=== PATIENT | male | born 1950 | race Caucasian/White ===

== ENCOUNTER 2020-04-06 20:37 | Emergency (ER) | payer MEDICARE, SELFPAY ==
[2020-04-06 20:48] VITALS: BP 168/95; PULSE 89; RESP 18; TEMP 36.9; O2SAT 97; BMI 18.1
--- NOTE | 2020-04-06 20:51 | XR_ITS ---
EXAMINATION: XR chest 1V CLINICAL INFORMATION: Reason for Exam fall COMPARISON: Prior chest x-ray 2017 TECHNIQUE: XR chest 1V Tubes and lines: None Lungs and Carolyn: Lungs are clear, evaluation limited oblique positioning. Pleura: Normal. Costophrenic angles are sharp. No pneumothorax. Heart and mediastinum: The mediastinum is within normal limits.. Bones: Skeletal structures included are normal for patient's age. XR/XR chest 1V IMPRESSION: No radiographic evidence of acute cardiopulmonary disease. Evaluation of the ribs is limited on chest x-ray, if rib fracture suspected may consider correlation with rib series and/or CT scan.
--- NOTE | 2020-04-06 20:51 | ED_ITS ---
HPI - Fall General Chief Complaint: Fall Stated Complaint: fall Time Seen by Provider: 04/06/20 21:51 Mode of arrival: EMS Limitations: no limitations History of Present Illness HPI Narrative: 70-year-old male presents with weakness, fall, and right elbow pain. He stated that he was in the bathroom doing personal care, his legs went weak and he fell backward. Did not hit his head and denies loss of consciousness. He uses O2 per baseline, takes multiple medications including psychiatric and cardiac meds, and drinks alcohol on a daily basis. he does have a wet chronic cough, and smokes. He did not report any chest pain or pressure, palpitations, Abdominal pain, abdominal distention, dysuria, hematuria, fevers, chills, and edema. MD complaint: fall Onset (ago): minute(s) ( Prior to arrival) Fall from: standing Fall witnessed: no Place fall occurred: home Loss of consciousness: none Prolonged down time: no Symptoms prior to fall: none Context: tripped/slipped and alcohol use Location of injury - extremities: right: elbow Severity: mild Severity scale (1-10): 6 Associated symptoms (after fall): denies Related Data Home Medications Medication Instructions Recorded Confirmed acetaminophen 650 mg PO DAILY 04/06/20 04/06/20 aspirin 81 mg PO DAILY 04/06/20 04/06/20 atorvastatin 40 mg PO DAILY 04/06/20 04/06/20 bupropion HCl 1 tab PO DAILY 04/06/20 04/06/20 carboxymethylcellulose sodium 0.5 drp OPHTHALMIC (EYE) DAILY PRN 04/06/20 04/06/20 [Refresh Tears] diazepam 1 tab PO DAILY 04/06/20 04/06/20 docusate sodium 1 cap PO BID 04/06/20 04/06/20 docusate sodium [DOK] 1 cap PO BID 04/06/20 finasteride 1 tab PO DAILY 04/06/20 04/06/20 fluticasone propionate [Flovent 2 puff INHALATION BID 04/06/20 04/06/20 HFA] isosorbide mononitrate 1 tab PO DAILY 04/06/20 04/06/20 loratadine 1 tab PO DAILY 04/06/20 04/06/20 meclizine 25 mg PO DAILY 04/06/20 04/06/20 metoprolol succinate 1 tab PO DAILY 04/06/20 04/06/20 nitroglycerin 0.4 mg SUBLINGUAL DAILY PRN 04/06/20 04/06/20 risperidone 3 mg PO Q OTHER DAY PRN 04/06/20 04/06/20 sodium chloride 1 mg PO DAILY 04/06/20 04/06/20 tamsulosin 1 cap PO DAILY 04/06/20 04/06/20 Allergies Allergy/AdvReac Type Severity Reaction Status Date / Time No Known Allergies Allergy Unverified 02/29/20 14:50 [No Known Allergies*] N.K.D.A. Allergy Unknown Uncoded 11/09/17 00:00 Review of Systems Review of Systems: Constitutional: No Fever, No Chills ENT/Mouth: No Hoarseness, No sore throat, No Rhinorrhea Eyes: No Redness, No Discharge, No Vision Changes Cardiovascular: No Chest Pain, positive SOB, positive Dyspnea on Exertion, No Edema Respiratory: positive Cough, positive Sputum, positive Wheezing, Gastrointestinal: No Nausea, No Vomiting, No Diarrhea, No abdominal Pain Genitourinary: No Dysuria, No Hematuria Musculoskeletal: right elbow pain, No other joint pain, No Myalgias Skin: No rash Neuro: No Weakness, No Numbness, No Headache Psych: No anxiety, depression, no SI, HI, auditory visual hallucinations Heme/Lymph: No Bruising, No Bleeding Endocrine: No Polyuria, No Polydipsia Yes all other systems are reviewed and are negative [facility] Past Medical History Attestation statement: The following information was validated with the patient. Medical History COPD (chronic obstructive pulmonary disease) Hypertension Social History Social History Advance Directives: No Advance Directives Information Provided: Yes Physical Exam Vital Signs: Vital Signs: Vital Signs Temp Pulse Resp BP Pulse Ox 04/06/20 22:00 79 18 178/94 H 100 04/06/20 21:06 81 18 150/90 H 97 04/06/20 20:48 98.4 F 89 18 168/95 H 97 Body Mass Index 18.1 Appearance: Alert. Oriented X3. No acute distress. Head: Normal external exam. Normocephalic. Atraumatic. No Weeks signs noted. No raccoon eyes noted Eyes: PERRLA. EOMI. Conjunctiva and sclera normal. Eyelids normal. ENT: TM's Normal. Pharynx normal. Uvula midline. Moist mucous membranes. No trismus noted. No drooling noted. No muffled voice noted. Neck: Normal inspection. Neck supple. No adenopathy. Thyroid Normal. No meningeal signs. No neck mass noted. CVS: Normal heart rate and rhythm. Heart sound normal. No murmurs noted. Pulses equal to all extremities. Respiratory: wet cough, O2 dependent, coarse lung sounds, No respiratory distress. Painless inspiration. Chest nontender. No accessory muscle usage noted or decreased air movement noted. Abdomen: Soft and nontender. Bowel sounds normal in all 4 quadrants. No distention noted. No organomegaly noted. No visible injury noted. Back: No CVA tenderness. Full range of motion noted. Skin: Skin warm and dry. Normal skin color. Normal skin turgor. No rashes/lesions/lacerations noted. Extremities: No lower extremity edema. Extremities exhibit normal range of motion. Extremities nontender. Neuro: cranial nerves 2-12 intact, no focal neural deficits, strength 5/5 to all extremities, No motor deficit. No sensory deficit. Reflexes normal. Course Course Course Narrative: plan of care is to rule out infection, pneumonia, ETOH or drug intoxication, electrolyte balance, infection. Patient does have coarse lung sounds which have been chronic, is O2 dependent. Uses alcohol on a daily basis. Will rule out ACS. EKG shows ST wave changes consistent with LVH, although more prominent today Than prior exams. We will order a 2nd troponin. Second troponin is 13.7, there is no delta wave, plan of care is to discharge home. We did address his alcohol consumption, he is not interested in detox at this time. Patient does understand that he must follow up with primary care provider as the CT scan does show some changes that indicate possibility of lung cancer. Patient verbalizes understanding of and agrees to plan of care to discharge home. MDM - Fall MDM Narrative Medical decision making narrative: Pneumonia, ACS, UTI, alcohol intoxication, substance abuse Differential Diagnosis Differential diagnosis: Likely syncope Medical Records Attestation: I reviewed the patient's medical records. Lab Data Attestation: I reviewed the patient's lab results. Result diagrams: 04/06/20 21:25 04/06/20 21:25 Labs: Lab Results 04/06/20 04/06/20 04/06/20 Range/Units 21:25 21:25 21:25 WBC (4.8-10.8) X10*3/uL RBC (4.60-5.80) X10*6/uL Hgb (14.0-18.0) g/dl Hct (42-52) % MCV (80-98) fL MCH (27.0-33.0) pg MCHC (31.0-36.0) g/dl RDW (11.0-16.0) % Plt Count (160-400) X10*3/uL MPV (9.4-12.4) fL Immature Gran % (Auto) (0.0-0.4) % Neut % (Auto) (45-73) % Lymph % (Auto) (20-40) % [place] % (Auto) (2-11) % Eos % (Auto) (0-4) % Baso % (Auto) (0-2) % Lymph # (Auto) (1.2-4.9) X10*3/uL [place] # (Auto) (0.1-1.2) X10*3/uL Eos # (Auto) (0.0-0.4) X10*3/uL Baso # (Auto) (0.0-0.2) X10*3/uL Abs Immat Gran (auto) (0.00-0.03) X10*3/uL Absolute Neuts (auto) (2.0-8.3) X10*3/uL Absolute Nucleated RBC (0.0-0.012) X10*3/uL Nucleated RBC % (auto) (0.0-0.2) /100WBC Sodium (135-145) mmol/L Potassium (3.3-5.1) mmol/l Chloride (96-108) mmol/L Carbon Dioxide (22-29) mmol/L Anion Gap (12-20) BUN (9-16) mg/dL Creatinine (0.5-1.4) mg/dL Estim Creat Clear Calc Estimated GFR POC Glucose (60-115) mg/dL Random Glucose (60-115) mg/dL Calcium (8.4-10.2) mg/dL Magnesium Cancelled Troponin I High Sens 13.4 (<3.5-35.0) ng/L Urine Color Urine Appearance Urine pH (5.0-8.0) Ur Specific [place] (1.005-1.025) Urine Protein (NEG-TRACE) MG/DL Urine Glucose (UA) (NEG) MG/DL Urine Ketones (NEG) MG/DL Urine Blood (NEG) Urine Nitrite (NEG) Ur Leukocyte Esterase (NEG) Urine RBC (0) /HPF Urine WBC (0-4) /HPF Ur Squamous Epith Cells /LPF Urine Bacteria /LPF Urine Opiates Screen (Not Detect) Ur Barbiturates Screen (Not Detect) Ur Phencyclidine Scrn (Not Detect) Ur Amphetamines Screen (Not Detect) U Benzodiazepines Scrn (Not Detect) Urine Cocaine Screen (Not Detect) U Marijuana (THC) Screen (Not Detect) Ethyl Alcohol 108 mg/dL 04/06/20 04/06/20 04/06/20 Range/Units 21:25 21:25 21:25 WBC 6.2 (4.8-10.8) X10*3/uL RBC 4.30 L (4.60-5.80) X10*6/uL Hgb 14.6 (14.0-18.0) g/dl Hct 40.5 L (42-52) % MCV 94.2 (80-98) fL MCH 34.0 H (27.0-33.0) pg MCHC 36.0 (31.0-36.0) g/dl RDW 12.1 (11.0-16.0) % Plt Count 155 L (160-400) X10*3/uL MPV 9.0 L (9.4-12.4) fL Immature Gran % (Auto) 0.3 (0.0-0.4) % Neut % (Auto) 72.9 (45-73) % Lymph % (Auto) 19.3 L (20-40) % [place] % (Auto) 6.8 (2-11) % Eos % (Auto) 0.5 (0-4) % Baso % (Auto) 0.2 (0-2) % Lymph # (Auto) 1.2 (1.2-4.9) X10*3/uL [place] # (Auto) 0.4 (0.1-1.2) X10*3/uL Eos # (Auto) 0.0 (0.0-0.4) X10*3/uL Baso # (Auto) 0.0 (0.0-0.2) X10*3/uL Abs Immat Gran (auto) 0.02 (0.00-0.03) X10*3/uL Absolute Neuts (auto) 4.5 (2.0-8.3) X10*3/uL Absolute Nucleated RBC 0.000 (0.0-0.012) X10*3/uL Nucleated RBC % (auto) 0.0 (0.0-0.2) /100WBC Sodium 130 L (135-145) mmol/L Potassium 4.2 (3.3-5.1) mmol/l Chloride 92 L (96-108) mmol/L Carbon Dioxide 26 (22-29) mmol/L Anion Gap 16 (12-20) BUN 5 L (9-16) mg/dL Creatinine 0.60 (0.5-1.4) mg/dL Estim Creat Clear Calc 92.6 Estimated GFR > 60 POC Glucose (60-115) mg/dL Random Glucose 84 (60-115) mg/dL Calcium 8.9 (8.4-10.2) mg/dL Magnesium 1.8 Troponin I High Sens (<3.5-35.0) ng/L Urine Color YELLOW Urine Appearance CLEAR Urine pH 6.5 (5.0-8.0) Ur Specific [place] 1.010 (1.005-1.025) Urine Protein NEG (NEG-TRACE) MG/DL Urine Glucose (UA) NEG (NEG) MG/DL Urine Ketones NEG (NEG) MG/DL Urine Blood TRACE (NEG) Urine Nitrite NEG (NEG) Ur Leukocyte Esterase NEG (NEG) Urine RBC 1-4 (0) /HPF Urine WBC 1-4 (0-4) /HPF Ur Squamous Epith Cells TRACE /LPF Urine Bacteria TRACE /LPF Urine Opiates Screen (Not Detect) Ur Barbiturates Screen (Not Detect) Ur Phencyclidine Scrn (Not Detect) Ur Amphetamines Screen (Not Detect) U Benzodiazepines Scrn (Not Detect) Urine Cocaine Screen (Not Detect) U Marijuana (THC) Screen (Not Detect) Ethyl Alcohol mg/dL 04/06/20 04/06/20 04/06/20 Range/Units 21:25 21:37 23:38 WBC (4.8-10.8) X10*3/uL RBC (4.60-5.80) X10*6/uL Hgb (14.0-18.0) g/dl Hct (42-52) % MCV (80-98) fL MCH (27.0-33.0) pg MCHC (31.0-36.0) g/dl RDW (11.0-16.0) % Plt Count (160-400) X10*3/uL MPV (9.4-12.4) fL Immature Gran % (Auto) (0.0-0.4) % Neut % (Auto) (45-73) % Lymph % (Auto) (20-40) % [place] % (Auto) (2-11) % Eos % (Auto) (0-4) % Baso % (Auto) (0-2) % Lymph # (Auto) (1.2-4.9) X10*3/uL [place] # (Auto) (0.1-1.2) X10*3/uL Eos # (Auto) (0.0-0.4) X10*3/uL Baso # (Auto) (0.0-0.2) X10*3/uL Abs Immat Gran (auto) (0.00-0.03) X10*3/uL Absolute Neuts (auto) (2.0-8.3) X10*3/uL Absolute Nucleated RBC (0.0-0.012) X10*3/uL Nucleated RBC % (auto) (0.0-0.2) /100WBC Sodium (135-145) mmol/L Potassium (3.3-5.1) mmol/l Chloride (96-108) mmol/L Carbon Dioxide (22-29) mmol/L Anion Gap (12-20) BUN (9-16) mg/dL Creatinine (0.5-1.4) mg/dL Estim Creat Clear Calc Estimated GFR POC Glucose 84 (60-115) mg/dL Random Glucose (60-115) mg/dL Calcium (8.4-10.2) mg/dL Magnesium Troponin I High Sens 13.7 (<3.5-35.0) ng/L Urine Color Urine Appearance Urine pH (5.0-8.0) Ur Specific [place] (1.005-1.025) Urine Protein (NEG-TRACE) MG/DL Urine Glucose (UA) (NEG) MG/DL Urine Ketones (NEG) MG/DL Urine Blood (NEG) Urine Nitrite (NEG) Ur Leukocyte Esterase (NEG) Urine RBC (0) /HPF Urine WBC (0-4) /HPF Ur Squamous Epith Cells /LPF Urine Bacteria /LPF Urine Opiates Screen Not Detected (Not Detect) Ur Barbiturates Screen Not Detected (Not Detect) Ur Phencyclidine Scrn Not Detected (Not Detect) Ur Amphetamines Screen Not Detected (Not Detect) U Benzodiazepines Scrn POSITIVE H (Not Detect) Urine Cocaine Screen Not Detected (Not Detect) U Marijuana (THC) Screen Not Detected (Not Detect) Ethyl Alcohol mg/dL Imaging Data Chest x-ray: Attestation: I personally reviewed and interpreted this imaging study as follows: Radiologist's impression: TECHNIQUE: XR chest 1V Tubes and lines: None Lungs and Carolyn: Lungs are clear, evaluation limited oblique positioning. Pleura: Normal. Costophrenic angles are sharp. No pneumothorax. Heart and mediastinum: The mediastinum is within normal limits.. Bones: Skeletal structures included are normal for patient's age. XR/XR chest 1V IMPRESSION: No radiographic evidence of acute cardiopulmonary disease. Evaluation of the ribs is limited on chest x-ray, if rib fracture suspected may consider correlation with rib series and/or CT scan. CT scan - chest: Attestation: I personally reviewed and interpreted this imaging study as follows: Radiologist's impression: CT CHEST WITHOUT CONTRAST CLINICAL INFORMATION: Shortness of breath COMPARISON: Plain chest radiographs from 04/06/2020. Chest CT 08/26/2015. TECHNIQUE: Multidetector volumetric CT imaging of the chest was done. Axial MIP volume rendering provided. Sagittal and coronal reformatted images were obtained. This CT examination was performed using dose optimization techniques as appropriate, variously including the following: *Automated exposure control *Adjustment of mA and/or kV according to patient size (this includes techniques or standardized protocols for targeted exams where dose is matched to indication/reason for exam; i.e. extremities or head) *Use of iterative reconstruction technique DLP: 227 mGy-cm FINDINGS: WELFARE SUPERVISOR: Chronic severe hyperinflation. Chronic elevation of left diaphragm possibly related to underlying scoliosis. LUNGS: Severe emphysema. Interval formation of bullous disease in the right lower lobe. This may represent postinflammatory pneumatoceles. Rarely, pulmonary neoplasia can present as a thick-walled cyst. Advise entry of the patient into a program for yearly low-dose lung CT screening. A fissural nodule (series 4 image 38/66) consistent with a lymph node. Bibasilar subpleural reticulation, likely early fibrosis/smoking-related interstitial lung disease. Narrowing of the trachea in the coronal plane consistent with saber-sheath trachea of COPD. Secretions are present in the trachea and main bronchi. No fixed endobronchial lesion seen. MEDIASTINUM: No mediastinal mass. No lymphadenopathy. No thyroid lesion. Moderate atherosclerotic peripheral vascular disease. Normal caliber thoracic aorta. Marked three-vessel coronary disease. Minor pericardial thickening. No hiatal hernia. PLEURA: There may be minor pleural thickening on the left underlying dependent atelectasis. No effusion. AXILLA: No lymphadenopathy. UPPER ABDOMEN: A 2 cm liver cyst near the IVC. Atherosclerotic peripheral vascular disease. Bilateral renal cysts. Left adrenal hypertrophy. OSSEOUS STRUCTURES: Moderate degenerative disease throughout the visualized spine. CT/CT chest wo con IMPRESSION: 1. Severe emphysema. 2. New abnormally thick-walled complex bulla at the right base. This can be an atypical presentation of lung cancer. Recommend repeat low-dose noncontrast CT scan of the chest in 3 months time. Recommend entry of the patient into a yearly program of low-dose lung CT screening. 3. Coronary artery disease and atherosclerotic peripheral vascular disease. ECG Data Attestation: I personally reviewed and interpreted this ECG as follows: ECG interpretation date: 04/06/20 ECG interpretation time: 21:10 Prior ECG tracings: available for review Interpretation: Vent. Rate : 077 BPM Atrial Rate : 077 BPM P-R Int : 262 ms QRS Dur : 104 ms QT Int : 394 ms P-R-T Axes : 085 018 107 degrees QTc Int : 445 ms Sinus rhythm with 1st degree A-V block Left ventricular hypertrophy with repolarization abnormality Inferior infarct (cited on or before 01-MAR-2002) Abnormal ECG When compared with ECG of 08-DEC-2016 18:42, Premature ventricular complexes are no longer Present ST now depressed in Lateral leads Inverted T waves have replaced nonspecific T wave abnormality in Lateral leads Discharge Plan Discharge Clinical Impression: Alcohol abuse Lung cancer Qualifiers: Laterality: right Lung location: lower lobe of lung Qualified Code(s): C34.31 - Malignant neoplasm of lower lobe, right bronchus or lung Patient Disposition: Home, Self-Care Instructions: Lung Cancer (DC), Abuse of Alcohol (ED), Alcohol Use Disorder (ED) Additional Instructions: you were evaluated for weakness and fall. Your blood alcohol was 108. please do not mix alcohol with your psychiatric medications. Alcohol and benzo diazepam can cause significant side effects, is dangerous to use together, and increases risk for falls. Please follow-up with . Please call and request an appointment for an evaluation. We referred you to Dr. Pacheco, she Is an oncologist, a physician that specializes in cancer. Please call and request an appointment. CT scan of the chest shows an abnormality to the right lower lung consistent with lung cancer. You must follow-up with your primary care provider within the next week. Thank you for choosing this emergency department for evaluation. Please follow-up with primary care physician as needed. Return to the emergency depart ment for any new, concerning, or worsening symptoms. Prescriptions: No Action acetaminophen 650 mg tablet extended release 650 mg PO DAILY RF: 0 atorvastatin 40 mg tablet 40 mg PO DAILY RF: 0 bupropion HCl 150 mg tablet sustained-release 12 hr 1 tab PO DAILY RF: 0 metoprolol succinate 50 mg tablet extended release 24 hr 1 tab PO DAILY RF: 0 risperidone 4 mg tablet 3 mg PO Q OTHER DAY PRN (Reason: Chest Pain) RF: 0 isosorbide mononitrate 30 mg tablet extended release 24 hr 1 tab PO DAILY RF: 0 sodium chloride 1 gram tablet 1 mg PO DAILY RF: 0 meclizine 12.5 mg tablet 25 mg PO DAILY RF: 0 aspirin 81 mg tablet,delayed release (DR/EC) 81 mg PO DAILY RF: 0 tamsulosin 0.4 mg capsule 1 cap PO DAILY RF: 0 Refresh Tears 0.5 % drops 0.5 drp ophthalmic (eye) DAILY PRN (Reason: Dry Eyes) RF: 0 nitroglycerin 0.4 mg tablet, sublingual 0.4 mg sublingual DAILY PRN (Reason: Chest Pain) RF: 0 docusate sodium 100 mg capsule 1 cap PO BID RF: 0 docusate sodium [DOK] 100 mg capsule 1 cap PO BID RF: 0 Flovent HFA 220 mcg/actuation HFA aerosol inhaler 2 puff inhalation BID RF: 0 finasteride 5 mg tablet 1 tab PO DAILY RF: 0 loratadine 10 mg tablet 1 tab PO DAILY RF: 0 diazepam 5 mg tablet 1 tab PO DAILY RF: 0 Referrals: Ese Pacheco MD [Physician] - 2 days ( abnormal CT scan indicative of lung cancer) Americo Menjivar MD [Physician] - 2 days ( Weakness)
--- NOTE | 2020-04-06 20:54 | PC.NURSE ---
Pt to room #14 after falling after legs got weak and fell to the floor. PT denies any LOC, head/neck pain. Pt lives at home with his dog. Pt arrives A&Ox3, skin w/d, respirations easy, n/l. Awaiting for MD's eval.
[2020-04-06 21:06] VITALS: BP 150/90; PULSE 81; RESP 18; O2SAT 97
--- NOTE | 2020-04-06 21:09 | PC.NURSE ---
EKG obtained to
[2020-04-06 21:39] LABS: Basophils Percent Auto 0.2 % (0-2); Eosinophils Percent Auto 0.5 % (0-4); Glucose Urine UA NEG (NEG); Hematocrit 40.5 % (42-52); Hemoglobin 14.6 g/dl (14.0-18.0); Imm Gran Abs Auto 0.02 X10*3/uL (0.00-0.03); Imm Gran Pct Auto 0.3 % (0.0-0.4); Leukocyte Esterase Urine NEG (NEG); Lymphocytes Absolute Auto 1.2 X10*3/uL (1.2-4.9); Lymphocytes Percent Auto 19.3 % (20-40); MANUAL DIFF FLAG NO; Mean Corpuscular Volume 94.2 fL (80-98); Monocytes Absolute Auto 0.4 X10*3/uL (0.1-1.2); Monocytes Percent Auto 6.8 % (2-11); Neutrophils Absolute Auto 4.5 X10*3/uL (2.0-8.3); Neutrophils Percent Auto 72.9 % (45-73); Nitrite Urine NEG (NEG); PH 6.5 (5.0-8.0); Platelet Count 155 X10*3/uL (160-400); Red Cell Distribution Width 12.1 % (11.0-16.0); Urine Blood TRACE (NEG); Urine Ketones NEG (NEG); Urine Protein NEG (NEG-TRACE); White Blood Count 6.2 X10*3/uL (4.8-10.8)
[2020-04-06 21:40] LABS: Appearance Urine CLEAR; Color Urine YELLOW
[2020-04-06 21:40] LABS: Glucose, Whole Blood 84 mg/dL (60-115)
[2020-04-06 21:50] LABS: Bacteria Urine TRACE /LPF; Squamous Epithelial Cell Urine TRACE /LPF
--- NOTE | 2020-04-06 21:51 | CT_ITS ---
EXAMINATION: CT CHEST WITHOUT CONTRAST CLINICAL INFORMATION: Shortness of breath COMPARISON: Plain chest radiographs from 04/06/2020. Chest CT 08/26/2015. TECHNIQUE: Multidetector volumetric CT imaging of the chest was done. Axial MIP volume rendering provided. Sagittal and coronal reformatted images were obtained. This CT examination was performed using dose optimization techniques as appropriate, variously including the following: *Automated exposure control *Adjustment of mA and/or kV according to patient size (this includes techniques or standardized protocols for targeted exams where dose is matched to indication/reason for exam; i.e. extremities or head) *Use of iterative reconstruction technique DLP: 227 mGy-cm FINDINGS: SIGNAL OPERATOR: Chronic severe hyperinflation. Chronic elevation of left diaphragm possibly related to underlying scoliosis. LUNGS: Severe emphysema. Interval formation of bullous disease in the right lower lobe. This may represent postinflammatory pneumatoceles. Rarely, pulmonary neoplasia can present as a thick-walled cyst. Advise entry of the patient into a program for yearly low-dose lung CT screening. A fissural nodule (series 4 image 38/66) consistent with a lymph node. Bibasilar subpleural reticulation, likely early fibrosis/smoking-related interstitial lung disease. Narrowing of the trachea in the coronal plane consistent with saber-sheath trachea of COPD. Secretions are present in the trachea and main bronchi. No fixed endobronchial lesion seen. MEDIASTINUM: No mediastinal mass. No lymphadenopathy. No thyroid lesion. Moderate atherosclerotic peripheral vascular disease. Normal caliber thoracic aorta. Marked three-vessel coronary disease. Minor pericardial thickening. No hiatal hernia. PLEURA: There may be minor pleural thickening on the left underlying dependent atelectasis. No effusion. AXILLA: No lymphadenopathy. UPPER ABDOMEN: A 2 cm liver cyst near the IVC. Atherosclerotic peripheral vascular disease. Bilateral renal cysts. Left adrenal hypertrophy. OSSEOUS STRUCTURES: Moderate degenerative disease throughout the visualized spine. CT/CT chest wo con IMPRESSION: 1. Severe emphysema. 2. New abnormally thick-walled complex bulla at the right base. This can be an atypical presentation of lung cancer. Recommend repeat low-dose noncontrast CT scan of the chest in 3 months time. Recommend entry of the patient into a yearly program of low-dose lung CT screening. 3. Coronary artery disease and atherosclerotic peripheral vascular disease.
[2020-04-06 22:00] VITALS: BP 178/94; PULSE 79; RESP 18; O2SAT 100
[2020-04-06 22:20] LABS: Ethanol 108 mg/dL
[2020-04-06 22:23] LABS: Amphetamine Screen Urine Not Detected (Not Detect); Anion Gap 16 (12-20); Barbiturates, Urine Not Detected (Not Detect); Benzodiazepines Screen Urine POSITIVE (Not Detect); Blood Urea Nitrogen 5 mg/dL (9-16); Calcium 8.9 mg/dL (8.4-10.2); Cannabinoid Screen Urine Not Detected (Not Detect); Carbon Dioxide 26 mmol/L (22-29); Chloride 92 mmol/L (96-108); Cocaine Screen Urine Not Detected (Not Detect); Creatinine Clr Calc Pharmacy 92.6; Estimated Glomerular Filt Rate > 60; Glucose Random 84 mg/dL (60-115); Opiate Screen Urine Not Detected (Not Detect); Phencyclidine Screen Urine Not Detected (Not Detect); Potassium 4.2 mmol/l (3.3-5.1); Sodium 130 mmol/L (135-145)
[2020-04-06 22:30] LABS: Troponin-I High Sensitivity 13.4 ng/L (<3.5-35.0)
[2020-04-06] MEDS: 0.9 % Sodium Chloride 1,000 ML 999 ML IVCONT (22:45)
[2020-04-06 22:48] LABS: Magnesium 1.8 mg/dL (1.6-2.6)
--- NOTE | 2020-04-06 23:45 | PC.NURSE ---
Repeat Troponin drawn to lab. PA in room for re-eval of pt. pt remains A&Ox3, skin w/d. respirations easy, n/l. Pt awaiting for possible d/c to home,
[2020-04-07] VITALS: BP 187/96; PULSE 89; RESP 18; O2SAT 96
[2020-04-07 00:41] LABS: Troponin-I High Sensitivity 13.7 ng/L (<3.5-35.0)
[2020-04-07 01:14] VITALS: BP 158/90; PULSE 88; RESP 18; O2SAT 96
--- NOTE | 2020-04-07 01:24 | PC.NURSE ---
EMS here for transport to home. Pt left ED in NAD. Pt denies any complaints upon discharge.
== END 2020-04-07 01:28 | disposition home or self-care (01) ==
PROVIDERS: Nurse Practitioner Family; Emergency Provider Emergency Medicine
DX: S59.901A Unspecified injury of right elbow, initial encounter (principal); M25.521 Pain in right elbow; F10.129 Alcohol abuse with intoxication, unspecified; C34.31 Malignant neoplasm of lower lobe, right bronchus or lung; R06.02 Shortness of breath; I10 Essential (primary) hypertension; Y90.5 Blood alcohol level of 100-119 mg/100 ml; W01.0XXA Fall on same level from slipping, tripping and stumbling without subsequent striking against object, initial encounter; Y93.9 Activity, unspecified; Y92.002 Bathroom of unspecified non-institutional (private) residence as the place of occurrence of the external cause; Z79.899 Other long term (current) drug therapy; F17.200 Nicotine dependence, unspecified, uncomplicated; Z71.6 Tobacco abuse counseling
CPT/HCPCS: 36415; 71045; 71250; 80048; 80307; 80320; 81001; 82947; 83735; 84484; 85025; 93005; 96360; 99284

== ENCOUNTER 2020-08-25 09:44 | Inpatient (IN) | payer OTHER, SELFPAY ==
[2020-08-25] VITALS (10 sets, daily range): BP systolic 110–186; BP diastolic 64–109; PULSE 86–109; RESP 18–20; TEMP 36.7–36.8; O2SAT 95; BMI 21.7
--- NOTE | 2020-08-25 10:06 | ECG_ITS ---
Test Reason : SOB Blood Pressure : / mmHG Vent. Rate : 088 BPM Atrial Rate : 088 BPM P-R Int : 236 ms QRS Dur : 102 ms QT Int : 360 ms P-R-T Axes : 020 021 102 degrees QTc Int : 435 ms Sinus rhythm with 1st degree A-V block with occasional Premature ventricular complexes and Premature atrial complexes Inferior infarct (cited on or before 01-MAR-2002) T wave abnormality, consider lateral ischemia Abnormal ECG When compared with ECG of 06-APR-2020 21:10, Premature ventricular complexes are now Present Premature atrial complexes are now Present Referred By: Mckenna Cole Electronically Signed By:Eldon Wright
--- NOTE | 2020-08-25 10:07 | ED.GIBLEED ---
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 He reports he was up all night having black bowel movements. It is associated with dull central abdominal pain. He has a history of GI bleed last year; reports an EGD was performed but no cause was identified. He denies any history of liver disease. He is on baby aspirin, no anticoagulation, no iron. He reports chills yesterday but no fevers. He has a chronic smoker's cough which is unchanged. He denies SOB or chest pain. He reports dizziness since the vomiting and black stools started. MD complaint: coffee ground emesis and melena Onset (ago): day(s) (1) Pain Consistency: constant Severity: mild Relieving factors: none Exacerbating factors: none Context: history of GI bleed Associated symptoms: abdominal pain, nausea, vomiting, loss of appetite, malaise and weakness Treatments Prior to Arrival: none Related Data Home Medications Medication Instructions Recorded Confirmed acetaminophen 650 mg PO DAILY 04/06/20 04/06/20 aspirin 81 mg PO DAILY 04/06/20 04/06/20 atorvastatin 40 mg PO DAILY 04/06/20 04/06/20 bupropion HCl 1 tab PO DAILY 04/06/20 04/06/20 carboxymethylcellulose sodium 0.5 drp OPHTHALMIC (EYE) DAILY PRN 04/06/20 04/06/20 [Refresh Tears] diazepam 1 tab PO DAILY 04/06/20 04/06/20 docusate sodium 1 cap PO BID 04/06/20 04/06/20 docusate sodium [DOK] 1 cap PO BID 04/06/20 finasteride 1 tab PO DAILY 04/06/20 04/06/20 fluticasone propionate [Flovent 2 puff INHALATION BID 04/06/20 04/06/20 HFA] isosorbide mononitrate 1 tab PO DAILY 04/06/20 04/06/20 loratadine 1 tab PO DAILY 04/06/20 04/06/20 meclizine 25 mg PO DAILY 04/06/20 04/06/20 metoprolol succinate 1 tab PO DAILY 04/06/20 04/06/20 nitroglycerin 0.4 mg SUBLINGUAL DAILY PRN 04/06/20 04/06/20 risperidone 3 mg PO Q OTHER DAY PRN 04/06/20 04/06/20 sodium chloride 1 mg PO DAILY 04/06/20 04/06/20 tamsulosin 1 cap PO DAILY 04/06/20 04/06/20 Allergies Allergy/AdvReac Type Severity Reaction Status Date / Time No Known Allergies Allergy Unverified 02/29/20 14:50 [No Known Allergies*] N.K.D.A. Allergy Unknown Uncoded 11/09/17 00:00 Review of Systems Review of Systems: Constitutional: No Fever, + Chills ENT/Mouth: No sore throat, No Rhinorrhea, No Swallowing Difficulty Eyes: No Eye Pain, No Swelling, No Redness Cardiovascular: No Chest Pain, No SOB, No Orthopnea, No Edema Respiratory: + Cough, No Sputum, No Wheezing, No dyspnea Gastrointestinal: + Nausea, + Vomiting, + Diarrhea (loose), + abdominal Pain, No Hematochezia, + Melena Genitourinary: No Dysuria, No Urinary Frequency, No Hematuria Musculoskeletal: No joint pain, No Myalgias Skin: No Skin Lesions, No rash Neuro: No Weakness, No Numbness, + Dizziness, No Headache Psych: No Anxiety/Panic, No Depression Heme/Lymph: No Bruising, No Lymphadenopathy Endocrine: No Polyuria, No Polydipsia PMFSH Past Medical History Attestation statement: The following information was validated with the patient. Medical History COPD (chronic obstructive pulmonary disease) Depression High cholesterol Hypertension Surgical History (Updated 08/25/20 @ 09:58 by Edita Maddox) History of nasal surgery Social History Social History (Updated 08/25/20 @ 10:16 by WILLI Cardona) Alcohol intake: current Alcohol intake frequency: 0-2 drinks per day Alcohol type: beer Smoking Status: Current every day smoker Tobacco Type: Cigarette Cigarettes Per Day: 8 Smoked in Last 30 Days: Yes Patient Interested in Nicotine Replacement: No Use of substances other than those prescribed or required for medical reasons: No Advance Directives: No Advance Directives Information Provided: No Physical Exam Vital Signs: Vital Signs: Last Vital Signs Temp 98.0 F 08/25/20 10:13 Pulse 99 08/25/20 12:34 Resp 18 08/25/20 10:13 BP 173/91 H 08/25/20 12:34 Pulse Ox 95 08/25/20 10:13 Body Mass Index 21.7 Appearance: Alert. Oriented X3. No acute distress. Eyes: Pupils equal, round and reactive to light. ENT: Pharynx normal. Neck: Normal inspection. Neck supple. CVS: Normal heart rate and rhythm. Pulses normal. Respiratory: No respiratory distress. Breath sounds normal. Abdomen: Soft with mild epigastric tenderness, no rebound or guarding. +BS x4. ADAN: dark brown stool noted around anus, normal shincter tone, mild tenderness, dark brown stool on rectal. Skin: Skin warm and dry. Normal skin color. Normal skin turgor. No rashes. Extremities: No lower extremity edema. Neuro: Oriented X 3. No motor deficit. No sensory deficit. Affect is flat. Course Course Course Narrative: 70 y/o male presenting with coffee ground emesis and melena x1 day, associated with dull abdominal pain and dizziness. Appears slightly pale on exam. No tachycardic. Low suspicion for variceal bleed given lack of liver disease and vomitus was dark in color. Concern for upper GI bleed, possible gastritis vs PUD. Will get CBC, INR, type and screen, CMP, EKG and orthostatic VS. Will gently hydrate now. Reevaluation(s) Reevaluation #1: Labs showing mild normocytic anemia with H/H 13.2/35.6 from a baseline of 14.6/40.5 back in March 2020. Stool is heme negative. Orthostatic VS and other labs still pending. Reevaluation #2: Sodium critically low at 118. He is on 1 g salt tab once per day with known hx SIADH. He reports he his not supposed to be on a fluid restriction. He has been drinking 4-5 water bottles per day. He is AAO x3 but has symptoms of mild-moderate hyponatremia with fatgiue, weakness, nausea, vomiting & dizziness. He has been given 1L IVF. Will repeat sodium now as well as urine lytes. Nephrology has been consulted for recs. Reevaluation #3: Urine sodium <20 with low urine osm consistent with hypovolemia, mixed picture with hx SIADH and not adhering to a fluid restriction. Repeat sodium 121 which corresponds to hypovolemia. [facility] who is recommending NPO, Q4 sodium checks. If next sodium is 121 or less to give additional saline bolus. He also recommends starting salt tabs 1 g TID. Ordered placed. Spoke with Elvira Goldsmith who accepts patient for admission. MDM - GI Bleed Medical Records Attestation: I reviewed the patient's medical records. Lab Data Attestation: I reviewed the patient's lab results. Result diagrams: 08/25/20 10:23 08/25/20 12:43 Labs: Lab Results 08/25/20 08/25/20 08/25/20 Range/Units 10:23 10:23 10:23 WBC 11.0 H (4.8-10.8) X10*3/uL RBC 3.86 L (4.60-5.80) X10*6/uL Hgb 13.2 L (14.0-18.0) g/dl Hct 35.6 L (42-52) % MCV 92.2 (80-98) fL MCH 34.2 H (27.0-33.0) pg MCHC 37.1 H (31.0-36.0) g/dl RDW 11.8 (11.0-16.0) % Plt Count 162 (160-400) X10*3/uL MPV 9.0 L (9.4-12.4) fL Immature Gran % (Auto) 0.6 H (0.0-0.4) % Neut % (Auto) 83.3 H (45-73) % Lymph % (Auto) 9.0 L (20-40) % [place] % (Auto) 6.9 (2-11) % Eos % (Auto) 0.1 (0-4) % Baso % (Auto) 0.1 (0-2) % Lymph # (Auto) 1.0 L (1.2-4.9) X10*3/uL [place] # (Auto) 0.8 (0.1-1.2) X10*3/uL Eos # (Auto) 0.0 (0.0-0.4) X10*3/uL Baso # (Auto) 0.0 (0.0-0.2) X10*3/uL Abs Immat Gran (auto) 0.07 H (0.00-0.03) X10*3/uL Absolute Neuts (auto) 9.1 H (2.0-8.3) X10*3/uL Absolute Nucleated RBC 0.000 (0.0-0.012) X10*3/uL Nucleated RBC % (auto) 0.0 (0.0-0.2) /100WBC PT 13.5 H (10.8-13.0) SEC INR 1.1 (0.9-1.1) APTT 35.5 (24.1-38.0) SEC Sodium 118 L* (135-145) mmol/L Potassium 3.8 (3.3-5.1) mmol/L Chloride 83 L (96-108) mmol/L Carbon Dioxide 28 (22-29) mmol/L Anion Gap 11 L (12-20) BUN 6 L (9-16) mg/dL Creatinine 0.62 (0.5-1.4) mg/dL Estim Creat Clear Calc 98.7 Estimated GFR > 60 Random Glucose 102 (60-115) mg/dL Calcium 8.2 L D (8.4-10.2) mg/dL Magnesium 1.6 (1.6-2.6) mg/dL Total Bilirubin 0.8 (0.0-1.0) mg/dL Direct Bilirubin 0.5 (0.0-0.5) mg/dL AST 22 (5-37) U/L ALT 12 (0-40) U/L Alkaline Phosphatase 67 (39-117) U/L Troponin I High Sens (<3.5-35.0) ng/L Total Protein 6.0 L (6.5-8.0) g/dL Albumin 3.5 (3.5-5.0) g/dL Urine Color Urine Appearance Urine pH (5.0-8.0) Ur Specific [place] (1.005-1.025) Urine Protein (NEG-TRACE) MG/DL Urine Glucose (UA) (NEG) MG/DL Urine Ketones (NEG) MG/DL Urine Blood (NEG) Urine Nitrite (NEG) Ur Leukocyte Esterase (NEG) Urine Osmolality (373-1093) mosm/kg Ur Random Sodium mmol/L Stool Occult Blood (NEG) Ethyl Alcohol mg/dL COVID-19 (GARRETT) (Negative) COVID-19 Clin Com Blood Type Antibody Screen 08/25/20 08/25/20 08/25/20 Range/Units 10:23 10:23 10:23 WBC (4.8-10.8) X10*3/uL RBC (4.60-5.80) X10*6/uL Hgb (14.0-18.0) g/dl Hct (42-52) % MCV (80-98) fL MCH (27.0-33.0) pg MCHC (31.0-36.0) g/dl RDW (11.0-16.0) % Plt Count (160-400) X10*3/uL MPV (9.4-12.4) fL Immature Gran % (Auto) (0.0-0.4) % Neut % (Auto) (45-73) % Lymph % (Auto) (20-40) % [place] % (Auto) (2-11) % Eos % (Auto) (0-4) % Baso % (Auto) (0-2) % Lymph # (Auto) (1.2-4.9) X10*3/uL [place] # (Auto) (0.1-1.2) X10*3/uL Eos # (Auto) (0.0-0.4) X10*3/uL Baso # (Auto) (0.0-0.2) X10*3/uL Abs Immat Gran (auto) (0.00-0.03) X10*3/uL Absolute Neuts (auto) (2.0-8.3) X10*3/uL Absolute Nucleated RBC (0.0-0.012) X10*3/uL Nucleated RBC % (auto) (0.0-0.2) /100WBC PT (10.8-13.0) SEC INR (0.9-1.1) APTT (24.1-38.0) SEC Sodium (135-145) mmol/L Potassium (3.3-5.1) mmol/L Chloride (96-108) mmol/L Carbon Dioxide (22-29) mmol/L Anion Gap (12-20) BUN (9-16) mg/dL Creatinine (0.5-1.4) mg/dL Estim Creat Clear Calc Estimated GFR Random Glucose (60-115) mg/dL Calcium (8.4-10.2) mg/dL Magnesium (1.6-2.6) mg/dL Total Bilirubin (0.0-1.0) mg/dL Direct Bilirubin (0.0-0.5) mg/dL AST (5-37) U/L ALT (0-40) U/L Alkaline Phosphatase (39-117) U/L Troponin I High Sens 9.8 (<3.5-35.0) ng/L Total Protein (6.5-8.0) g/dL Albumin (3.5-5.0) g/dL Urine Color Urine Appearance Urine pH (5.0-8.0) Ur Specific [place] (1.005-1.025) Urine Protein (NEG-TRACE) MG/DL Urine Glucose (UA) (NEG) MG/DL Urine Ketones (NEG) MG/DL Urine Blood (NEG) Urine Nitrite (NEG) Ur Leukocyte Esterase (NEG) Urine Osmolality (373-1093) mosm/kg Ur Random Sodium mmol/L Stool Occult Blood (NEG) Ethyl Alcohol < 10 mg/dL COVID-19 (GARRETT) Negative (Negative) COVID-19 Clin Com See Note Blood Type Antibody Screen 08/25/20 08/25/20 08/25/20 Range/Units 10:23 11:30 11:30 WBC (4.8-10.8) X10*3/uL RBC (4.60-5.80) X10*6/uL Hgb (14.0-18.0) g/dl Hct (42-52) % MCV (80-98) fL MCH (27.0-33.0) pg MCHC (31.0-36.0) g/dl RDW (11.0-16.0) % Plt Count (160-400) X10*3/uL MPV (9.4-12.4) fL Immature Gran % (Auto) (0.0-0.4) % Neut % (Auto) (45-73) % Lymph % (Auto) (20-40) % [place] % (Auto) (2-11) % Eos % (Auto) (0-4) % Baso % (Auto) (0-2) % Lymph # (Auto) (1.2-4.9) X10*3/uL [place] # (Auto) (0.1-1.2) X10*3/uL Eos # (Auto) (0.0-0.4) X10*3/uL Baso # (Auto) (0.0-0.2) X10*3/uL Abs Immat Gran (auto) (0.00-0.03) X10*3/uL Absolute Neuts (auto) (2.0-8.3) X10*3/uL Absolute Nucleated RBC (0.0-0.012) X10*3/uL Nucleated RBC % (auto) (0.0-0.2) /100WBC PT (10.8-13.0) SEC INR (0.9-1.1) APTT (24.1-38.0) SEC Sodium (135-145) mmol/L Potassium (3.3-5.1) mmol/L Chloride (96-108) mmol/L Carbon Dioxide (22-29) mmol/L Anion Gap (12-20) BUN (9-16) mg/dL Creatinine (0.5-1.4) mg/dL Estim Creat Clear Calc Estimated GFR Random Glucose (60-115) mg/dL Calcium (8.4-10.2) mg/dL Magnesium (1.6-2.6) mg/dL Total Bilirubin (0.0-1.0) mg/dL Direct Bilirubin (0.0-0.5) mg/dL AST (5-37) U/L ALT (0-40) U/L Alkaline Phosphatase (39-117) U/L Troponin I High Sens (<3.5-35.0) ng/L Total Protein (6.5-8.0) g/dL Albumin (3.5-5.0) g/dL Urine Color YELLOW Urine Appearance CLEAR Urine pH 7.0 (5.0-8.0) Ur Specific [place] <= 1.005 (1.005-1.025) Urine Protein NEG (NEG-TRACE) MG/DL Urine Glucose (UA) NEG (NEG) MG/DL Urine Ketones NEG (NEG) MG/DL Urine Blood NEG (NEG) Urine Nitrite NEG (NEG) Ur Leukocyte Esterase NEG (NEG) Urine Osmolality (373-1093) mosm/kg Ur Random Sodium mmol/L Stool Occult Blood NEG (NEG) Ethyl Alcohol mg/dL COVID-19 ([facility]ARRETT) (Negative) COVID-19 Clin Com Blood Type O Positive Antibody Screen NEGATIVE 08/25/20 08/25/20 08/25/20 Range/Units 11:30 11:30 12:43 WBC (4.8-10.8) X10*3/uL RBC (4.60-5.80) X10*6/uL Hgb (14.0-18.0) g/dl Hct (42-52) % MCV (80-98) fL MCH (27.0-33.0) pg MCHC (31.0-36.0) g/dl RDW (11.0-16.0) % Plt Count (160-400) X10*3/uL MPV (9.4-12.4) fL Immature Gran % (Auto) (0.0-0.4) % Neut % (Auto) (45-73) % Lymph % (Auto) (20-40) % [place] % (Auto) (2-11) % Eos % (Auto) (0-4) % Baso % (Auto) (0-2) % Lymph # (Auto) (1.2-4.9) X10*3/uL [place] # (Auto) (0.1-1.2) X10*3/uL Eos # (Auto) (0.0-0.4) X10*3/uL Baso # (Auto) (0.0-0.2) X10*3/uL Abs Immat Gran (auto) (0.00-0.03) X10*3/uL Absolute Neuts (auto) (2.0-8.3) X10*3/uL Absolute Nucleated RBC (0.0-0.012) X10*3/uL Nucleated RBC % (auto) (0.0-0.2) /100WBC PT (10.8-13.0) SEC INR (0.9-1.1) APTT (24.1-38.0) SEC Sodium 121 L (135-145) mmol/L Potassium (3.3-5.1) mmol/L Chloride (96-108) mmol/L Carbon Dioxide (22-29) mmol/L Anion Gap (12-20) BUN (9-16) mg/dL Creatinine (0.5-1.4) mg/dL Estim Creat Clear Calc Estimated GFR Random Glucose (60-115) mg/dL Calcium (8.4-10.2) mg/dL Magnesium (1.6-2.6) mg/dL Total Bilirubin (0.0-1.0) mg/dL Direct Bilirubin (0.0-0.5) mg/dL AST (5-37) U/L ALT (0-40) U/L Alkaline Phosphatase (39-117) U/L Troponin I High Sens (<3.5-35.0) ng/L Total Protein (6.5-8.0) g/dL Albumin (3.5-5.0) g/dL Urine Color Urine Appearance Urine pH (5.0-8.0) Ur Specific [place] (1.005-1.025) Urine Protein (NEG-TRACE) MG/DL Urine Glucose (UA) (NEG) MG/DL Urine Ketones (NEG) MG/DL Urine Blood (NEG) Urine Nitrite (NEG) Ur Leukocyte Esterase (NEG) Urine Osmolality 128 L (373-1093) mosm/kg Ur Random Sodium < 20.0 mmol/L Stool Occult Blood (NEG) Ethyl Alcohol mg/dL COVID-19 ([facility]RETT) (Negative) COVID-19 Clin Com Blood Type Antibody Screen ECG Data Attestation: I personally reviewed and interpreted this ECG as follows: ECG interpretation date: 08/25/20 ECG interpretation time: 09:35 Interpretation: normal sinus rhythm with 1st degree AV block, MI interval 236 ms, occasional PVC's noted, t-wave inversions in V5-V6 consistent with early repolarization. Normal QTc. No ST segment elevations. Critical Care Time Critical Care Time Critical Care Time: Yes Total Critical Care Time: 45 Attestation: I attest to critical care time spent caring for this patient with symptomatic hyponatremia, requiring frequent monitoring, review of old records and coordinating care with specialist. Discharge Plan Discharge Clinical Impression: Hyponatremia Anemia Qualifiers: Anemia type: unspecified type Qualified Code(s): D64.9 - Anemia, unspecified Patient Disposition: Admitted As Inpatient
[2020-08-25 10:31] LABS: MANUAL DIFF FLAG NO
[2020-08-25 10:32] LABS: Basophils Percent Auto 0.1 % (0-2); Eosinophils Percent Auto 0.1 % (0-4); Hematocrit 35.6 % (42-52); Hemoglobin 13.2 g/dl (14.0-18.0); Imm Gran Abs Auto 0.07 X10*3/uL (0.00-0.03); Imm Gran Pct Auto 0.6 % (0.0-0.4); Mean Corpuscular HGB Conc 37.1 g/dl (31.0-36.0); Mean Corpuscular Hemoglobin 34.2 pg (27.0-33.0); Mean Corpuscular Volume 92.2 fL (80-98); Monocytes Absolute Auto 0.8 X10*3/uL (0.1-1.2); Monocytes Percent Auto 6.9 % (2-11); Neutrophils Absolute Auto 9.1 X10*3/uL (2.0-8.3); Neutrophils Percent Auto 83.3 % (45-73); Platelet Count 162 X10*3/uL (160-400); Red Blood Count 3.86 X10*6/uL (4.60-5.80); Red Cell Distribution Width 11.8 % (11.0-16.0)
[2020-08-25 10:33] LABS: OBS Int Ctl Valid YES; OBS1 NEG (NEG)
[2020-08-25 10:39] LABS: INTERNATIONAL NORM RATIO 1.1 (0.9-1.1); Prothrombin Time 13.5 SEC (10.8-13.0)
[2020-08-25 10:42] LABS: Partial Thromboplastin Time 35.5 SEC (24.1-38.0)
[2020-08-25] MEDS: 0.9 % Sodium Chloride 1,000 ML 999 ML IVCONT (10:48)
[2020-08-25] MEDS: Pantoprazole Sodium 40 MG/10 ML VIAL IVPUSH ×2 (10:48→21:20)
[2020-08-25 10:53] LABS: COVID-19 Test Negative (Negative); IDNOW Serial# 9DD0AD1C
[2020-08-25 11:01] LABS: Troponin-I High Sensitivity 9.8 ng/L (<3.5-35.0)
[2020-08-25 11:21] LABS: Ethanol < 10 mg/dL
[2020-08-25 11:40] LABS: Glucose Urine UA NEG (NEG); Leukocyte Esterase Urine NEG (NEG); Nitrite Urine NEG (NEG); Specific Gravity - Urine <= 1.005 (1.005-1.025); Urine Blood NEG (NEG); Urine Ketones NEG (NEG); Urine Protein NEG (NEG-TRACE)
[2020-08-25 11:44] LABS: Appearance Urine CLEAR; Color Urine YELLOW
[2020-08-25 11:59] LABS: Alanine Aminotransferase 12 U/L (0-40); Albumin Level 3.5 g/dL (3.5-5.0); Alkaline Phosphatase 67 U/L (39-117); Anion Gap 11 (12-20); Aspartate Amino Transferase 22 U/L (5-37); Bilirubin Direct 0.5 mg/dL (0.0-0.5); Bilirubin Total 0.8 mg/dL (0.0-1.0); Blood Urea Nitrogen 6 mg/dL (9-16); Calcium 8.2 mg/dL (8.4-10.2); Carbon Dioxide 28 mmol/L (22-29); Chloride 83 mmol/L (96-108); Creatinine Clr Calc Pharmacy 98.7; Estimated Glomerular Filt Rate > 60; Glucose Random 102 mg/dL (60-115); Magnesium 1.6 mg/dL (1.6-2.6); Potassium 3.8 mmol/L (3.3-5.1); Sodium 118 mmol/L (135-145)
[2020-08-25 12:21] LABS: Osmolality Urine 128 mosm/kg (373-1093)
[2020-08-25 12:26] LABS: Sodium Urine Random < 20.0 mmol/L
[2020-08-25 13:07] LABS: Sodium 121 mmol/L (135-145)
[2020-08-25] MEDS: Sodium Chloride Tab 1 GM TABLET PO ×2 (14:59→21:19)
--- NOTE | 2020-08-25 15:02 | PC.NURSE ---
pt found by the side of the stretcher, attempting to urinate, the bed sheets covered with smears of brown stool. pt noticeably shaky and unsteady on his feet, bp elevated and hr ranges from 105-95. this rn asked the pt multiple times if he is being honest about his drinking habit, continuos on saying only two beers a da, denies ever going into alcohol withdraws.
--- NOTE | 2020-08-25 15:42 | PC.NURSE ---
BLADDER SCAN PERFORMED BECAUSE PT ATTEMPTING TO VOIDED MULTIPLE TIMES AND URINATING VERY SMALL AMOUNT, BLADDER SCAN PERFORMED AND 999 ON THE SCAN, VERBAL ORDER FROM AARON MÁRQUEZ TO INSERT A HAYNES CATH
--- NOTE | 2020-08-25 17:00 | PM.IMHP ---
History of Present Illness Date of Service: 08/25/20 Chief Complaint: Multiple complaint (black stool, low sodium, and urinary retention History obtained from patient and ED physician. 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 He reports multiple diarrheal of black stool last night. It is associated with dull central abdominal pain. He has a history of GI bleed last year; reports an EGD was performed but no cause was identified. He denies any history of liver disease. He is on baby aspirin, no anticoagulation, no iron. He reports chills yesterday but no fevers. He has a chronic smoker's cough which is unchanged. He denies SOB or chest pain. He reports dizziness since the vomiting and black stools started. Work up in ED is noted for sodium of 118 tht has increased to 121 with IVF, INR is normal, Hgb is 13 and Hct 34. He also reports dificulty voiding for 24 hours and has a mccormack inserted and states he gets something like that once a year. Review of Systems Review of Systems: Constitutional: No Fever, + Chills ENT/Mouth: No sore throat, No Rhinorrhea, No Swallowing Difficulty Eyes: No Eye Pain, No Swelling, No Redness Cardiovascular: No Chest Pain, No SOB, No Orthopnea, No Edema Respiratory: + Cough, No Sputum, No Wheezing, No dyspnea Gastrointestinal: + Nausea, + Vomiting, + Diarrhea (loose), + abdominal Pain, No Hematochezia, + Melena Genitourinary: No Dysuria, No Urinary Frequency, No Hematuria Musculoskeletal: No joint pain, No Myalgias Skin: No Skin Lesions, No rash Neuro: No Weakness, No Numbness, + Dizziness, No Headache Psych: No Anxiety/Panic, No Depression Heme/Lymph: No Bruising, No Lymphadenopathy Endocrine: No Polyuria, No Polydipsia [facility] Medical History (Updated 08/25/20 @ 17:05 by Quinton Rush MD) Bipolar 1 disorder BPH (benign prostatic hyperplasia) COPD (chronic obstructive pulmonary disease) Degenerative joint disease of left hip Depression High cholesterol History of Guillain-[place] syndrome Hypertension Urinary retention Surgical History (Updated 08/25/20 @ 09:58 by Edita Maddox) History of nasal surgery Social History (Updated 08/25/20 @ 10:16 by WILLI Cardona) Alcohol intake: current Alcohol intake frequency: 0-2 drinks per day Alcohol type: beer Smoking Status: Current every day smoker Tobacco Type: Cigarette Cigarettes Per Day: 8 Smoked in Last 30 Days: Yes Patient Interested in Nicotine Replacement: No Use of substances other than those prescribed or required for medical reasons: No Advance Directives: No Advance Directives Information Provided: No Meds Allergies Allergy/AdvReac Type Severity Reaction Status Date / Time No Known Allergies Allergy Unverified 02/29/20 14:50 [No Known Allergies*] N.K.D.A. Allergy Unknown Uncoded 11/09/17 00:00 Active Medications: Current Medications Generic Name Dose Route Start Last Admin Trade Name Freq PRN Reason Stop Dose Admin Pharmacy Consult 1 each 08/25/20 12:03 Consult Rx Perform Med Rec MISCELLANE ONCE PRN Consult order Sodium Chloride 1 gm 08/25/20 15:00 08/25/20 14:59 Sodium Chloride Tab 1 Gm Tablet PO 1 gm TID LIDIA Administration Home Medications Medication Instructions Recorded Confirmed Last Taken Type acetaminophen 650 mg PO DAILY 04/06/20 08/25/20 Unknown History aspirin 81 mg PO DAILY 04/06/20 08/25/20 Unknown History atorvastatin 40 mg PO BEDTIME 04/06/20 08/25/20 Unknown History bupropion HCl 1 tab PO DAILY 04/06/20 08/25/20 Unknown History carboxymethylcellulose sodium 0.5 drp OPHTHALMIC (EYE) DAILY PRN 04/06/20 08/25/20 Unknown History [Refresh Tears] diazepam 1 tab PO BEDTIME PRN 04/06/20 08/25/20 Unknown History docusate sodium 1 cap PO BID 04/06/20 08/25/20 Unknown History fluticasone propionate [Flovent 2 puff INHALATION BID 04/06/20 08/25/20 Unknown History HFA] isosorbide mononitrate 60 mg PO DAILY 04/06/20 08/25/20 Unknown History loratadine 1 tab PO DAILY 04/06/20 08/25/20 Unknown History meclizine 12.5 mg PO TID 04/06/20 08/25/20 Unknown History metoprolol succinate 1 tab PO DAILY 04/06/20 08/25/20 Unknown History nitroglycerin 0.4 mg SUBLINGUAL DAILY PRN 04/06/20 08/25/20 Unknown History risperidone 6 mg PO BEDTIME 04/06/20 08/25/20 Unknown History sodium chloride 1 mg PO DAILY 04/06/20 08/25/20 Unknown History tamsulosin 1 cap PO DAILY 04/06/20 08/25/20 Unknown History albuterol sulfate 90 inh INHALATION Q4-6H PRN 08/25/20 08/25/20 Unknown History loperamide 4 mg PO DAILY PRN 08/25/20 08/25/20 Unknown History tiotropium bromide [Spiriva with 1 cap INHALATION DAILY 08/25/20 08/25/20 Unknown History HandiHaler] Physical Exam Vital Signs and Narrative: Vital Signs: Last Vital Signs Temp 98.0 F 08/25/20 10:13 Pulse 98 08/25/20 15:00 Resp 20 08/25/20 15:00 BP 181/101 H 08/25/20 15:00 Pulse Ox 95 08/25/20 15:00 Body Mass Index 21.7 Constitutional Awake and Alert, No apparent distress Neck Supple, No lymphadenopathy Cardiovascular RRR, No M/R/G, S1 S2, No S3 S4, No pedal edema Respiratory Lungs clear, No respiratory distress Gastrointestinal Non tender, Non-distended, rectal exam deffered Skin No rash Neurological Alert & oriented x3 Psychological Appropriate affect Results Labs CBC and Chem 7: 08/25/20 10:23 08/25/20 12:43 Labs: Laboratory Results - last 24 hr 08/25/20 08/25/20 08/25/20 10:23 10:23 10:23 MCV 92.2 MCH 34.2 H MCHC 37.1 H RDW 11.8 Plt Count 162 MPV 9.0 L Immature Gran % (Auto) 0.6 H Neut % (Auto) 83.3 H Lymph % (Auto) 9.0 L [place] % (Auto) 6.9 Eos % (Auto) 0.1 Baso % (Auto) 0.1 Lymph # (Auto) 1.0 L [place] # (Auto) 0.8 Eos # (Auto) 0.0 Baso # (Auto) 0.0 Abs Immat Gran (auto) 0.07 H Absolute Neuts (auto) 9.1 H Absolute Nucleated RBC 0.000 Nucleated RBC % (auto) 0.0 PT 13.5 H INR 1.1 APTT 35.5 Anion Gap 11 L Estim Creat Clear Calc 98.7 Estimated GFR > 60 Random Glucose 102 Calcium 8.2 L D Magnesium 1.6 Total Bilirubin 0.8 Direct Bilirubin 0.5 AST 22 ALT 12 Alkaline Phosphatase 67 Troponin I High Sens Total Protein 6.0 L Albumin 3.5 Urine Color Urine Appearance Urine pH Ur Specific [place] Urine Protein Urine Glucose (UA) Urine Ketones Urine Blood Urine Nitrite Ur Leukocyte Esterase Urine Osmolality Ur Random Sodium Stool Occult Blood Ethyl Alcohol COVID-19 (GARRETT) COVID-19 bContext Com Blood Type Antibody Screen 08/25/20 08/25/20 08/25/20 10:23 10:23 10:23 MCV MCH MCHC RDW Plt Count MPV Immature Gran % (Auto) Neut % (Auto) Lymph % (Auto) [place] % (Auto) Eos % (Auto) Baso % (Auto) Lymph # (Auto) [place] # (Auto) Eos # (Auto) Baso # (Auto) Abs Immat Gran (auto) Absolute Neuts (auto) Absolute Nucleated RBC Nucleated RBC % (auto) PT INR APTT Anion Gap Estim Creat Clear Calc Estimated GFR Random Glucose Calcium Magnesium Total Bilirubin Direct Bilirubin AST ALT Alkaline Phosphatase Troponin I High Sens 9.8 Total Protein Albumin Urine Color Urine Appearance Urine pH Ur Specific [place] Urine Protein Urine Glucose (UA) Urine Ketones Urine Blood Urine Nitrite Ur Leukocyte Esterase Urine Osmolality Ur Random Sodium Stool Occult Blood Ethyl Alcohol < 10 COVID-19 (GARRETT) Negative COVID-19 bContext Com See Note Blood Type Antibody Screen 08/25/20 08/25/20 08/25/20 10:23 11:30 11:30 MCV MCH MCHC RDW Plt Count MPV Immature Gran % (Auto) Neut % (Auto) Lymph % (Auto) [place] % (Auto) Eos % (Auto) Baso % (Auto) Lymph # (Auto) [place] # (Auto) Eos # (Auto) Baso # (Auto) Abs Immat Gran (auto) Absolute Neuts (auto) Absolute Nucleated RBC Nucleated RBC % (auto) PT INR APTT Anion Gap Estim Creat Clear Calc Estimated GFR Random Glucose Calcium Magnesium Total Bilirubin Direct Bilirubin AST ALT Alkaline Phosphatase Troponin I High Sens Total Protein Albumin Urine Color YELLOW Urine Appearance CLEAR Urine pH 7.0 Ur Specific [place] <= 1.005 Urine Protein NEG Urine Glucose (UA) NEG Urine Ketones NEG Urine Blood NEG Urine Nitrite NEG Ur Leukocyte Esterase NEG Urine Osmolality Ur Random Sodium Stool Occult Blood NEG Ethyl Alcohol COVID-19 (GARRETT) COVID-19 bContext Com Blood Type O Positive Antibody Screen NEGATIVE 08/25/20 08/25/20 11:30 11:30 MCV MCH MCHC RDW Plt Count MPV Immature Gran % (Auto) Neut % (Auto) Lymph % (Auto) [place] % (Auto) Eos % (Auto) Baso % (Auto) Lymph # (Auto) [place] # (Auto) Eos # (Auto) Baso # (Auto) Abs Immat Gran (auto) Absolute Neuts (auto) Absolute Nucleated RBC Nucleated RBC % (auto) PT INR APTT Anion Gap Estim Creat Clear Calc Estimated GFR Random Glucose Calcium Magnesium Total Bilirubin Direct Bilirubin AST ALT Alkaline Phosphatase Troponin I High Sens Total Protein Albumin Urine Color Urine Appearance Urine pH Ur Specific [place] Urine Protein Urine Glucose (UA) Urine Ketones Urine Blood Urine Nitrite Ur Leukocyte Esterase Urine Osmolality 128 L Ur Random Sodium < 20.0 Stool Occult Blood Ethyl Alcohol COVID-19 (GARRETT) COVID-19 bContext Com Blood Type Antibody Screen Assessment and Plan (1) Chronic hyponatremia: Status: Acute (2) Hyponatremia: Status: Acute (3) Anemia: Qualifiers: Anemia type: unspecified type Qualified Code(s): D64.9 - Anemia, unspecified Status: Acute (4) SIADH (syndrome of inappropriate ADH production): Status: Acute 70 year old male with history of COPD on PRN O2, daily etoh use, HTN, HLD, bipolar disorder, hx hyponatremia 2/2 SIADH on salt tabs, hx CAP, 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 Hyponatremia--acute on chronic due to SIADH and possible agravated by beer -Fluid restriction -Continue salt tablet (he takes at home) -Frequent sodium levels 2. Black stool, coffee ground emesis--no signficant shift in Hgb/Hct -Occult blood is negative -Monitor H/H -IV PPI -GI consult in the morning 3. Urinary retention--likely from his BPH, has mccormack -Flomax 4. Biplary--Bupropion 5. Tobacco use disorder--Nicotine patch, cessation discussed 6. Chornic alcohol use--moderate risk for withdrawal--CIWA, thiamine, folate 7. COPD--no exacerbation, continue inhalers 8. DVT prophy compresssion device, no heparin/lovenox d/t potential gib
--- NOTE | 2020-08-25 18:25 | PC.NURSE ---
HAYNES CATH DRAINING WELL, YELLOW URINE ABOUT 2500 AT THIS TIME
--- NOTE | 2020-08-25 19:55 | PC.NURSE ---
attempted to give report rn unavailable.
--- NOTE | 2020-08-25 19:56 | PC.NURSE ---
call made to hospitalist regarding bp. no answer.
--- NOTE | 2020-08-25 20:25 | PC.NURSE ---
report given to aisha barry. no questions.
[2020-08-25] MEDS: PHENobarbitaL sodium 130 MG/ML VIAL 195 MG IM (20:37)
--- NOTE | 2020-08-25 21:08 | PC.NURSE ---
hospitalist contacted for bp. plan to medicate with hydralizine.
[2020-08-25] MEDS: Docusate Sodium 100 MG CAPSULE PO (21:19)
[2020-08-25] MEDS: Atorvastatin Calcium 40 MG TABLET PO (21:19)
[2020-08-25] MEDS: hydrALAZINE HCl 20 MG/ML VIAL 5 MG IVPUSH (21:20)
[2020-08-25] MEDS: risperiDONE 3 MG TABLET 6 MG PO (21:28)
[2020-08-25 21:30] LABS: Sodium 127 mmol/L (135-145)
[2020-08-25] MEDS: ondansetron HCL 4 MG/2 ML VIAL IVPUSH (21:37)
[2020-08-25] MEDS: 0.9 % Sodium Chloride Flush 3 ML SYRINGE IVFLUSH (22:48)
[2020-08-26] VITALS (7 sets, daily range): BP systolic 140–167; BP diastolic 76–89; PULSE 71–102; RESP 18–20; TEMP 36.4–36.8; O2SAT 94–98
[2020-08-26] MEDS: PHENobarbitaL sodium 130 MG/ML VIAL 147 MG IM ×2 (01:08→03:59)
[2020-08-26 06:21] LABS: Anion Gap 13 (12-20); Blood Urea Nitrogen 6 mg/dL (9-16); Calcium 8.4 mg/dL (8.4-10.2); Carbon Dioxide 28 mmol/L (22-29); Chloride 91 mmol/L (96-108); Creatinine Clr Calc Pharmacy 92.7; Estimated Glomerular Filt Rate > 60; Glucose Random 109 mg/dL (60-115); Magnesium 1.9 mg/dL (1.6-2.6); Potassium 3.6 mmol/L (3.3-5.1); Sodium 128 mmol/L (135-145)
[2020-08-26 08:56] LABS: MANUAL DIFF FLAG NO
[2020-08-26 09:06] LABS: Basophils Percent Auto 0.1 % (0-2); Hematocrit 39.9 % (42-52); Hemoglobin 14.1 g/dl (14.0-18.0); Imm Gran Abs Auto 0.04 X10*3/uL (0.00-0.03); Imm Gran Pct Auto 0.4 % (0.0-0.4); Lymphocytes Absolute Auto 1.5 X10*3/uL (1.2-4.9); Mean Corpuscular HGB Conc 35.3 g/dl (31.0-36.0); Mean Corpuscular Hemoglobin 33.4 pg (27.0-33.0); Mean Corpuscular Volume 94.5 fL (80-98); Mean Platelet Volume 9.2 fL (9.4-12.4); Monocytes Absolute Auto 0.8 X10*3/uL (0.1-1.2); Monocytes Percent Auto 8.1 % (2-11); Neutrophils Absolute Auto 7.1 X10*3/uL (2.0-8.3); Neutrophils Percent Auto 75.4 % (45-73); Platelet Count 197 X10*3/uL (160-400); Red Blood Count 4.22 X10*6/uL (4.60-5.80); Red Cell Distribution Width 12.2 % (11.0-16.0); White Blood Count 9.4 X10*3/uL (4.8-10.8)
--- NOTE | 2020-08-26 09:16 | P.CNGI_ITS ---
History of Present Illness Data of Consult Service Date: 08/27/20 Requesting physician: [facility] Primary Care Provider: Unknown Physician HPI Reason for consult: anemia 70 year old male with history of COPD on PRN O2, daily etoh use, HTN, HLD, bipolar disorder, hx hyponatremia 2/2 SIADH on salt tabs, hx CAP, history of Guillain-[place] in 2011 & active smoker who I am seeing for assessment of anemia, He presented with recurrent epsiodes of melenic stools as well as coffee ground emesis and dull upper abdominal pain. He is on aspirin and also said he was taking ibuprofen daily for few months but couldnlt tell me why. He felt better in hospital and said pain and nausea had resolved. He says his weight and appetite have been stable. Denies rectal bleeding, dysphagia or refl ux sx. On admission he was hyponatremic which improved with fluids and HGB has been stable around 13-14 g/dl. No EGD on file. colonoscopy 2014 with diverticulosis and int hemorrhoids by Bennie. Review of Systems Review of Systems: Constitutional: No Fever, + Chills ENT/Mouth: No sore throat, No Rhinorrhea, No Swallowing Difficulty Eyes: No Eye Pain, No Swelling, No Redness Cardiovascular: No Chest Pain, No SOB, No Orthopnea, No Edema Respiratory: + Cough, No Sputum, No Wheezing, No dyspnea Gastrointestinal: + Nausea, + Vomiting, + Diarrhea (loose), + abdominal Pain, No Hematochezia, + Melena Genitourinary: No Dysuria, No Urinary Frequency, No Hematuria Musculoskeletal: No joint pain, No Myalgias Skin: No Skin Lesions, No rash Neuro: No Weakness, No Numbness, + Dizziness, No Headache Psych: No Anxiety/Panic, No Depression Heme/Lymph: No Bruising, No Lymphadenopathy Endocrine: No Polyuria, No Polydipsia PMFSH Past Medical History Medical History (Updated 08/27/20 @ 09:42 by Pavel Valiente MD) Bipolar 1 disorder BPH (benign prostatic hyperplasia) COPD (chronic obstructive pulmonary disease) Degenerative joint disease of left hip Depression High cholesterol History of Guillain-[place] syndrome Hypertension Urinary retention Surgical History Surgical History (Updated 08/25/20 @ 09:58 by Edita Maddox) History of nasal surgery Social History Social History (Updated 08/25/20 @ 10:16 by WILLI Cardona) Household Members: None Housing: Apartment Do you presently have visiting nurse or other home services: Yes Alcohol intake: current Alcohol intake frequency: 0-2 drinks per day Alcohol type: beer Smoking Status: Current every day smoker Tobacco Type: Cigarette Cigarettes Per Day: 1 Smoked in Last 30 Days: Yes Patient Interested in Nicotine Replacement: No Patient Given Instructions on How to Stop Smoking: No (refused) Use of substances other than those prescribed or required for medical reasons: No Currently Displaying Signs/Symptoms of Drug Intoxication Withdrawal: No Have you been hit, kicked, punched, or otherwise hurt by someone within the past year? If so, by whom?: No Do you feel safe in your current relationship?: No Current Relationship Is there a partner from a previous relationship who is making you feel unsafe now?: No Are you made to feel afraid or neglected: No Advance Directives: No Advance Directives Information Provided: No Do you have thoughts of harming others: None Do you have a plan to hurt others: No Plan Recently lost weight without trying: Yes service: No Current occupational status: retired [employer] Allergies Allergy/AdvReac Type Severity Reaction Status Date / Time No Known Allergies Allergy Unverified 02/29/20 14:50 [No Known Allergies*] N.K.D.A. Allergy Unknown Uncoded 11/09/17 00:00 Active Medications: Current Medications Generic Name Dose Route Start Last Admin Trade Name Freq PRN Reason Stop Dose Admin Acetaminophen 650 mg 08/26/20 09:00 Acetaminophen 325 Mg Tablet PO DAILY LIDIA Albuterol Sulfate 2 puff 08/25/20 20:22 Albuterol Sulfate 90 Mcg 8 Gm Inhaler INHALE Q4H PRN Wheezing Artificial Tears 1 drop 08/25/20 20:27 Artificial Tears 15 Ml Drops EYE-BOTH DAILY PRN Dry Eyes Aspirin 81 mg 08/26/20 09:00 Aspirin Enteric Coated 81 Mg Tablet.Dr PO DAILY LIDIA Atorvastatin Calcium 40 mg 08/25/20 21:00 08/25/20 21:19 Atorvastatin Calcium 40 Mg Tablet PO 40 mg BEDTIME LIDIA Administration Bupropion HCl 150 mg 08/26/20 09:00 Bupropion Hcl Xl 150 Mg Tab.Er.24h PO DAILY LIDIA Diazepam 5 mg 08/25/20 20:22 Diazepam 5 Mg Tablet PO BEDTIME PRN Anxiety Docusate Sodium 100 mg 08/25/20 21:00 08/25/20 21:19 Docusate Sodium 100 Mg Capsule PO 100 mg BID [facility] Administration Fluticasone Propionate 2 puff 08/26/20 08:00 08/26/20 07:31 Fluticasone Propionate 250 Mcg Blst.W.Dev INHALE Not Given RBID [facility] Folic Acid 1 mg 08/26/20 09:00 Folic Acid 1 Mg Tablet PO 08/28/20 09:01 DAILY [facility] Isosorbide Mononitrate 60 mg 08/26/20 09:00 Isosorbide Mononitrate 60 Mg Tab.Er.24h PO DAILY [facility] Protocol Loperamide HCl 4 mg 08/25/20 20:22 Loperamide Hcl 2 Mg Capsule PO DAILY PRN Diarrhea Meclizine HCl 12.5 mg 08/25/20 21:00 08/25/20 22:47 Meclizine Hcl 12.5 Mg Tablet PO Not Given TID [facility] Medication 1 each 08/26/20 09:00 No Benzodiazepines MISCELLANE DAILY [facility] Metoprolol Succinate 50 mg 08/26/20 09:00 Metoprolol Succinate Er 50 Mg Tab.Er.24h PO DAILY [facility] Protocol Nitroglycerin 0.4 mg 08/25/20 20:22 Nitroglycerin 0.4 Mg Tab.Subl SUBLINGUAL DAILY PRN Chest Pain Ondansetron HCl 4 mg 08/25/20 17:38 08/25/20 21:37 Ondansetron Hcl 4 Mg/2 Ml Vial IVPUSH 4 mg Q8H PRN Administration Nausea and Vomiting Pantoprazole Sodium 40 mg 08/25/20 21:00 08/25/20 21:20 Pantoprazole Sodium 40 Mg/10 Ml Vial IVPUSH 40 mg BID [facility] Administration Pharmacy Consult 1 each 08/25/20 12:03 Consult Rx Perform Med Rec MISCELLANE ONCE PRN Consult order Phenobarbital 45 mg 08/26/20 09:00 Phenobarbital 15 Mg Tablet PO 08/27/20 21:01 BID [facility] Phenobarbital 30 mg 08/28/20 09:00 Phenobarbital 30 Mg Tablet PO 08/29/20 21:01 BID [facility] Phenobarbital 15 mg 08/30/20 09:00 Phenobarbital 15 Mg Tablet PO 08/31/20 09:01 DAILY [facility] Risperidone 6 mg 08/25/20 21:00 08/25/20 21:28 Risperidone 3 Mg Tablet PO 6 mg BEDTIME [facility] Administration Sodium Chloride 1 gm 08/25/20 15:00 08/25/20 21:19 Sodium Chloride Tab 1 Gm Tablet PO 1 gm TID [facility] Administration Sodium Chloride 3 ml 08/26/20 00:00 08/25/20 22:48 0.9 % Sodium Chloride Flush 3 Ml Syringe IVFLUSH 3 ml QSHIFT [facility] Administration Sodium Chloride 1 gm 08/26/20 09:00 Sodium Chloride Tab 1 Gm Tablet PO DAILY [facility] Tamsulosin HCl 0.4 mg 08/26/20 09:00 Tamsulosin Hcl 0.4 Mg Capsule PO DAILY [facility] Thiamine HCl 100 mg 08/26/20 09:00 Thiamine Hcl 100 Mg Tablet PO 08/28/20 09:01 DAILY [facility] Tiotropium [place] 1 puff 08/26/20 08:00 08/26/20 07:32 Tiotropium [place] 18 Mcg Cap.W.Dev INHALE Not Given RDAILY [facility] Home Medications Medication Instructions Recorded Confirmed Last Taken Type acetaminophen 650 mg PO DAILY 04/06/20 08/25/20 Unknown History aspirin 81 mg PO DAILY 04/06/20 08/25/20 Unknown History atorvastatin 40 mg PO BEDTIME 04/06/20 08/25/20 Unknown History bupropion HCl 1 tab PO DAILY 04/06/20 08/25/20 Unknown History carboxymethylcellulose sodium 0.5 drp OPHTHALMIC (EYE) DAILY PRN 04/06/20 08/25/20 Unknown History [Refresh Tears] diazepam 1 tab PO BEDTIME PRN 04/06/20 08/25/20 Unknown History docusate sodium 1 cap PO BID 04/06/20 08/25/20 Unknown History fluticasone propionate [Flovent 2 puff INHALATION BID 04/06/20 08/25/20 Unknown History HFA] isosorbide mononitrate 60 mg PO DAILY 04/06/20 08/25/20 Unknown History loratadine 1 tab PO DAILY 04/06/20 08/25/20 Unknown History meclizine 12.5 mg PO TID 04/06/20 08/25/20 Unknown History metoprolol succinate 1 tab PO DAILY 04/06/20 08/25/20 Unknown History nitroglycerin 0.4 mg SUBLINGUAL DAILY PRN 04/06/20 08/25/20 Unknown History risperidone 6 mg PO BEDTIME 04/06/20 08/25/20 Unknown History sodium chloride 1 mg PO DAILY 04/06/20 08/25/20 Unknown History tamsulosin 1 cap PO DAILY 04/06/20 08/25/20 Unknown History albuterol sulfate 90 inh INHALATION Q4-6H PRN 08/25/20 08/25/20 Unknown History loperamide 4 mg PO DAILY PRN 08/25/20 08/25/20 Unknown History tiotropium bromide [Spiriva with 1 cap INHALATION DAILY 08/25/20 08/25/20 Unknown History HandiHaler] Physical Exam Vital Signs: Vital Signs: Last Vital Signs Temp 98.3 F 08/26/20 08:00 Pulse 88 08/26/20 08:00 Resp 20 08/26/20 08:00 BP 155/89 H 08/26/20 08:00 Pulse Ox 98 08/26/20 08:00 Body Mass Index 21.7 Const: General: comfortable Eyes: General: appearance normal, both eyes and all related structures Resp: Effort & Inspection: normal respiratory effort and able to speak in complete sentences Auscultation: clear to auscultation bilaterally and no wheezes Cardio: Jugular venous distension: no JVD Rate: regular rate Rhythm: regular rhythm GI: Inspection: Yes normal to inspection Palpation (GI): Soft to palpation, nontender and no guarding Percussion: Yes normal to percussion Auscultation: normal bowel sounds Skin: General skin exam: no rashes or lesions noted Neuro: General: moves all extremities Extrem: General: Yes normal to inspection Psych: Appearance: grossly normal Results Labs CBC & Chem 7: 08/26/20 08:37 08/27/20 05:17 Labs: Short CBC 08/25/20 08/26/20 Range/Units 10:23 05:10 WBC 11.0 H Cancelled (4.8-10.8) X10*3/uL Hgb 13.2 L Cancelled (14.0-18.0) g/dl Hct 35.6 L Cancelled (42-52) % Plt Count 162 Cancelled (160-400) X10*3/uL BMP 08/25/20 08/25/20 08/25/20 10:23 12:43 20:58 Sodium 118 L* 121 L 127 L Potassium 3.8 Chloride 83 L Carbon Dioxide 28 BUN 6 L Creatinine 0.62 Calcium 8.2 L D 08/26/20 05:10 Sodium 128 L Potassium 3.6 Chloride 91 L Carbon Dioxide 28 BUN 6 L Creatinine 0.66 Calcium 8.4 Liver Function 08/25/20 Range/Units 10:23 Total Bilirubin 0.8 (0.0-1.0) mg/dL Direct Bilirubin 0.5 (0.0-0.5) mg/dL AST 22 (5-37) U/L ALT 12 (0-40) U/L Alkaline Phosphatase 67 (39-117) U/L Albumin 3.5 (3.5-5.0) g/dL Urine 08/25/20 Range/Units 11:30 Urine Color YELLOW Urine Appearance CLEAR Urine pH 7.0 (5.0-8.0) Ur Specific [place] <= 1.005 (1.005-1.025) Urine Protein NEG (NEG-TRACE) MG/DL Urine Glucose (UA) NEG (NEG) MG/DL Assessment and Plan (1) Coffee ground emesis: Status: Acute 1/ Coffee ground emesis and possible melena with stable HGB, may have esophagitis or gastritis from NSAID use 2/ hyponatremia possibly from meds and GI fluid losses PLAN: 1/ EGD for further assessment 2/ can use PPI e.g pantoprazole 40 mg OD for the meantime
[2020-08-26] MEDS: 0.9 % Sodium Chloride Flush 3 ML SYRINGE IVFLUSH ×2 (09:28→16:32)
[2020-08-26] MEDS: PHENobarbitaL 15 MG TABLET 45 MG PO ×2 (09:28→21:47)
[2020-08-26] MEDS: buPROPion HCl XL 150 MG TAB.ER.24H PO (09:29)
[2020-08-26] MEDS: Acetaminophen 325 MG TABLET 650 MG PO (09:30)
[2020-08-26] MEDS: Isosorbide Mononitrate 60 MG TAB.ER.24H PO (09:30)
[2020-08-26] MEDS: Meclizine HCl 12.5 MG TABLET PO ×3 (09:30→21:47)
[2020-08-26] MEDS: Docusate Sodium 100 MG CAPSULE PO ×2 (09:31→21:47)
[2020-08-26] MEDS: Metoprolol Succinate ER 50 MG TAB.ER.24H PO (09:31)
[2020-08-26] MEDS: Tamsulosin HCL 0.4 MG CAPSULE PO (09:31)
[2020-08-26] MEDS: Folic Acid 1 MG TABLET PO (09:32)
[2020-08-26] MEDS: Aspirin Enteric Coated 81 MG TABLET.DR PO (09:32)
[2020-08-26] MEDS: Thiamine HCL 100 MG TABLET PO (09:32)
[2020-08-26] MEDS: Sodium Chloride Tab 1 GM TABLET PO ×3 (09:33→21:47)
--- NOTE | 2020-08-26 10:09 | MHC.CM.PN ---
pt lives alone in [facility] [place]. 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 he also says he has a visiting nurse for which he cannot remember the name of the agency. pt also has a son that live in the area that visits and helps him out. he uses a cane c ambulation and is requesting to have help c transportation home at dc. pt stated he does not want to to to a snf. dc plan is home c all his prior svcs. cm to cont. to follow.
[2020-08-26] MEDS: Pantoprazole Sodium 40 MG/10 ML VIAL IVPUSH ×2 (11:45→21:47)
--- NOTE | 2020-08-26 11:49 | PC.NURSE ---
Dr. Perez and Dr. North up to see patient. Dr. Perez verbalized concern about Na level rising to rapidly. Dr. North aware and will dc sodium tabs PO. Stat lytes ordered (phlebotomy called). Initially thought we should hand D5W 200cc/hr for 2 hours but given that he has only had 400cc output in mccormack since 7am, he is ok holding off on IVF until lytes results come back to reassess. Both doctors in agreement. Patient aware. Mds also aware that urine was red tinged this morning, but starting to clear. Draining without obstruction.
--- NOTE | 2020-08-26 12:04 | P.CONNP_ITS ---
History of Present Illness Reason for Consult Consult date: 08/26/20 Reason for consult: hypoNa Chief Complaint Chief complaint: Hyponatremia History of Present Illness Narrative: Ask to see PT re Marci ( 118 on adm at 10 am yest) on backdrop of multiple med probs including a dx of SIADH and maintained on Salt tabs. C/O diarrhea and abd pain and urinary retention on adm and mccormack placed.. Overnight his SNa incr to 127 at 11 pm and this am at 5 am was 128. Presnetly adam 350 ml of urine in mccormack sincr 7 am. No documentation of marked UOP from ER or overnite records. 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 & active smoker Review of Systems Review of Systems Constitutional: No Fever, + Chills ENT/Mouth: No sore throat, No Rhinorrhea, No Swallowing Difficulty Eyes: No Eye Pain, No Swelling, No Redness Cardiovascular: No Chest Pain, No SOB, No Orthopnea, No Edema Respiratory: + Cough, No Sputum, No Wheezing, No dyspnea Gastrointestinal: + Nausea, + Vomiting, + Diarrhea (loose), + abdominal Pain, No Hematochezia, + Melena Genitourinary: No Dysuria, No Urinary Frequency, No Hematuria Musculoskeletal: No joint pain, No Myalgias Skin: No Skin Lesions, No rash Neuro: No Weakness, No Numbness, + Dizziness, No Headache Psych: No Anxiety/Panic, No Depression Heme/Lymph: No Bruising, No Lymphadenopathy Endocrine: No Polyuria, No Polydipsia [facility] Past Medical History Medical History (Updated 08/25/20 @ 17:05 by Quinton Rush MD) Bipolar 1 disorder BPH (benign prostatic hyperplasia) COPD (chronic obstructive pulmonary disease) Degenerative joint disease of left hip Depression High cholesterol History of Guillain-[place] syndrome Hypertension Urinary retention Surgical History Surgical History (Updated 08/25/20 @ 09:58 by Edita Maddox) History of nasal surgery Social History Social History (Updated 08/25/20 @ 10:16 by WILLI Cardona) Household Members: None Housing: Apartment Do you presently have visiting nurse or other home services: Yes Alcohol intake: current Alcohol intake frequency: 0-2 drinks per day Alcohol type: beer Smoking Status: Current every day smoker Tobacco Type: Cigarette Cigarettes Per Day: 1 Smoked in Last 30 Days: Yes Patient Interested in Nicotine Replacement: No Patient Given Instructions on How to Stop Smoking: No (refused) Use of substances other than those prescribed or required for medical reasons: No Currently Displaying Signs/Symptoms of Drug Intoxication Withdrawal: No Have you been hit, kicked, punched, or otherwise hurt by someone within the past year? If so, by whom?: No Do you feel safe in your current relationship?: No Current Relationship Is there a partner from a previous relationship who is making you feel unsafe now?: No Are you made to feel afraid or neglected: No Advance Directives: No Advance Directives Information Provided: No Do you have thoughts of harming others: None Do you have a plan to hurt others: No Plan Recently lost weight without trying: Yes service: No Current occupational status: retired [employer] Allergies Allergy/AdvReac Type Severity Reaction Status Date / Time No Known Allergies Allergy Unverified 02/29/20 14:50 [No Known Allergies*] N.K.D.A. Allergy Unknown Uncoded 11/09/17 00:00 Active Medications: Current Medications Generic Name Dose Route Start Last Admin Trade Name Freq PRN Reason Stop Dose Admin Acetaminophen 650 mg 08/26/20 09:00 08/26/20 09:30 Acetaminophen 325 Mg Tablet PO 650 mg DAILY [facility] Administration Albuterol Sulfate 2 puff 08/25/20 20:22 Albuterol Sulfate 90 Mcg 8 Gm Inhaler INHALE Q4H PRN Wheezing Artificial Tears 1 drop 08/25/20 20:27 Artificial Tears 15 Ml Drops EYE-BOTH DAILY PRN Dry Eyes Aspirin 81 mg 08/26/20 09:00 08/26/20 09:32 Aspirin Enteric Coated 81 Mg Tablet. PO 81 mg DAILY [facility] Administration Atorvastatin Calcium 40 mg 08/25/20 21:00 08/25/20 21:19 Atorvastatin Calcium 40 Mg Tablet PO 40 mg BEDTIME [facility] Administration Bupropion HCl 150 mg 08/26/20 09:00 08/26/20 09:29 Bupropion Hcl Xl 150 Mg Tab.Er.24h PO 150 mg DAILY [facility] Administration Diazepam 5 mg 08/25/20 20:22 Diazepam 5 Mg Tablet PO BEDTIME PRN Anxiety Docusate Sodium 100 mg 08/25/20 21:00 08/26/20 09:31 Docusate Sodium 100 Mg Capsule PO 100 mg BID [facility] Administration Fluticasone Propionate 2 puff 08/26/20 08:00 08/26/20 07:31 Fluticasone Propionate 250 Mcg Blst.W.Dev INHALE Not Given RBID [facility] Folic Acid 1 mg 08/26/20 09:00 08/26/20 09:32 Folic Acid 1 Mg Tablet PO 08/28/20 09:01 1 mg DAILY [facility] Administration Dextrose 1,000 mls @ 200 mls/hr 08/26/20 11:15 D5w IVCONT 08/26/20 13:14 .Q5H [facility] Isosorbide Mononitrate 60 mg 08/26/20 09:00 08/26/20 09:30 Isosorbide Mononitrate 60 Mg Tab.Er.24h PO 60 mg DAILY [facility] Administration Protocol Loperamide HCl 4 mg 08/25/20 20:22 Loperamide Hcl 2 Mg Capsule PO DAILY PRN Diarrhea Meclizine HCl 12.5 mg 08/25/20 21:00 08/26/20 09:30 Meclizine Hcl 12.5 Mg Tablet PO 12.5 mg TID [facility] Administration Medication 1 each 08/26/20 09:00 No Benzodiazepines MISCELLANE DAILY [facility] Metoprolol Succinate 50 mg 08/26/20 09:00 08/26/20 09:31 Metoprolol Succinate Er 50 Mg Tab.Er.24h PO 50 mg DAILY [facility] Administration Protocol Nitroglycerin 0.4 mg 08/25/20 20:22 Nitroglycerin 0.4 Mg Tab.Subl SUBLINGUAL DAILY PRN Chest Pain Ondansetron HCl 4 mg 08/25/20 17:38 08/25/20 21:37 Ondansetron Hcl 4 Mg/2 Ml Vial IVPUSH 4 mg Q8H PRN Administration Nausea and Vomiting Pantoprazole Sodium 40 mg 08/25/20 21:00 08/26/20 11:45 Pantoprazole Sodium 40 Mg/10 Ml Vial IVPUSH 40 mg BID [facility] Administration Pharmacy Consult 1 each 08/25/20 12:03 Consult Rx Perform Med Rec MISCELLANE ONCE PRN Consult order Phenobarbital 45 mg 08/26/20 09:00 08/26/20 09:28 Phenobarbital 15 Mg Tablet PO 08/27/20 21:01 45 mg BID [facility] Administration Phenobarbital 30 mg 08/28/20 09:00 Phenobarbital 30 Mg Tablet PO 08/29/20 21:01 BID [facility] Phenobarbital 15 mg 08/30/20 09:00 Phenobarbital 15 Mg Tablet PO 08/31/20 09:01 DAILY [facility] Risperidone 6 mg 08/25/20 21:00 08/25/20 21:28 Risperidone 3 Mg Tablet PO 6 mg BEDTIME [facility] Administration Sodium Chloride 3 ml 08/26/20 00:00 08/26/20 09:28 0.9 % Sodium Chloride Flush 3 Ml Syringe IVFLUSH 3 ml QSHIFT [facility] Administration Tamsulosin HCl 0.4 mg 08/26/20 09:00 08/26/20 09:31 Tamsulosin Hcl 0.4 Mg Capsule PO 0.4 mg DAILY [facility] Administration Thiamine HCl 100 mg 08/26/20 09:00 08/26/20 09:32 Thiamine Hcl 100 Mg Tablet PO 08/28/20 09:01 100 mg DAILY [facility] Administration Tiotropium [place] 1 puff 08/26/20 08:00 08/26/20 07:32 Tiotropium [place] 18 Mcg Cap.W.Dev INHALE Not Given RDAILY [facility] Home Medications Medication Instructions Recorded Confirmed Last Taken Type acetaminophen 650 mg PO DAILY 04/06/20 08/25/20 Unknown History aspirin 81 mg PO DAILY 04/06/20 08/25/20 Unknown History atorvastatin 40 mg PO BEDTIME 04/06/20 08/25/20 Unknown History bupropion HCl 1 tab PO DAILY 04/06/20 08/25/20 Unknown History carboxymethylcellulose sodium 0.5 drp OPHTHALMIC (EYE) DAILY PRN 04/06/20 08/25/20 Unknown History [Refresh Tears] diazepam 1 tab PO BEDTIME PRN 04/06/20 08/25/20 Unknown History docusate sodium 1 cap PO BID 04/06/20 08/25/20 Unknown History fluticasone propionate [Flovent 2 puff INHALATION BID 04/06/20 08/25/20 Unknown History HFA] isosorbide mononitrate 60 mg PO DAILY 04/06/20 08/25/20 Unknown History loratadine 1 tab PO DAILY 04/06/20 08/25/20 Unknown History meclizine 12.5 mg PO TID 04/06/20 08/25/20 Unknown History metoprolol succinate 1 tab PO DAILY 04/06/20 08/25/20 Unknown History nitroglycerin 0.4 mg SUBLINGUAL DAILY PRN 04/06/20 08/25/20 Unknown History risperidone 6 mg PO BEDTIME 04/06/20 08/25/20 Unknown History sodium chloride 1 mg PO DAILY 04/06/20 08/25/20 Unknown History tamsulosin 1 cap PO DAILY 04/06/20 08/25/20 Unknown History albuterol sulfate 90 inh INHALATION Q4-6H PRN 08/25/20 08/25/20 Unknown History loperamide 4 mg PO DAILY PRN 08/25/20 08/25/20 Unknown History tiotropium bromide [Spiriva with 1 cap INHALATION DAILY 08/25/20 08/25/20 Unknown History HandiHaler] Physical Exam Vital Signs: Last Vital Signs Temp 98.3 F 08/26/20 08:00 Pulse 88 08/26/20 09:31 Resp 20 08/26/20 08:00 BP 155/89 H 08/26/20 09:31 Pulse Ox 98 08/26/20 08:00 Body Mass Index 21.7 Results Lab Results Result Diagrams: 08/26/20 08:37 08/26/20 05:10 Lab results: Chemistry 08/25/20 08/25/20 08/25/20 10:23 12:43 20:58 Sodium 118 L* 121 L 127 L Potassium 3.8 Carbon Dioxide 28 BUN 6 L Creatinine 0.62 Calcium 8.2 L D 08/26/20 05:10 Sodium 128 L Potassium 3.6 Carbon Dioxide 28 BUN 6 L Creatinine 0.66 Calcium 8.4 Hematology 08/25/20 08/26/20 08/26/20 10:23 05:10 08:37 WBC 11.0 H Cancelled 9.4 Hgb 13.2 L Cancelled 14.1 Plt Count 162 Cancelled 197 Urinalysis 08/25/20 11:30 Urine Color YELLOW Urine Appearance CLEAR Urine pH 7.0 Ur Specific [place] <= 1.005 Urine Protein NEG Urine Glucose (UA) NEG Urine Ketones NEG Urine Blood NEG Urine Nitrite NEG Ur Leukocyte Esterase NEG Urine Studies 08/25/20 11:30 Urine Osmolality 128 L Assessment and Plan (1) Chronic hyponatremia: Status: Acute (2) Hyponatremia: Status: Acute (3) Anemia: Qualifiers: Anemia type: unspecified type Qualified Code(s): D64.9 - Anemia, unspecified Status: Acute (4) SIADH (syndrome of inappropriate ADH production): Status: Acute 70 year old male with history of COPD on PRN O2, daily etoh use, HTN, HLD, bipolar disorder, hx hyponatremia 2/2 SIADH on salt tabs, hx CAP, history of Guillain-[place] in 2012 & active smoker who presents to the ED with 1 day history of multiple black loose stools and 4 episodes of dark brown emesis and found to have severe hypOnatremia and urinary retention Sna has increased 118 crispin 128 as of 5 am but interestingly from 10 am SNa 127 it only incr to 128 at 5 am so the rate of SNa incr has markedly decreased btn 10 pm and 5 am 1. Euvolemic HypoNa: suspect he has SIADH witrh a reset osmostat physiology as that would explan the the low Urine osm and relative rapid correction up to 127 and tehn the lack of furhter correction of the ensuing 7 hours ( ie ADH turned off when the serum osm reaches a certain threshold..hence the name reset osmostat) REC: stat lytes now as may need to goive D5W to avoid too rapid a correction as the goal is 8 meq/24 hrs toa avoif the rsik of CPM; recheck Urien studies and UAL; hold ssalt tabs ( I stopped them) Will check TSSH and am cortisol level; will follow nadine team closely with serial SNa levels
[2020-08-26 12:36] LABS: Anion Gap 10 (12-20); Carbon Dioxide 29 mmol/L (22-29); Chloride 89 mmol/L (96-108); Potassium 3.6 mmol/L (3.3-5.1); Sodium 124 mmol/L (135-145)
[2020-08-26 12:46] LABS: Uric Acid 3.2 mg/dL (3.4-7.0)
--- NOTE | 2020-08-26 13:05 | HO.PM.IMPN ---
Subjective Subjective Date of Service: 08/26/20 Interval History: no abd pain Keyes draining blood tinged urine no reported blood in stool Physical Exam Vital Signs: Vital Signs: Last Vital Signs Temp 98.3 F 08/26/20 12:00 Pulse 71 08/26/20 12:00 Resp 18 08/26/20 12:00 BP 151/86 H 08/26/20 12:00 Pulse Ox 95 08/26/20 12:00 Body Mass Index 21.7 Gen: in no acute distress HEENT: sclera anicteric, moist mucus membranes Neck: supple Lungs: clear to auscultation bilaterally Heart: regular rate and rhythm, no murmurs Abd: soft, non-tender, non-distended : Keyes with blood tinged urine Ext: no edema Skin: warm/well-perfused Neuro: alert and oriented x3, no focal findings Psych: appropriate affect Objective Data Current Medications Generic Name Dose Route Start Last Admin Trade Name Freq PRN Reason Stop Dose Admin Acetaminophen 650 mg 08/26/20 09:00 08/26/20 09:30 Acetaminophen 325 Mg Tablet PO 650 mg DAILY [facility] Administration Albuterol Sulfate 2 puff 08/25/20 20:22 Albuterol Sulfate 90 Mcg 8 Gm Inhaler INHALE Q4H PRN Wheezing Artificial Tears 1 drop 08/25/20 20:27 Artificial Tears 15 Ml Drops EYE-BOTH DAILY PRN Dry Eyes Aspirin 81 mg 08/26/20 09:00 08/26/20 09:32 Aspirin Enteric Coated 81 Mg Tablet.Dr PO 81 mg DAILY [facility] Administration Atorvastatin Calcium 40 mg 08/25/20 21:00 08/25/20 21:19 Atorvastatin Calcium 40 Mg Tablet PO 40 mg BEDTIME [facility] Administration Bupropion HCl 150 mg 08/26/20 09:00 08/26/20 09:29 Bupropion Hcl Xl 150 Mg Tab.Er.24h PO 150 mg DAILY [facility] Administration Diazepam 5 mg 08/25/20 20:22 Diazepam 5 Mg Tablet PO BEDTIME PRN Anxiety Docusate Sodium 100 mg 08/25/20 21:00 08/26/20 09:31 Docusate Sodium 100 Mg Capsule PO 100 mg BID [facility] Administration Fluticasone Propionate 2 puff 08/26/20 08:00 08/26/20 07:31 Fluticasone Propionate 250 Mcg Blst.W.Dev INHALE Not Given RBID [facility] Folic Acid 1 mg 08/26/20 09:00 08/26/20 09:32 Folic Acid 1 Mg Tablet PO 08/28/20 09:01 1 mg DAILY [facility] Administration Isosorbide Mononitrate 60 mg 08/26/20 09:00 08/26/20 09:30 Isosorbide Mononitrate 60 Mg Tab.Er.24h PO 60 mg DAILY [facility] Administration Protocol Loperamide HCl 4 mg 08/25/20 20:22 Loperamide Hcl 2 Mg Capsule PO DAILY PRN Diarrhea Meclizine HCl 12.5 mg 08/25/20 21:00 08/26/20 09:30 Meclizine Hcl 12.5 Mg Tablet PO 12.5 mg TID [facility] Administration Medication 1 each 08/26/20 09:00 No Benzodiazepines MISCELLANE DAILY [facility] Metoprolol Succinate 50 mg 08/26/20 09:00 08/26/20 09:31 Metoprolol Succinate Er 50 Mg Tab.Er.24h PO 50 mg DAILY [facility] Administration Protocol Nitroglycerin 0.4 mg 08/25/20 20:22 Nitroglycerin 0.4 Mg Tab.Subl SUBLINGUAL DAILY PRN Chest Pain Ondansetron HCl 4 mg 08/25/20 17:38 08/25/20 21:37 Ondansetron Hcl 4 Mg/2 Ml Vial IVPUSH 4 mg Q8H PRN Administration Nausea and Vomiting Pantoprazole Sodium 40 mg 08/25/20 21:00 08/26/20 11:45 Pantoprazole Sodium 40 Mg/10 Ml Vial IVPUSH 40 mg BID [facility] Administration Pharmacy Consult 1 each 08/25/20 12:03 Consult Rx Perform Med Rec MISCELLANE ONCE PRN Consult order Phenobarbital 45 mg 08/26/20 09:00 08/26/20 09:28 Phenobarbital 15 Mg Tablet PO 08/27/20 21:01 45 mg BID [facility] Administration Phenobarbital 30 mg 08/28/20 09:00 Phenobarbital 30 Mg Tablet PO 08/29/20 21:01 BID [facility] Phenobarbital 15 mg 08/30/20 09:00 Phenobarbital 15 Mg Tablet PO 08/31/20 09:01 DAILY [facility] Risperidone 6 mg 08/25/20 21:00 08/25/20 21:28 Risperidone 3 Mg Tablet PO 6 mg BEDTIME [facility] Administration Sodium Chloride 3 ml 08/26/20 00:00 08/26/20 09:28 0.9 % Sodium Chloride Flush 3 Ml Syringe IVFLUSH 3 ml QSHIFT [facility] Administration Sodium Chloride 1 gm 08/26/20 15:00 Sodium Chloride Tab 1 Gm Tablet PO TID [facility] Sodium Chloride 1 gm 08/26/20 15:00 Sodium Chloride Tab 1 Gm Tablet PO TID [facility] Tamsulosin HCl 0.4 mg 08/26/20 09:00 08/26/20 09:31 Tamsulosin Hcl 0.4 Mg Capsule PO 0.4 mg DAILY [facility] Administration Thiamine HCl 100 mg 08/26/20 09:00 08/26/20 09:32 Thiamine Hcl 100 Mg Tablet PO 08/28/20 09:01 100 mg DAILY [facility] Administration Tiotropium [place] 1 puff 08/26/20 08:00 08/26/20 07:32 Tiotropium [place] 18 Mcg Cap.W.Dev INHALE Not Given RDAILY [facility] Labs CBC & Chem 7: 08/26/20 08:37 08/26/20 11:24 Labs: Laboratory Results - last 24 hr 08/25/20 08/25/20 08/26/20 12:43 20:58 05:10 WBC RBC Hgb Hct MCV MCH MCHC RDW Plt Count MPV Immature Gran % (Auto) Neut % (Auto) Lymph % (Auto) Mower % (Auto) Eos % (Auto) Baso % (Auto) Lymph # (Auto) Mower # (Auto) Eos # (Auto) Baso # (Auto) Abs Immat Gran (auto) Absolute Neuts (auto) Absolute Nucleated RBC Nucleated RBC % (auto) Sodium 121 L 127 L Potassium Chloride Carbon Dioxide Anion Gap BUN Creatinine Estim Creat Clear Calc Estimated GFR Random Glucose Uric Acid Calcium Magnesium 1.9 08/26/20 08/26/20 08/26/20 05:10 05:10 08:37 WBC Cancelled 9.4 RBC Cancelled 4.22 L Hgb Cancelled 14.1 Hct Cancelled 39.9 L MCV Cancelled 94.5 MCH Cancelled 33.4 H MCHC Cancelled 35.3 RDW Cancelled 12.2 Plt Count Cancelled 197 MPV Cancelled 9.2 L Immature Gran % (Auto) Cancelled 0.4 Neut % (Auto) Cancelled 75.4 H Lymph % (Auto) Cancelled 16.0 L Mower % (Auto) Cancelled 8.1 Eos % (Auto) Cancelled 0.0 Baso % (Auto) Cancelled 0.1 Lymph # (Auto) Cancelled 1.5 Mower # (Auto) Cancelled 0.8 Eos # (Auto) Cancelled 0.0 Baso # (Auto) Cancelled 0.0 Abs Immat Gran (auto) Cancelled 0.04 H Absolute Neuts (auto) Cancelled 7.1 Absolute Nucleated RBC Cancelled 0.000 Nucleated RBC % (auto) Cancelled 0.0 Sodium 128 L Potassium 3.6 Chloride 91 L Carbon Dioxide 28 Anion Gap 13 BUN 6 L Creatinine 0.66 Estim Creat Clear Calc 92.7 Estimated GFR > 60 Random Glucose 109 Uric Acid Calcium 8.4 Magnesium 08/26/20 08/26/20 11:24 11:24 WBC RBC Hgb Hct MCV MCH MCHC RDW Plt Count MPV Immature Gran % (Auto) Neut % (Auto) Lymph % (Auto) Mower % (Auto) Eos % (Auto) Baso % (Auto) Lymph # (Auto) Mower # (Auto) Eos # (Auto) Baso # (Auto) Abs Immat Gran (auto) Absolute Neuts (auto) Absolute Nucleated RBC Nucleated RBC % (auto) Sodium 124 L Potassium 3.6 Chloride 89 L Carbon Dioxide 29 Anion Gap 10 L BUN Creatinine Estim Creat Clear Calc Estimated GFR Random Glucose Uric Acid 3.2 L Calcium Magnesium Assessment and Plan (1) Hyponatremia: Status: Acute (2) Anemia: Status: Acute Assessment and Plan: hospital d#2 70yo M with COPD on prn O2, daily EtOH use, HTN, HLD, bipolar disease, tobacco abuse, remote GBS, and chronic hyponatremia/SIADH on salt tables presented with urinary retention + report of melanotic stools + dark emesis admitted for severe hypoNa, urinary retention # acute/chronic hypoNa - Na corrected 118->128 in <24hr but now 124. Nephrology following; likely SIADH with reset osmostat. cortisol pending. resume NaCl tabs, fluid restriction. check Na q4h today # question of GI bleed - on PPI, GI consulted + plans EGD tomorrow, NPO p midnight # urinary retention - hx BPH. Keyse in place. Urology consult pending. continue tamsulosin # chronic EtOH use with moderate withdrawal risk - phenobarbital taper, thiamine, folate # CAD - continue statin, nitrate, ASA, B-robert # COPD - not in acute exacerbation; continue LAMA, ICS, prn RAFFI # bipolar disorder - continue bupropion, risperidone # tobacco abuse - nicotine patch # VTE ppx - SCDs, holding heparin due to possible GIB
--- NOTE | 2020-08-26 14:08 | MHC.CLN ---
RE: CONSULT PT'S WT WITHIN IBW RANGE 95% IBW INDICATES ADEQUATE WT FOR HT PREVIOUS WT HX REVEALS 135# 08/17/2018 NO SIGNIFICANT WT LOSS CONTINUE CURRENT PLAN OF CARE
--- NOTE | 2020-08-26 14:10 | MHC.CARE ---
Recieved consult for pt via fax at 1317hrs regarding ETOH. Forwarded consult to recovery nurse RN Cher Oconnell who advised CARE team she would meet with pt.
--- NOTE | 2020-08-26 14:15 | MHC.RECOVRN ---
70 year old male presented to [facility] ED on 08/25/20 due to PT REPORTS BLACK STOOLS THAT STARTED YESTERDAY, 10 DIRRHEA EPISODES ON THE OVERNIGHT/MID ABD PAIN/VOMITING COFFEE GROUNDS/FEELING WEAK per vacuum system tester. Pt subsequently admitted for hyponatremia, anemia, SIADH. Pt also reported alcohol use and was ordered phenobarbital taper.? T/w received?request for consult from CARE team and met with pt in 487. Pt reports 2 12 oz beers daily, Adriel, x 20 years. Pt reports within 20 years has had occasional?time in recovery, longest period lasting one year. Pt states I just did it. Pt does not believe alcohol use is disruptive to his life, states it's how I wind down at night before bed. Pt denies alcohol use interfering with any aspects in life. Pt denies?ever experiencing withdrawal symptoms.? Pt is not interested in recovery services or support. Pt states If I need it my tenriism has it. [facility] and is aware of AA meetings there, although pt has never attended.Pt was provided with resources as well as t/w card. Pt encouraged to reach out if needed.??
[2020-08-26 14:20] LABS: Sodium 124 mmol/L (135-145)
--- NOTE | 2020-08-26 15:18 | MHC.CM.PN ---
pt is a [facility] pace program patient. pls call dianne at dc c the dc plan at [phone]. he is one of the pace program coordinators. cm to cont. to follow.
[2020-08-26 19:53] LABS: Sodium 124 mmol/L (135-145)
[2020-08-26] MEDS: risperiDONE 3 MG TABLET 6 MG PO (21:47)
[2020-08-26] MEDS: Atorvastatin Calcium 40 MG TABLET PO (21:47)
[2020-08-26 22:36] LABS: Sodium 123 mmol/L (135-145)
[2020-08-27] VITALS (11 sets, daily range): BP systolic 98–178; BP diastolic 55–93; PULSE 72–82; RESP 16–20; TEMP 36.5–37.5; O2SAT 94–98
[2020-08-27] MEDS: 0.9 % Sodium Chloride Flush 3 ML SYRINGE IVFLUSH ×4 (01:46→22:32)
[2020-08-27 03:45] LABS: Osmolality Urine 274 mosm/kg (373-1093)
[2020-08-27 04:03] LABS: Uric Acid Urine Random 23.5 mg/dL
[2020-08-27 06:52] LABS: Anion Gap 10 (12-20); Blood Urea Nitrogen 5 mg/dL (9-16); Carbon Dioxide 29 mmol/L (22-29); Chloride 91 mmol/L (96-108); Creatinine Clr Calc Pharmacy 105.5; Estimated Glomerular Filt Rate > 60; Glucose Random 79 mg/dL (60-115); Potassium 3.4 mmol/L (3.3-5.1); Sodium 127 mmol/L (135-145)
[2020-08-27] MEDS: PHENobarbitaL 15 MG TABLET 45 MG PO ×2 (08:01→22:31)
[2020-08-27] MEDS: Tamsulosin HCL 0.4 MG CAPSULE PO (08:01)
[2020-08-27] MEDS: Isosorbide Mononitrate 60 MG TAB.ER.24H PO (08:01)
[2020-08-27] MEDS: Acetaminophen 325 MG TABLET 650 MG PO (08:01)
[2020-08-27] MEDS: buPROPion HCl XL 150 MG TAB.ER.24H PO (08:01)
[2020-08-27] MEDS: Metoprolol Succinate ER 50 MG TAB.ER.24H PO (08:01)
[2020-08-27] MEDS: Pantoprazole Sodium 40 MG/10 ML VIAL IVPUSH ×2 (08:02→22:31)
[2020-08-27] MEDS: Thiamine HCL 100 MG TABLET PO (08:02)
[2020-08-27] MEDS: Meclizine HCl 12.5 MG TABLET PO ×3 (08:02→22:32)
[2020-08-27] MEDS: Folic Acid 1 MG TABLET PO (08:02)
[2020-08-27] MEDS: Fluticasone Propionate 250 MCG BLST.W.DEV 2 PUFF INHALE (08:42)
[2020-08-27] MEDS: Sodium Chloride Tab 1 GM TABLET PO (09:26)
--- NOTE | 2020-08-27 12:20 | P.PNNP_ITS ---
Subjective Subjective Date of Service: 08/27/20 Interval history: Seen and examined. events noted Physical Exam Vital Signs: Vital Signs: Last Vital Signs Temp 97.7 F 08/27/20 08:00 Pulse 82 08/27/20 08:01 Resp 20 08/27/20 08:00 BP 178/92 H 08/27/20 08:01 Pulse Ox 98 08/27/20 08:00 Body Mass Index 21.7 Const: General: comfortable Eyes: General: appearance normal, both eyes and all related structures Resp: Effort & Inspection: normal respiratory effort and able to speak in complete sentences Auscultation: clear to auscultation bilaterally and no wheezes Cardio: Jugular venous distension: no JVD Rate: regular rate Rhythm: reg ular rhythm GI: Inspection: Yes normal to inspection Palpation (GI): Soft to palpation, nontender and no guarding Percussion: Yes normal to percussion Auscultation: normal bowel sounds Skin: General skin exam: no rashes or lesions noted Neuro: General: moves all extremities Extrem: General: Yes normal to inspection Psych: Appearance: grossly normal Objective Data Labs CBC & Chem 7: 08/26/20 08:37 08/27/20 05:17 Labs: Laboratory Results - last 24 hr 08/26/20 08/26/20 08/26/20 11:24 11:24 13:48 Sodium 124 L 124 L Potassium 3.6 Chloride 89 L Carbon Dioxide 29 Anion Gap 10 L BUN Creatinine Estim Creat Clear Calc Estimated GFR Random Glucose Uric Acid 3.2 L Calcium Urine Osmolality Ur Random Sodium Ur Random Uric Acid 08/26/20 08/26/20 08/27/20 19:08 22:09 02:40 Sodium 124 L 123 L Potassium Chloride Carbon Dioxide Anion Gap BUN Creatinine Estim Creat Clear Calc Estimated GFR Random Glucose Uric Acid Calcium Urine Osmolality 274 L Ur Random Sodium Ur Random Uric Acid 08/27/20 08/27/20 08/27/20 02:40 02:40 05:17 Sodium 127 L Potassium 3.4 Chloride 91 L Carbon Dioxide 29 Anion Gap 10 L BUN 5 L Creatinine 0.58 Estim Creat Clear Calc 105.5 Estimated GFR > 60 Random Glucose 79 Uric Acid Calcium 8.0 L Urine Osmolality Ur Random Sodium 50.0 Ur Random Uric Acid 23.5 Assessment & Plan Assessment and plan (1) Chronic hyponatremia: Status: Acute (2) Hyponatremia: Status: Acute (3) Anemia: Status: Acute (4) SIADH (syndrome of inappropriate ADH production): Status: Acute Assessment and Plan: 70 year old male with history of COPD on PRN O2, daily etoh use, HTN, HLD, bipolar disorder, hx hyponatremia 2/2 SIADH on salt tabs, hx CAP, 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 Euvolemic HypoNa: w/u is c/w SIADH which appears to be intermititent pattern of ADH release given low Uosm on adm REC: cont NaCl tabs and can incr to 2 gm tid; unfortunately can not use UREA gievn ETOH/liver Dz concerns will folow with team and need to cont with PO fluid restricition Time Spent With Patient Time: Total time spent is greater than 50% in coordination of care (as documented) at patient's floor/unit and/or counseling patient:
--- NOTE | 2020-08-27 13:12 | P.CNUR_ITS ---
History of Present Illness Consult details Consult date: 08/26/20 Narrative: 70-year-old male with admission for COPD exacerbation Found to be in urinary retention Keyes catheter placed On conversation states had weakness of stream for extended period of time prior to admission Start on alpha-robert and finasteride Voiding trial in 48 hours [facility] Past Medical History Medical History (Updated 08/27/20 @ 13:14 by Ceasar Randolph MD) Bipolar 1 disorder BPH (benign prostatic hyperplasia) COPD (chronic obstructive pulmonary disease) Degenerative joint disease of left hip Depression High cholesterol History of Guillain-Stowell syndrome Hypertension Urinary retention Surgical History Surgical History (Updated 08/25/20 @ 09:58 by Edita Maddox) History of nasal surgery Social History Social History (Updated 08/25/20 @ 10:16 by WILLI Cardona) Household Members: None Housing: Apartment Do you presently have visiting nurse or other home services: Yes Alcohol intake: current Alcohol intake frequency: 0-2 drinks per day Alcohol type: beer Smoking Status: Current every day smoker Tobacco Type: Cigarette Cigarettes Per Day: 1 Smoked in Last 30 Days: Yes Patient Interested in Nicotine Replacement: No Patient Given Instructions on How to Stop Smoking: No (refused) Use of substances other than those prescribed or required for medical reasons: No Currently Displaying Signs/Symptoms of Drug Intoxication Withdrawal: No Have you been hit, kicked, punched, or otherwise hurt by someone within the past year? If so, by whom?: No Do you feel safe in your current relationship?: No Current Relationship Is there a partner from a previous relationship who is making you feel unsafe now?: No Are you made to feel afraid or neglected: No Advance Directives: No Advance Directives Information Provided: No Do you have thoughts of harming others: None Do you have a plan to hurt others: No Plan Recently lost weight without trying: Yes service: No Current occupational status: retired Meds Allergies Allergy/AdvReac Type Severity Reaction Status Date / Time No Known Allergies Allergy Unverified 02/29/20 14:50 [No Known Allergies*] N.K.D.A. Allergy Unknown Uncoded 11/09/17 00:00 Active Medications: Current Medications Generic Name Dose Route Start Last Admin Trade Name Freq PRN Reason Stop Dose Admin Acetaminophen 650 mg 08/26/20 09:00 08/27/20 08:01 Acetaminophen 325 Mg Tablet PO 650 mg DAILY [facility] Administration Albuterol Sulfate 2 puff 08/25/20 20:22 Albuterol Sulfate 90 Mcg 8 Gm Inhaler INHALE Q4H PRN Wheezing Artificial Tears 1 drop 08/25/20 20:27 Artificial Tears 15 Ml Drops EYE-BOTH DAILY PRN Dry Eyes Aspirin 81 mg 08/26/20 09:00 08/27/20 08:04 Aspirin Enteric Coated 81 Mg Tablet.Dr PO Not Given DAILY [facility] Atorvastatin Calcium 40 mg 08/25/20 21:00 08/26/20 21:47 Atorvastatin Calcium 40 Mg Tablet PO 40 mg BEDTIME [facility] Administration Bupropion HCl 150 mg 08/26/20 09:00 08/27/20 08:01 Bupropion Hcl Xl 150 Mg Tab.Er.24h PO 150 mg DAILY [facility] Administration Diazepam 5 mg 08/25/20 20:22 Diazepam 5 Mg Tablet PO BEDTIME PRN Anxiety Docusate Sodium 100 mg 08/25/20 21:00 08/27/20 08:04 Docusate Sodium 100 Mg Capsule PO Not Given BID [facility] Fluticasone Propionate 2 puff 08/26/20 08:00 08/27/20 08:42 Fluticasone Propionate 250 Mcg Blst.W.Dev INHALE 2 puff RBID [facility] Administration Folic Acid 1 mg 08/26/20 09:00 08/27/20 08:02 Folic Acid 1 Mg Tablet PO 08/28/20 09:01 1 mg DAILY [facility] Administration Isosorbide Mononitrate 60 mg 08/26/20 09:00 08/27/20 08:01 Isosorbide Mononitrate 60 Mg Tab.Er.24h PO 60 mg DAILY [facility] Administration Protocol Loperamide HCl 4 mg 08/25/20 20:22 Loperamide Hcl 2 Mg Capsule PO DAILY PRN Diarrhea Meclizine HCl 12.5 mg 08/25/20 21:00 08/27/20 08:02 Meclizine Hcl 12.5 Mg Tablet PO 12.5 mg TID [facility] Administration Medication 1 each 08/26/20 09:00 No Benzodiazepines MISCELLANE DAILY [facility] Metoprolol Succinate 50 mg 08/26/20 09:00 08/27/20 08:01 Metoprolol Succinate Er 50 Mg Tab.Er.24h PO 50 mg DAILY [facility] Administration Protocol Nitroglycerin 0.4 mg 08/25/20 20:22 Nitroglycerin 0.4 Mg Tab.Subl SUBLINGUAL DAILY PRN Chest Pain Ondansetron HCl 4 mg 08/25/20 17:38 08/25/20 21:37 Ondansetron Hcl 4 Mg/2 Ml Vial IVPUSH 4 mg Q8H PRN Administration Nausea and Vomiting Pantoprazole Sodium 40 mg 08/25/20 21:00 08/27/20 08:02 Pantoprazole Sodium 40 Mg/10 Ml Vial IVPUSH 40 mg BID [facility] Administration Pharmacy Consult 1 each 08/25/20 12:03 Consult Rx Perform Med Rec MISCELLANE ONCE PRN Consult order Phenobarbital 45 mg 08/26/20 09:00 08/27/20 08:01 Phenobarbital 15 Mg Tablet PO 08/27/20 21:01 45 mg BID [facility] Administration Phenobarbital 30 mg 08/28/20 09:00 Phenobarbital 30 Mg Tablet PO 08/29/20 21:01 BID [facility] Phenobarbital 15 mg 08/30/20 09:00 Phenobarbital 15 Mg Tablet PO 08/31/20 09:01 DAILY [facility] Risperidone 6 mg 08/25/20 21:00 08/26/20 21:47 Risperidone 3 Mg Tablet PO 6 mg BEDTIME [facility] Administration Sodium Chloride 3 ml 08/26/20 00:00 08/27/20 08:03 0.9 % Sodium Chloride Flush 3 Ml Syringe IVFLUSH 3 ml QSHIFT [facility] Administration Sodium Chloride 1 gm 08/26/20 15:00 08/27/20 09:26 Sodium Chloride Tab 1 Gm Tablet PO 1 gm TID [facility] Administration Tamsulosin HCl 0.4 mg 08/26/20 09:00 08/27/20 08:01 Tamsulosin Hcl 0.4 Mg Capsule PO 0.4 mg DAILY [facility] Administration Thiamine HCl 100 mg 08/26/20 09:00 08/27/20 08:02 Thiamine Hcl 100 Mg Tablet PO 08/28/20 09:01 100 mg DAILY [facility] Administration Tiotropium [place] 1 puff 08/28/20 08:00 Tiotropium [place] 18 Mcg Cap.W.Dev INHALE RDAILY [facility] Home Medications Medication Instructions Recorded Confirmed Last Taken Type acetaminophen 650 mg PO DAILY 04/06/20 08/25/20 Unknown History aspirin 81 mg PO DAILY 04/06/20 08/25/20 Unknown History atorvastatin 40 mg PO BEDTIME 04/06/20 08/25/20 Unknown History bupropion HCl 1 tab PO DAILY 04/06/20 08/25/20 Unknown History carboxymethylcellulose sodium 0.5 drp OPHTHALMIC (EYE) DAILY PRN 04/06/20 08/25/20 Unknown History [Refresh Tears] diazepam 1 tab PO BEDTIME PRN 04/06/20 08/25/20 Unknown History docusate sodium 1 cap PO BID 04/06/20 08/25/20 Unknown History fluticasone propionate [Flovent 2 puff INHALATION BID 04/06/20 08/25/20 Unknown History HFA] isosorbide mononitrate 60 mg PO DAILY 04/06/20 08/25/20 Unknown History loratadine 1 tab PO DAILY 04/06/20 08/25/20 Unknown History meclizine 12.5 mg PO TID 04/06/20 08/25/20 Unknown History metoprolol succinate 1 tab PO DAILY 04/06/20 08/25/20 Unknown History nitroglycerin 0.4 mg SUBLINGUAL DAILY PRN 04/06/20 08/25/20 Unknown History risperidone 6 mg PO BEDTIME 04/06/20 08/25/20 Unknown History sodium chloride 1 mg PO DAILY 04/06/20 08/25/20 Unknown History tamsulosin 1 cap PO DAILY 04/06/20 08/25/20 Unknown History albuterol sulfate 90 inh INHALATION Q4-6H PRN 08/25/20 08/25/20 Unknown History loperamide 4 mg PO DAILY PRN 08/25/20 08/25/20 Unknown History tiotropium bromide [Spiriva with 1 cap INHALATION DAILY 08/25/20 08/25/20 Unknown History HandiHaler] Physical Exam Vital Signs: Vital Signs: Last Vital Signs Temp 97.7 F 08/27/20 08:00 Pulse 82 08/27/20 08:01 Resp 20 08/27/20 08:00 BP 178/92 H 08/27/20 08:01 Pulse Ox 98 08/27/20 08:00 Body Mass Index 21.7 Const: General: cooperative, healthy appearing, comfortable and no acute distress Nutritional Appearance: average body habitus Orientation/con sciousness: oriented to person, oriented to place and oriented to time Eyes: General: appearance normal, both eyes and all related structures Chest: Chest palpation & inspection: normal inspection of the chest Resp: Effort & Inspection: normal respiratory effort Cardio: Rate: regular rate GI: Inspection: Yes normal to inspection Skin: Hair: normal Neuro: General: oriented to person, oriented to place and oriented to time Extrem: General: Yes normal to inspection Results Labs Result diagrams: 08/26/20 08:37 08/27/20 05:17 Labs: Abnormal lab results 08/26/20 08/26/20 08/26/20 Range/Units 13:48 19:08 22:09 Sodium 124 L 124 L 123 L (135-145) mmol/L Chloride (96-108) mmol/L Anion Gap (12-20) BUN (9-16) mg/dL Calcium (8.4-10.2) mg/dL Urine Osmolality (373-1093) mosm/kg 08/27/20 08/27/20 Range/Units 02:40 05:17 Sodium 127 L (135-145) mmol/L Chloride 91 L (96-108) mmol/L Anion Gap 10 L (12-20) BUN 5 L (9-16) mg/dL Calcium 8.0 L (8.4-10.2) mg/dL Urine Osmolality 274 L (373-1093) mosm/kg BMP 08/26/20 08/26/20 08/26/20 13:48 19:08 22:09 Sodium 124 L 124 L 123 L Potassium Chloride Carbon Dioxide BUN Creatinine Calcium 08/27/20 05:17 Sodium 127 L Potassium 3.4 Chloride 91 L Carbon Dioxide 29 BUN 5 L Creatinine 0.58 Calcium 8.0 L Urine 08/25/20 Range/Units 11:30 Urine Color YELLOW Urine Appearance CLEAR Urine pH 7.0 (5.0-8.0) Ur Specific [place] <= 1.005 (1.005-1.025) Urine Protein NEG (NEG-TRACE) MG/DL Urine Glucose (UA) NEG (NEG) MG/DL All other labs normal. Assessment and Plan (1) BPH (benign prostatic hyperplasia): Status: Inactive (2) Urinary retention: Status: Inactive Alpha-robert and finasteride Voiding trial 48 hours
--- NOTE | 2020-08-27 13:54 | HO.PM.IMPN ---
Subjective Subjective Date of Service: 08/27/20 Interval History: Na slightly improved no N/V/abd pain urine cleared up in [place] Physical Exam Vital Signs: Vital Signs: Last Vital Signs Temp 97.7 F 08/27/20 08:00 Pulse 82 08/27/20 08:01 Resp 20 08/27/20 08:00 BP 178/92 H 08/27/20 08:01 Pulse Ox 98 08/27/20 08:00 Body Mass Index 21.7 Gen: in no acute distress HEENT: sclera anicteric, moist mucus membranes Neck: supple Lungs: clear to auscultation bilaterally Heart: regular rate and rhythm, no murmurs Abd: soft, non-tender, non-distended : Keyes with clear urine Ext: no edema Skin: warm/well-perfused Neuro: alert and oriented x3, no focal findings Psych: appropriate affect Objective Data Current Medications Generic Name Dose Route Start Last Admin Trade Name Freq PRN Reason Stop Dose Admin Acetaminophen 650 mg 08/26/20 09:00 08/27/20 08:01 Acetaminophen 325 Mg Tablet PO 650 mg DAILY [facility] Administration Albuterol Sulfate 2 puff 08/25/20 20:22 Albuterol Sulfate 90 Mcg 8 Gm Inhaler INHALE Q4H PRN Wheezing Artificial Tears 1 drop 08/25/20 20:27 Artificial Tears 15 Ml Drops EYE-BOTH DAILY PRN Dry Eyes Aspirin 81 mg 08/26/20 09:00 08/27/20 08:04 Aspirin Enteric Coated 81 Mg Tablet.Dr PO Not Given DAILY [facility] Atorvastatin Calcium 40 mg 08/25/20 21:00 08/26/20 21:47 Atorvastatin Calcium 40 Mg Tablet PO 40 mg BEDTIME [facility] Administration Bupropion HCl 150 mg 08/26/20 09:00 08/27/20 08:01 Bupropion Hcl Xl 150 Mg Tab.Er.24h PO 150 mg DAILY [facility] Administration Diazepam 5 mg 08/25/20 20:22 Diazepam 5 Mg Tablet PO BEDTIME PRN Anxiety Docusate Sodium 100 mg 08/25/20 21:00 08/27/20 08:04 Docusate Sodium 100 Mg Capsule PO Not Given BID [facility] Finasteride 5 mg 08/27/20 13:15 Finasteride 5 Mg Tablet PO DAILY [facility] Fluticasone Propionate 2 puff 08/26/20 08:00 08/27/20 08:42 Fluticasone Propionate 250 Mcg Blst.W.Dev INHALE 2 puff RBID [facility] Administration Folic Acid 1 mg 08/26/20 09:00 08/27/20 08:02 Folic Acid 1 Mg Tablet PO 08/28/20 09:01 1 mg DAILY [facility] Administration Isosorbide Mononitrate 60 mg 08/26/20 09:00 08/27/20 08:01 Isosorbide Mononitrate 60 Mg Tab.Er.24h PO 60 mg DAILY [facility] Administration Protocol Loperamide HCl 4 mg 08/25/20 20:22 Loperamide Hcl 2 Mg Capsule PO DAILY PRN Diarrhea Meclizine HCl 12.5 mg 08/25/20 21:00 08/27/20 08:02 Meclizine Hcl 12.5 Mg Tablet PO 12.5 mg TID [facility] Administration Medication 1 each 08/26/20 09:00 No Benzodiazepines MISCELLANE DAILY [facility] Metoprolol Succinate 50 mg 08/26/20 09:00 08/27/20 08:01 Metoprolol Succinate Er 50 Mg Tab.Er.24h PO 50 mg DAILY [facility] Administration Protocol Nitroglycerin 0.4 mg 08/25/20 20:22 Nitroglycerin 0.4 Mg Tab.Subl SUBLINGUAL DAILY PRN Chest Pain Ondansetron HCl 4 mg 08/25/20 17:38 08/25/20 21:37 Ondansetron Hcl 4 Mg/2 Ml Vial IVPUSH 4 mg Q8H PRN Administration Nausea and Vomiting Pantoprazole Sodium 40 mg 08/25/20 21:00 08/27/20 08:02 Pantoprazole Sodium 40 Mg/10 Ml Vial IVPUSH 40 mg BID [facility] Administration Pharmacy Consult 1 each 08/25/20 12:03 Consult Rx Perform Med Rec MISCELLANE ONCE PRN Consult order Phenobarbital 45 mg 08/26/20 09:00 08/27/20 08:01 Phenobarbital 15 Mg Tablet PO 08/27/20 21:01 45 mg BID [facility] Administration Phenobarbital 30 mg 08/28/20 09:00 Phenobarbital 30 Mg Tablet PO 08/29/20 21:01 BID [facility] Phenobarbital 15 mg 08/30/20 09:00 Phenobarbital 15 Mg Tablet PO 08/31/20 09:01 DAILY [facility] Risperidone 6 mg 08/25/20 21:00 08/26/20 21:47 Risperidone 3 Mg Tablet PO 6 mg BEDTIME [facility] Administration Sodium Chloride 3 ml 08/26/20 00:00 08/27/20 08:03 0.9 % Sodium Chloride Flush 3 Ml Syringe IVFLUSH 3 ml QSHIFT [facility] Administration Sodium Chloride 1 gm 08/26/20 15:00 08/27/20 09:26 Sodium Chloride Tab 1 Gm Tablet PO 1 gm TID [facility] Administration Tamsulosin HCl 0.4 mg 08/26/20 09:00 08/27/20 08:01 Tamsulosin Hcl 0.4 Mg Capsule PO 0.4 mg DAILY [facility] Administration Thiamine HCl 100 mg 08/26/20 09:00 08/27/20 08:02 Thiamine Hcl 100 Mg Tablet PO 08/28/20 09:01 100 mg DAILY [facility] Administration Tiotropium [place] 1 puff 08/28/20 08:00 Tiotropium [place] 18 Mcg Cap.W.Dev INHALE RDAILY [facility] Labs CBC & Chem 7: 08/26/20 08:37 08/27/20 05:17 Labs: Laboratory Results - last 24 hr 08/26/20 08/26/20 08/26/20 13:48 19:08 22:09 Sodium 124 L 124 L 123 L Potassium Chloride Carbon Dioxide Anion Gap BUN Creatinine Estim Creat Clear Calc Estimated GFR Random Glucose Calcium Urine Osmolality Ur Random Sodium Ur Random Uric Acid 08/27/20 08/27/20 08/27/20 02:40 02:40 02:40 Sodium Potassium Chloride Carbon Dioxide Anion Gap BUN Creatinine Estim Creat Clear Calc Estimated GFR Random Glucose Calcium Urine Osmolality 274 L Ur Random Sodium 50.0 Ur Random Uric Acid 23.5 08/27/20 05:17 Sodium 127 L Potassium 3.4 Chloride 91 L Carbon Dioxide 29 Anion Gap 10 L BUN 5 L Creatinine 0.58 Estim Creat Clear Calc 105.5 Estimated GFR > 60 Random Glucose 79 Calcium 8.0 L Urine Osmolality Ur Random Sodium Ur Random Uric Acid Assessment and Plan (1) Hyponatremia: Status: Acute (2) Anemia: Status: Acute Assessment and Plan: hospital d#3 70yo M with COPD on prn O2, daily EtOH use, HTN, HLD, bipolar disease, tobacco abuse, remote GBS, and 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 cortisol pending. increase NaCl to 2g tid, continue fluid restriction. # question of GI bleed - on PPI, GI consulted + plans EGD today # urinary retention - hx BPH. Keyes in place. Urology consult done- continue tamsulosin, finasteride added; voiding trial in 48h # chronic EtOH use with moderate withdrawal risk - phenobarbital taper, thiamine, folate, counseling # CAD - continue statin, nitrate, ASA, B-robert # COPD - not in acute exacerbation; continue LAMA, ICS, prn RAFFI # bipolar disorder - continue bupropion, risperidone # tobacco abuse - nicotine patch # VTE ppx - SCDs, holding heparin due to possible GIB
--- NOTE | 2020-08-27 14:24 | HO.ANESPROP2 ---
[facility] Active Problems Active Problems: All Active Problems (Updated 08/27/20 @ 13:14 by Ceasar Randolph MD) Coffee ground emesis (Acute) SIADH (syndrome of inappropriate ADH production) (Acute) Chronic hyponatremia (Acute) Hyponatremia (Acute) Anemia (Acute) Past Medical History Medical History Bipolar 1 disorder BPH (benign prostatic hyperplasia) COPD (chronic obstructive pulmonary disease) Degenerative joint disease of left hip Depression High cholesterol History of Guillain-[place] syndrome Hypertension Urinary retention Surgical History Surgical History History of nasal surgery Social History Social History (Updated 08/25/20 @ 10:16 by WILLI Cardona) Household Members: None Housing: Apartment Do you presently have visiting nurse or other home services: Yes Alcohol intake: current Alcohol intake frequency: 0-2 drinks per day Alcohol type: beer Smoking Status: Current every day smoker Tobacco Type: Cigarette Cigarettes Per Day: 1 Smoked in Last 30 Days: Yes Patient Interested in Nicotine Replacement: No Patient Given Instructions on How to Stop Smoking: No (refused) Use of substances other than those prescribed or required for medical reasons: No Currently Displaying Signs/Symptoms of Drug Intoxication Withdrawal: No Have you been hit, kicked, punched, or otherwise hurt by someone within the past year? If so, by whom?: No Do you feel safe in your current relationship?: No Current Relationship Is there a partner from a previous relationship who is making you feel unsafe now?: No Are you made to feel afraid or neglected: No Advance Directives: No Advance Directives Information Provided: No Do you have thoughts of harming others: None Do you have a plan to hurt others: No Plan Recently lost weight without trying: Yes service: No Current occupational status: retired Meds Allergies Allergy/AdvReac Type Severity Reaction Status Date / Time No Known Allergies Allergy Verified 08/27/20 13:56 [No Known Allergies*] N.K.D.A. Allergy Unknown Unknown Uncoded 08/27/20 13:56 Active Medications: Current Medications Generic Name Dose Route Start Last Admin Trade Name Freq PRN Reason Stop Dose Admin Acetaminophen 650 mg 08/26/20 09:00 08/27/20 08:01 Acetaminophen 325 Mg Tablet PO 650 mg DAILY [facility] Administration Albuterol Sulfate 2 puff 08/25/20 20:22 Albuterol Sulfate 90 Mcg 8 Gm Inhaler INHALE Q4H PRN Wheezing Artificial Tears 1 drop 08/25/20 20:27 Artificial Tears 15 Ml Drops EYE-BOTH DAILY PRN Dry Eyes Aspirin 81 mg 08/26/20 09:00 08/27/20 08:04 Aspirin Enteric Coated 81 Mg Tablet.Dr PO Not Given DAILY [facility] Atorvastatin Calcium 40 mg 08/25/20 21:00 08/26/20 21:47 Atorvastatin Calcium 40 Mg Tablet PO 40 mg BEDTIME [facility] Administration Bupropion HCl 150 mg 08/26/20 09:00 08/27/20 08:01 Bupropion Hcl Xl 150 Mg Tab.Er.24h PO 150 mg DAILY [facility] Administration Diazepam 5 mg 08/25/20 20:22 Diazepam 5 Mg Tablet PO BEDTIME PRN Anxiety Docusate Sodium 100 mg 08/25/20 21:00 08/27/20 08:04 Docusate Sodium 100 Mg Capsule PO Not Given BID [facility] Finasteride 5 mg 08/27/20 13:15 Finasteride 5 Mg Tablet PO DAILY [facility] Fluticasone Propionate 2 puff 08/26/20 08:00 08/27/20 08:42 Fluticasone Propionate 250 Mcg Blst.W.Dev INHALE 2 puff RBID [facility] Administration Folic Acid 1 mg 08/26/20 09:00 08/27/20 08:02 Folic Acid 1 Mg Tablet PO 08/28/20 09:01 1 mg DAILY [facility] Administration Isosorbide Mononitrate 60 mg 08/26/20 09:00 08/27/20 08:01 Isosorbide Mononitrate 60 Mg Tab.Er.24h PO 60 mg DAILY [facility] Administration Protocol Loperamide HCl 4 mg 08/25/20 20:22 Loperamide Hcl 2 Mg Capsule PO DAILY PRN Diarrhea Meclizine HCl 12.5 mg 08/25/20 21:00 08/27/20 08:02 Meclizine Hcl 12.5 Mg Tablet PO 12.5 mg TID [facility] Administration Medication 1 each 08/26/20 09:00 No Benzodiazepines MISCELLANE DAILY [facility] Metoprolol Succinate 50 mg 08/26/20 09:00 08/27/20 08:01 Metoprolol Succinate Er 50 Mg Tab.Er.24h PO 50 mg DAILY [facility] Administration Protocol Nitroglycerin 0.4 mg 08/25/20 20:22 Nitroglycerin 0.4 Mg Tab.Subl SUBLINGUAL DAILY PRN Chest Pain Ondansetron HCl 4 mg 08/25/20 17:38 08/25/20 21:37 Ondansetron Hcl 4 Mg/2 Ml Vial IVPUSH 4 mg Q8H PRN Administration Nausea and Vomiting Pantoprazole Sodium 40 mg 08/25/20 21:00 08/27/20 08:02 Pantoprazole Sodium 40 Mg/10 Ml Vial IVPUSH 40 mg BID [facility] Administration Pharmacy Consult 1 each 08/25/20 12:03 Consult Rx Perform Med Rec MISCELLANE ONCE PRN Consult order Phenobarbital 45 mg 08/26/20 09:00 08/27/20 08:01 Phenobarbital 15 Mg Tablet PO 08/27/20 21:01 45 mg BID [facility] Administration Phenobarbital 30 mg 08/28/20 09:00 Phenobarbital 30 Mg Tablet PO 08/29/20 21:01 BID [facility] Phenobarbital 15 mg 08/30/20 09:00 Phenobarbital 15 Mg Tablet PO 08/31/20 09:01 DAILY [facility] Risperidone 6 mg 08/25/20 21:00 08/26/20 21:47 Risperidone 3 Mg Tablet PO 6 mg BEDTIME [facility] Administration Sodium Chloride 3 ml 08/26/20 00:00 08/27/20 08:03 0.9 % Sodium Chloride Flush 3 Ml Syringe IVFLUSH 3 ml QSHIFT [facility] Administration Sodium Chloride 2 gm 08/27/20 15:00 Sodium Chloride Tab 1 Gm Tablet PO TID [facility] Tamsulosin HCl 0.4 mg 08/26/20 09:00 08/27/20 08:01 Tamsulosin Hcl 0.4 Mg Capsule PO 0.4 mg DAILY [facility] Administration Thiamine HCl 100 mg 08/26/20 09:00 08/27/20 08:02 Thiamine Hcl 100 Mg Tablet PO 08/28/20 09:01 100 mg DAILY [facility] Administration Tiotropium Jewett 1 puff 08/28/20 08:00 Tiotropium Jewett 18 Mcg Cap.W.Dev INHALE RDAILY [facility] Home Medications Medication Instructions Recorded Confirmed Last Taken Type acetaminophen 650 mg PO DAILY 04/06/20 08/25/20 Unknown History aspirin 81 mg PO DAILY 04/06/20 08/25/20 Unknown History atorvastatin 40 mg PO BEDTIME 04/06/20 08/25/20 Unknown History bupropion HCl 1 tab PO DAILY 04/06/20 08/25/20 Unknown History carboxymethylcellulose sodium 0.5 drp OPHTHALMIC (EYE) DAILY PRN 04/06/20 08/25/20 Unknown History [Refresh Tears] diazepam 1 tab PO BEDTIME PRN 04/06/20 08/25/20 Unknown History docusate sodium 1 cap PO BID 04/06/20 08/25/20 Unknown History fluticasone propionate [Flovent 2 puff INHALATION BID 04/06/20 08/25/20 Unknown History HFA] isosorbide mononitrate 60 mg PO DAILY 04/06/20 08/25/20 Unknown History loratadine 1 tab PO DAILY 04/06/20 08/25/20 Unknown History meclizine 12.5 mg PO TID 04/06/20 08/25/20 Unknown History metoprolol succinate 1 tab PO DAILY 04/06/20 08/25/20 Unknown History nitroglycerin 0.4 mg SUBLINGUAL DAILY PRN 04/06/20 08/25/20 Unknown History risperidone 6 mg PO BEDTIME 04/06/20 08/25/20 Unknown History sodium chloride 1 mg PO DAILY 04/06/20 08/25/20 Unknown History tamsulosin 1 cap PO DAILY 04/06/20 08/25/20 Unknown History albuterol sulfate 90 inh INHALATION Q4-6H PRN 08/25/20 08/25/20 Unknown History loperamide 4 mg PO DAILY PRN 08/25/20 08/25/20 Unknown History tiotropium bromide [Spiriva with 1 cap INHALATION DAILY 08/25/20 08/25/20 Unknown History HandiHaler] Exam Exam Date and Time: August 27, 2020 1424 Height,Weight and Vital Signs: Height 5 ft 6 in Weight 61.235 kg Last Vital Signs Temp 99.5 F 08/27/20 13:57 Pulse 74 08/27/20 13:57 Resp 18 08/27/20 13:57 BP 171/85 H 08/27/20 13:57 Pulse Ox 94 08/27/20 13:57 Pertinent Lab Results Pertinent Lab Results: Laboratory Tests 08/25/20 08/25/20 08/25/20 10:23 10:23 10:23 WBC 11.0 H RBC 3.86 L Hgb 13.2 L Hct 35.6 L MCV 92.2 MCH 34.2 H MCHC 37.1 H RDW 11.8 Plt Count 162 MPV 9.0 L Immature Gran % (Auto) 0.6 H Neut % (Auto) 83.3 H Lymph % (Auto) 9.0 L Desha % (Auto) 6.9 Eos % (Auto) 0.1 Baso % (Auto) 0.1 Lymph # (Auto) 1.0 L Desha # (Auto) 0.8 Eos # (Auto) 0.0 Baso # (Auto) 0.0 Abs Immat Gran (auto) 0.07 H Absolute Neuts (auto) 9.1 H Absolute Nucleated RBC 0.000 Nucleated RBC % (auto) 0.0 PT 13.5 H INR 1.1 APTT 35.5 Sodium 118 L* Potassium 3.8 Chloride 83 L Carbon Dioxide 28 Anion Gap 11 L BUN 6 L Creatinine 0.62 Estim Creat Clear Calc 98.7 Estimated GFR > 60 Random Glucose 102 Uric Acid Calcium 8.2 L D Magnesium 1.6 Total Bilirubin 0.8 Direct Bilirubin 0.5 AST 22 ALT 12 Alkaline Phosphatase 67 Troponin I High Sens Total Protein 6.0 L Albumin 3.5 Urine Color Urine Appearance Urine pH Ur Specific [place] Urine Protein Urine Glucose (UA) Urine Ketones Urine Blood Urine Nitrite Ur Leukocyte Esterase Urine Osmolality Ur Random Sodium Ur Random Uric Acid Stool Occult Blood Ethyl Alcohol COVID-19 ([facility]) COVID-19 Clin Com Blood Type Antibody Screen 08/25/20 08/25/20 08/25/20 10:23 10:23 10:23 WBC RBC Hgb Hct MCV MCH MCHC RDW Plt Count MPV Immature Gran % (Auto) Neut % (Auto) Lymph % (Auto) Desha % (Auto) Eos % (Auto) Baso % (Auto) Lymph # (Auto) Desha # (Auto) Eos # (Auto) Baso # (Auto) Abs Immat Gran (auto) Absolute Neuts (auto) Absolute Nucleated RBC Nucleated RBC % (auto) PT INR APTT Sodium Potassium Chloride Carbon Dioxide Anion Gap BUN Creatinine Estim Creat Clear Calc Estimated GFR Random Glucose Uric Acid Calcium Magnesium Total Bilirubin Direct Bilirubin AST ALT Alkaline Phosphatase Troponin I High Sens 9.8 Total Protein Albumin Urine Color Urine Appearance Urine pH Ur Specific [place] Urine Protein Urine Glucose (UA) Urine Ketones Urine Blood Urine Nitrite Ur Leukocyte Esterase Urine Osmolality Ur Random Sodium Ur Random Uric Acid Stool Occult Blood Ethyl Alcohol < 10 COVID-19 ([facility]) Negative COVID-19 [facility] Com See Note Blood Type Antibody Screen 08/25/20 08/25/20 08/25/20 10:23 11:30 11:30 WBC RBC Hgb Hct MCV MCH MCHC RDW Plt Count MPV Immature Gran % (Auto) Neut % (Auto) Lymph % (Auto) Desha % (Auto) Eos % (Auto) Baso % (Auto) Lymph # (Auto) Desha # (Auto) Eos # (Auto) Baso # (Auto) Abs Immat Gran (auto) Absolute Neuts (auto) Absolute Nucleated RBC Nucleated RBC % (auto) PT INR APTT Sodium Potassium Chloride Carbon Dioxide Anion Gap BUN Creatinine Estim Creat Clear Calc Estimated GFR Random Glucose Uric Acid Calcium Magnesium Total Bilirubin Direct Bilirubin AST ALT Alkaline Phosphatase Troponin I High Sens Total Protein Albumin Urine Color YELLOW Urine Appearance CLEAR Urine pH 7.0 Ur Specific [place] <= 1.005 Urine Protein NEG Urine Glucose (UA) NEG Urine Ketones NEG Urine Blood NEG Urine Nitrite NEG Ur Leukocyte Esterase NEG Urine Osmolality Ur Random Sodium Ur Random Uric Acid Stool Occult Blood NEG Ethyl Alcohol COVID-19 ([facility]) COVID-[facility] Com Blood Type O Positive Antibody Screen NEGATIVE 08/25/20 08/25/20 08/25/20 11:30 11:30 12:43 WBC RBC Hgb Hct MCV MCH MCHC RDW Plt Count MPV Immature Gran % (Auto) Neut % (Auto) Lymph % (Auto) Desha % (Auto) Eos % (Auto) Baso % (Auto) Lymph # (Auto) Desha # (Auto) Eos # (Auto) Baso # (Auto) Abs Immat Gran (auto) Absolute Neuts (auto) Absolute Nucleated RBC Nucleated RBC % (auto) PT INR APTT Sodium 121 L Potassium Chloride Carbon Dioxide Anion Gap BUN Creatinine Estim Creat Clear Calc Estimated GFR Random Glucose Uric Acid Calcium Magnesium Total Bilirubin Direct Bilirubin AST ALT Alkaline Phosphatase Troponin I High Sens Total Protein Albumin Urine Color Urine Appearance Urine pH Ur Specific [place] Urine Protein Urine Glucose (UA) Urine Ketones Urine Blood Urine Nitrite Ur Leukocyte Esterase Urine Osmolality 128 L Ur Random Sodium < 20.0 Ur Random Uric Acid Stool Occult Blood Ethyl Alcohol COVID-19 ([facility]) COVID-[facility] Com Blood Type Antibody Screen 08/25/20 08/26/20 08/26/20 20:58 05:10 05:10 WBC Cancelled RBC Cancelled Hgb Cancelled Hct Cancelled MCV Cancelled MCH Cancelled MCHC Cancelled RDW Cancelled Plt Count Cancelled MPV Cancelled Immature Gran % (Auto) Cancelled Neut % (Auto) Cancelled Lymph % (Auto) Cancelled Desha % (Auto) Cancelled Eos % (Auto) Cancelled Baso % (Auto) Cancelled Lymph # (Auto) Cancelled Desha # (Auto) Cancelled Eos # (Auto) Cancelled Baso # (Auto) Cancelled Abs Immat Gran (auto) Cancelled Absolute Neuts (auto) Cancelled Absolute Nucleated RBC Cancelled Nucleated RBC % (auto) Cancelled PT INR APTT Sodium 127 L Potassium Chloride Carbon Dioxide Anion Gap BUN Creatinine Estim Creat Clear Calc Estimated GFR Random Glucose Uric Acid Calcium Magnesium 1.9 Total Bilirubin Direct Bilirubin AST ALT Alkaline Phosphatase Troponin I High Sens Total Protein Albumin Urine Color Urine Appearance Urine pH Ur Specific [place] Urine Protein Urine Glucose (UA) Urine Ketones Urine Blood Urine Nitrite Ur Leukocyte Esterase Urine Osmolality Ur Random Sodium Ur Random Uric Acid Stool Occult Blood Ethyl Alcohol COVID-19 ([facility]) COVID-19 Clin Com Blood Type Antibody Screen 08/26/20 08/26/20 08/26/20 05:10 08:37 11:24 WBC 9.4 RBC 4.22 L Hgb 14.1 Hct 39.9 L MCV 94.5 MCH 33.4 H MCHC 35.3 RDW 12.2 Plt Count 197 MPV 9.2 L Immature Gran % (Auto) 0.4 Neut % (Auto) 75.4 H Lymph % (Auto) 16.0 L Desha % (Auto) 8.1 Eos % (Auto) 0.0 Baso % (Auto) 0.1 Lymph # (Auto) 1.5 Desha # (Auto) 0.8 Eos # (Auto) 0.0 Baso # (Auto) 0.0 Abs Immat Gran (auto) 0.04 H Absolute Neuts (auto) 7.1 Absolute Nucleated RBC 0.000 Nucleated RBC % (auto) 0.0 PT INR APTT Sodium 128 L 124 L Potassium 3.6 3.6 Chloride 91 L 89 L Carbon Dioxide 28 29 Anion Gap 13 10 L BUN 6 L Creatinine 0.66 Estim Creat Clear Calc 92.7 Estimated GFR > 60 Random Glucose 109 Uric Acid Calcium 8.4 Magnesium Total Bilirubin Direct Bilirubin AST ALT Alkaline Phosphatase Troponin I High Sens Total Protein Albumin Urine Color Urine Appearance Urine pH Ur Specific [place] Urine Protein Urine Glucose (UA) Urine Ketones Urine Blood Urine Nitrite Ur Leukocyte Esterase Urine Osmolality Ur Random Sodium Ur Random Uric Acid Stool Occult Blood Ethyl Alcohol COVID-19 ([facility]) COVID-19 [facility] Blood Type Antibody Screen 08/26/20 08/26/20 08/26/20 11:24 13:48 19:08 WBC RBC Hgb Hct MCV MCH MCHC RDW Plt Count MPV Immature Gran % (Auto) Neut % (Auto) Lymph % (Auto) Desha % (Auto) Eos % (Auto) Baso % (Auto) Lymph # (Auto) Desha # (Auto) Eos # (Auto) Baso # (Auto) Abs Immat Gran (auto) Absolute Neuts (auto) Absolute Nucleated RBC Nucleated RBC % (auto) PT INR APTT Sodium 124 L 124 L Potassium Chloride Carbon Dioxide Anion Gap BUN Creatinine Estim Creat Clear Calc Estimated GFR Random Glucose Uric Acid 3.2 L Calcium Magnesium Total Bilirubin Direct Bilirubin AST ALT Alkaline Phosphatase Troponin I High Sens Total Protein Albumin Urine Color Urine Appearance Urine pH Ur Specific [place] Urine Protein Urine Glucose (UA) Urine Ketones Urine Blood Urine Nitrite Ur Leukocyte Esterase Urine Osmolality Ur Random Sodium Ur Random Uric Acid Stool Occult Blood Ethyl Alcohol COVID-19 ([facility]) COVID-19 [facility] Blood Type Antibody Screen 08/26/20 08/27/20 08/27/20 22:09 02:40 02:40 WBC RBC Hgb Hct MCV MCH MCHC RDW Plt Count MPV Immature Gran % (Auto) Neut % (Auto) Lymph % (Auto) Desha % (Auto) Eos % (Auto) Baso % (Auto) Lymph # (Auto) Desha # (Auto) Eos # (Auto) Baso # (Auto) Abs Immat Gran (auto) Absolute Neuts (auto) Absolute Nucleated RBC Nucleated RBC % (auto) PT INR APTT Sodium 123 L Potassium Chloride Carbon Dioxide Anion Gap BUN Creatinine Estim Creat Clear Calc Estimated GFR Random Glucose Uric Acid Calcium Magnesium Total Bilirubin Direct Bilirubin AST ALT Alkaline Phosphatase Troponin I High Sens Total Protein Albumin Urine Color Urine Appearance Urine pH Ur Specific [place] Urine Protein Urine Glucose (UA) Urine Ketones Urine Blood Urine Nitrite Ur Leukocyte Esterase Urine Osmolality 274 L Ur Random Sodium 50.0 Ur Random Uric Acid Stool Occult Blood Ethyl Alcohol COVID-19 ([facility]) COVID-19 [facility] Com Blood Type Antibody Screen 08/27/20 08/27/20 02:40 05:17 WBC RBC Hgb Hct MCV MCH MCHC RDW Plt Count MPV Immature Gran % (Auto) Neut % (Auto) Lymph % (Auto) Desha % (Auto) Eos % (Auto) Baso % (Auto) Lymph # (Auto) Desha # (Auto) Eos # (Auto) Baso # (Auto) Abs Immat Gran (auto) Absolute Neuts (auto) Absolute Nucleated RBC Nucleated RBC % (auto) PT INR APTT Sodium 127 L Potassium 3.4 Chloride 91 L Carbon Dioxide 29 Anion Gap 10 L BUN 5 L Creatinine 0.58 Estim Creat Clear Calc 105.5 Estimated GFR > 60 Random Glucose 79 Uric Acid Calcium 8.0 L Magnesium Total Bilirubin Direct Bilirubin AST ALT Alkaline Phosphatase Troponin I High Sens Total Protein Albumin Urine Color Urine Appearance Urine pH Ur Specific [place] Urine Protein Urine Glucose (UA) Urine Ketones Urine Blood Urine Nitrite Ur Leukocyte Esterase Urine Osmolality Ur Random Sodium Ur Random Uric Acid 23.5 Stool Occult Blood Ethyl Alcohol COVID-19 ([facility]) COVID-19 [facility] Com Blood Type Antibody Screen Airway Mallampati Class: II TM Dist: >3cm Neck ROM: Full Heart: RRR Lungs: CTA
[2020-08-27] MEDS: Lactated Ringers 1,000 ML 50 ML IV (14:30)
--- NOTE | 2020-08-27 15:22 | MHC.SHP ---
Pre-Procedural Eval Section A The patient is an INPATIENT: Yes The History & Physical has been completed within 30 days and I have reviewed it.: Yes Section B Chief Complaint: Hyponatremia Details of Present Illness: melena Allergies: Allergies Allergy/AdvReac Type Severity Reaction Status Date / Time No Known Allergies Allergy Verified 08/27/20 13:56 [No Known Allergies*] N.K.D.A. Allergy Unknown Unknown Uncoded 08/27/20 13:56 Plan Diagnosis/Plan: Unchanged I have reviewed the history and physical and performed a pertinent physical examination on my patient. No changes have occurred unless specified. EGD for assessment
--- NOTE | 2020-08-27 15:22 | PM.OP ---
Brief Operative Note Date of Service: 08/27/20 Pre-op diagnosis: melena Post-op diagnosis: same Procedure: see op note Surgeon: Pavel Valiente MD Anesthesia: MAC Estimated blood loss (mL): 0 Condition: stable Disposition: PACU
--- NOTE | 2020-08-27 15:23 | W.PM.OPN ---
Operative Note Operative Note Date of Service: 08/27/20 Narrative: Procedure Description: EGD FLEXIBLE TRANSORAL UPPER GASTROINTESTINAL ENDOSCOPY UPPER ENDOSCOPY Consent: Indications for the procedure and potential complications of bleeding, perforation, reaction to medications and missed diagnosis were discussed with the patient and informed consent was obtained. Instrument: Olympus GIF H 190 J mid size upper endoscope Monitoring: Vital signs and clinical assessment, continuous EKG monitoring, Pulse oximetry, Carbon Dioxide monitoring and blood pressure monitoring were done throughout the procedure. Procedure: The patient was placed in the left lateral decubitis position and pre-procedure medications were administered and a bite block was placed. The endoscope was inserted into the mouth and advanced under direct vision to the third part of duodenum. A careful inspection was made as the upper endoscope was withdrawn including a retroflexed examination of the proximal stomach; Findings and interventions are described below. Findings: Larynx:normal Esophagus: GE junction at 40 cm, diaphragm hiatus at 40 cm, esophagitis noted at GEJ, LA grade A. Stomach: Patchy gastric erythema cathy in fundus and antrum. Biopsies were obtained. Grade 2 flap valve on retroflexed examination of the cardia. Duodenum: Normal bulb and descending duodenum, no active bleeding noted Intervention: Biopsies as noted above Impression/Findings: gastritis esophagitis PLAN: regular diet avoid nsaids bid pantoprazole 40 gm for 3 months then titrate down to OD if h pylori pos then treat
[2020-08-27] MEDS: Finasteride 5 MG TABLET PO (16:37)
[2020-08-27] MEDS: Sodium Chloride Tab 1 GM TABLET 2 GM PO ×2 (16:37→22:32)
[2020-08-27] MEDS: risperiDONE 3 MG TABLET 6 MG PO (22:31)
[2020-08-27] MEDS: Atorvastatin Calcium 40 MG TABLET PO (22:31)
[2020-08-28] VITALS (8 sets, daily range): BP systolic 161–178; BP diastolic 88–103; PULSE 70–82; RESP 18–19; TEMP 36.1–36.9; O2SAT 94–97
[2020-08-28 07:38] LABS: Alanine Aminotransferase 14 U/L (0-40); Albumin Level 3.3 g/dL (3.5-5.0); Alkaline Phosphatase 62 U/L (39-117); Anion Gap 11 (12-20); Aspartate Amino Transferase 26 U/L (5-37); Bilirubin Total 0.9 mg/dL (0.0-1.0); Blood Urea Nitrogen 8 mg/dL (9-16); Calcium 8.2 mg/dL (8.4-10.2); Carbon Dioxide 28 mmol/L (22-29); Chloride 95 mmol/L (96-108); Creatinine Clr Calc Pharmacy 92.7; Estimated Glomerular Filt Rate > 60; Glucose Random 76 mg/dL (60-115); Magnesium 1.8 mg/dL (1.6-2.6); Potassium 3.8 mmol/L (3.3-5.1); Sodium 130 mmol/L (135-145); Total Protein 5.8 g/dL (6.5-8.0)
[2020-08-28 07:40] LABS: TSH reflex Free T4 0.53 uIU/mL (0.32-4.0)
[2020-08-28] MEDS: Fluticasone Propionate 250 MCG BLST.W.DEV 2 PUFF INHALE ×2 (09:14→20:13)
[2020-08-28] MEDS: Finasteride 5 MG TABLET PO (09:34)
[2020-08-28] MEDS: Isosorbide Mononitrate 60 MG TAB.ER.24H PO (09:34)
[2020-08-28] MEDS: Aspirin Enteric Coated 81 MG TABLET.DR PO (09:34)
[2020-08-28] MEDS: Folic Acid 1 MG TABLET PO (09:35)
[2020-08-28] MEDS: buPROPion HCl XL 150 MG TAB.ER.24H PO (09:35)
[2020-08-28] MEDS: Metoprolol Succinate ER 50 MG TAB.ER.24H PO (09:35)
[2020-08-28] MEDS: Thiamine HCL 100 MG TABLET PO (09:35)
[2020-08-28] MEDS: Sodium Chloride Tab 1 GM TABLET 2 GM PO ×2 (09:35→16:46)
[2020-08-28] MEDS: 0.9 % Sodium Chloride Flush 3 ML SYRINGE IVFLUSH ×2 (09:36→16:47)
[2020-08-28] MEDS: Meclizine HCl 12.5 MG TABLET PO ×3 (09:36→21:38)
[2020-08-28] MEDS: PHENobarbitaL 30 MG TABLET PO ×2 (09:36→21:38)
[2020-08-28] MEDS: Tamsulosin HCL 0.4 MG CAPSULE PO (09:36)
[2020-08-28] MEDS: Acetaminophen 325 MG TABLET 650 MG PO (09:36)
[2020-08-28] MEDS: Docusate Sodium 100 MG CAPSULE PO ×2 (09:46→21:37)
[2020-08-28] MEDS: Lactated Ringers 1,000 ML 50 ML IV (09:57)
--- NOTE | 2020-08-28 12:15 | HO.POSTANES ---
Post Anesthesia Evaluation Post Anesthesia Evaluation Vital Signs: Vital Signs Temp Pulse Resp BP Pulse Ox 08/28/20 11:39 97.0 F 70 18 161/101 H 96 08/28/20 08:00 97.0 F 72 18 08/28/20 04:00 98.3 F 79 18 170/92 H 95 Anesthesia: Monitored Mental Status: Awake Pain Control: Satisfactory Nausea/Vomiting: None Hydration: Adequate Anesthesia-Related Issues: No Anes. Related Issues
--- NOTE | 2020-08-28 14:05 | P.PNIM_ITS ---
Subjective Subjective Date of Service: 08/28/20 Interval History: Na continues to improve denies pain Physical Exam Vital Signs: Vital Signs: Last Vital Signs Temp 97.0 F 08/28/20 11:39 Pulse 70 08/28/20 11:39 Resp 18 08/28/20 11:39 BP 161/101 H 08/28/20 11:39 Pulse Ox 96 08/28/20 11:39 Body Mass Index 21.7 Gen: in no acute distress HEENT: sclera anicteric, moist mucus membranes Neck: supple Lungs: clear to auscultation bilaterally Heart: regular rate and rhythm, no murmurs Abd: soft, non-tender, non-distended : Keyes draining clear urine Ext: no edema Skin: warm/well-perfused Neuro: alert and oriented x3, no focal findings Psych: appropriate affect Objective Data Current Medications Generic Name Dose Route Start Last Admin Trade Name Freq PRN Reason Stop Dose Admin Acetaminophen 650 mg 08/26/20 09:00 08/28/20 09:36 Acetaminophen 325 Mg Tablet PO 650 mg DAILY [facility] Administration Albuterol Sulfate 2 puff 08/25/20 20:22 Albuterol Sulfate 90 Mcg 8 Gm Inhaler INHALE Q4H PRN Wheezing Artificial Tears 1 drop 08/25/20 20:27 Artificial Tears 15 Ml Drops EYE-BOTH DAILY PRN Dry Eyes Aspirin 81 mg 08/26/20 09:00 08/28/20 09:34 Aspirin Enteric Coated 81 Mg Tablet.Dr PO 81 mg DAILY [facility] Administration Atorvastatin Calcium 40 mg 08/25/20 21:00 08/27/20 22:31 Atorvastatin Calcium 40 Mg Tablet PO 40 mg BEDTIME [facility] Administration Bupropion HCl 150 mg 08/26/20 09:00 08/28/20 09:35 Bupropion Hcl Xl 150 Mg Tab.Er.24h PO 150 mg DAILY [facility] Administration Diazepam 5 mg 08/25/20 20:22 Diazepam 5 Mg Tablet PO BEDTIME PRN Anxiety Docusate Sodium 100 mg 08/25/20 21:00 08/28/20 09:46 Docusate Sodium 100 Mg Capsule PO 100 mg BID [facility] Administration Finasteride 5 mg 08/27/20 13:15 08/28/20 09:34 Finasteride 5 Mg Tablet PO 5 mg DAILY [facility] Administration Fluticasone Propionate 2 puff 08/26/20 08:00 08/28/20 09:14 Fluticasone Propionate 250 Mcg Blst.W.Dev INHALE 2 puff RBID [facility] Administration Lactated Ringer's 1,000 mls @ 50 mls/hr 08/27/20 14:30 08/28/20 09:57 Lr IV 50 mls/hr .Q20H [facility] Administration Isosorbide Mononitrate 60 mg 08/26/20 09:00 08/28/20 09:34 Isosorbide Mononitrate 60 Mg Tab.Er.24h PO 60 mg DAILY [facility] Administration Protocol Loperamide HCl 4 mg 08/25/20 20:22 Loperamide Hcl 2 Mg Capsule PO DAILY PRN Diarrhea Meclizine HCl 12.5 mg 08/25/20 21:00 08/28/20 09:36 Meclizine Hcl 12.5 Mg Tablet PO 12.5 mg TID [facility] Administration Medication 1 each 08/26/20 09:00 No Benzodiazepines MISCELLANE DAILY [facility] Metoprolol Succinate 50 mg 08/26/20 09:00 08/28/20 09:35 Metoprolol Succinate Er 50 Mg Tab.Er.24h PO 50 mg DAILY [facility] Administration Protocol Nitroglycerin 0.4 mg 08/25/20 20:22 Nitroglycerin 0.4 Mg Tab.Subl SUBLINGUAL DAILY PRN Chest Pain Omeprazole 20 mg 08/28/20 16:30 Omeprazole 20 Mg Capsule.Dr PO BID@0630,1630 [facility] Ondansetron HCl 4 mg 08/25/20 17:38 08/25/20 21:37 Ondansetron Hcl 4 Mg/2 Ml Vial IVPUSH 4 mg Q8H PRN Administration Nausea and Vomiting Pharmacy Consult 1 each 08/25/20 12:03 Consult Rx Perform Med Rec MISCELLANE ONCE PRN Consult order Phenobarbital 30 mg 08/28/20 09:00 08/28/20 09:36 Phenobarbital 30 Mg Tablet PO 08/29/20 21:01 30 mg BID [facility] Administration Phenobarbital 15 mg 08/30/20 09:00 Phenobarbital 15 Mg Tablet PO 08/31/20 09:01 DAILY [facility] Risperidone 6 mg 08/25/20 21:00 08/27/20 22:31 Risperidone 3 Mg Tablet PO 6 mg BEDTIME [facility] Administration Sodium Chloride 3 ml 08/26/20 00:00 08/28/20 09:36 0.9 % Sodium Chloride Flush 3 Ml Syringe IVFLUSH 3 ml QSHIFT [facility] Administration Sodium Chloride 2 gm 08/27/20 15:00 08/28/20 09:35 Sodium Chloride Tab 1 Gm Tablet PO 2 gm TID [facility] Administration Tamsulosin HCl 0.4 mg 08/26/20 09:00 08/28/20 09:36 Tamsulosin Hcl 0.4 Mg Capsule PO 0.4 mg DAILY [facility] Administration Tiotropium Tol[place] 1 puff 08/28/20 08:00 08/28/20 09:14 Tiotropium Tol[place] 18 Mcg Cap.W.Dev INHALE 1 puff RDAILY [facility] Administration Labs CBC & Chem 7: 08/26/20 08:37 08/28/20 06:06 Labs: Laboratory Results - last 24 hr 08/28/20 08/28/20 06:06 06:06 Sodium 130 L Potassium 3.8 Chloride 95 L Carbon Dioxide 28 Anion Gap 11 L BUN 8 L D Creatinine 0.66 Estim Creat Clear Calc 92.7 Estimated GFR > 60 Random Glucose 76 Calcium 8.2 L Magnesium 1.8 Total Bilirubin 0.9 AST 26 ALT 14 Alkaline Phosphatase 62 Total Protein 5.8 L Albumin 3.3 L TSH 0.53 Assessment and Plan (1) Hyponatremia: Status: Acute (2) Anemia: Status: Acute Assessment and Plan: hospital d#4 70yo M with COPD on prn O2, daily EtOH use, HTN, HLD, bipolar disease, tobacco abuse, remote GBS, and 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 cortisol pending. improved with fluid restriction and NaCl 2g tid # question of GI bleed - EGD done by Dr Valiente 08/27/20: Larynx:normal Esophagus: GE junction at 40 cm, diaphragm hiatus at 40 cm, esophagitis noted at GEJ, LA grade A. Stomach: Patchy gastric erythema cathy in fundus and antrum. Biopsies were obtained. Grade 2 flap valve on retroflexed examination of the cardia. Duodenum: Normal bulb and descending duodenum, - will change PPI to PO; pt will need f/u with GI as outpt + counseled to avoid NSAIDs + EtOH # urinary retention - hx BPH. Keyes in place. Urology consult done- continue tamsulosin, finasteride added; voiding trial tomorrow # chronic EtOH use with moderate withdrawal risk - phenobarbital taper, thiamine, folate, counseling # CAD - continue statin, nitrate, ASA, B-robert # COPD - not in acute exacerbation; continue LAMA, ICS, prn RAFFI # bipolar disorder - continue bupropion, risperidone # tobacco abuse - nicotine patch # VTE ppx - SCDs # dispo - likely home with VNA tomorrow
--- NOTE | 2020-08-28 14:26 | MHC.CM.PN ---
According to PT eval patient will discharge home with PT services. Patient will get services through [facility] program, Fredrick [phone] call on discharge. Patient will need assistance with transportation. CM will continue to follow patient for discharge needs.
--- NOTE | 2020-08-28 15:46 | PC.NURSE ---
[address] North
[2020-08-28] MEDS: Omeprazole 20 MG CAPSULE.DR PO (16:47)
--- NOTE | 2020-08-28 19:53 | P.PNNP_ITS ---
Subjective Subjective Date of Service: 08/28/20 Interval history: Seen and examined. Events noted Physical Exam Vital Signs: Vital Signs: Last Vital Signs Temp 97.4 F 08/28/20 19:24 Pulse 70 08/28/20 19:24 Resp 19 08/28/20 19:24 BP 175/98 H 08/28/20 19:24 Pulse Ox 96 08/28/20 19:24 Body Mass Index 21.7 Const: General: comfortable Eyes: General: appearance normal, both eyes and all related structures Resp: Effort & Inspection: normal respiratory effort and able to speak in complete sentences Auscultation: clear to auscultation bilaterally and no wheezes Cardio: Jugular venous distension: no JVD Rate: regular rate Rhythm: reg ular rhythm GI: Inspection: Yes normal to inspection Palpation (GI): Soft to palpation, nontender and no guarding Percussion: Yes normal to percussion Auscultation: normal bowel sounds Skin: General skin exam: no rashes or lesions noted Neuro: General: moves all extremities Extrem: General: Yes normal to inspection Psych: Appearance: grossly normal Objective Data Labs CBC & Chem 7: 08/26/20 08:37 08/28/20 06:06 Labs: Laboratory Results - last 24 hr 08/28/20 08/28/20 06:06 06:06 Sodium 130 L Potassium 3.8 Chloride 95 L Carbon Dioxide 28 Anion Gap 11 L BUN 8 L D Creatinine 0.66 Estim Creat Clear Calc 92.7 Estimated GFR > 60 Random Glucose 76 Calcium 8.2 L Magnesium 1.8 Total Bilirubin 0.9 AST 26 ALT 14 Alkaline Phosphatase 62 Total Protein 5.8 L Albumin 3.3 L TSH 0.53 Assessment & Plan Assessment and plan (1) Chronic hyponatremia: Status: Acute (2) Hyponatremia: Status: Acute (3) Anemia: Status: Acute (4) SIADH (syndrome of inappropriate ADH production): Status: Acute Assessment and Plan: 70 year old male with history of COPD on PRN O2, daily etoh use, HTN, HLD, bipolar disorder, hx hyponatremia 2/2 SIADH on salt tabs, hx CAP, history of Guillain-[place] in 2011 & active smoker who presents to the ED with 1 day history of multiple black loose stools and 4 episodes of dark brown emesis and found to have severe hypOnatremia and urinary retention Sna levels noted and last SNa 127 1. Euvolemic HypoNa: w/u is c/w SIADH which appears to be intermititent pattern of ADH release given low Uosm on adm; SNa cont to grd incr on PO nacl tabs hypothyroid r/o cortisol pending may need w/u to r/o occult CA as cause odf siadh..usu brain or lung and would need ct scans of both to eval REC: cont NaCl tabs; unfortunately can not use UREA gievn ETOH/liver Dz concerns will folow with team and need to cont with PO fluid restricition Time Spent With Patient Time: Total time spent is greater than 50% in coordination of care (as docume nted) at patient's floor/unit and/or counseling patient:
[2020-08-28] MEDS: Sodium Chloride Tab 1 GM TABLET PO (21:37)
[2020-08-28] MEDS: risperiDONE 3 MG TABLET 6 MG PO (21:38)
[2020-08-28] MEDS: Atorvastatin Calcium 40 MG TABLET PO (21:38)
--- NOTE | 2020-08-28 21:56 | PC.NURSE ---
p-Bp elevated 177/92, pulse 64 I-Dr. Cadena notified of the above e-patient has no complaints ,will monitor
[2020-08-29] VITALS (10 sets, daily range): BP systolic 154–182; BP diastolic 82–102; PULSE 58–74; RESP 18–20; TEMP 36.2–37.2; O2SAT 93–98
[2020-08-29] MEDS: Omeprazole 20 MG CAPSULE.DR PO ×2 (06:25→17:25)
[2020-08-29 07:00] LABS: Anion Gap 15 (12-20); Blood Urea Nitrogen 7 mg/dL (9-16); Calcium 8.3 mg/dL (8.4-10.2); Carbon Dioxide 26 mmol/L (22-29); Chloride 95 mmol/L (96-108); Creatinine Clr Calc Pharmacy 107.4; Estimated Glomerular Filt Rate > 60; Glucose Random 82 mg/dL (60-115); Potassium 3.6 mmol/L (3.3-5.1); Sodium 132 mmol/L (135-145)
[2020-08-29] MEDS: Fluticasone Propionate 250 MCG BLST.W.DEV 2 PUFF INHALE ×2 (07:47→21:13)
[2020-08-29] MEDS: Sodium Chloride Tab 1 GM TABLET PO ×3 (09:06→20:54)
[2020-08-29] MEDS: Meclizine HCl 12.5 MG TABLET PO ×3 (09:06→20:54)
[2020-08-29] MEDS: Isosorbide Mononitrate 60 MG TAB.ER.24H PO (09:06)
[2020-08-29] MEDS: Finasteride 5 MG TABLET PO (09:06)
[2020-08-29] MEDS: Metoprolol Succinate ER 25 MG TAB.ER.24H 75 MG PO (09:06)
[2020-08-29] MEDS: Acetaminophen 325 MG TABLET 650 MG PO (09:06)
[2020-08-29] MEDS: Aspirin Enteric Coated 81 MG TABLET.DR PO (09:06)
[2020-08-29] MEDS: Docusate Sodium 100 MG CAPSULE PO ×2 (09:06→20:53)
[2020-08-29] MEDS: Tamsulosin HCL 0.4 MG CAPSULE PO (09:06)
[2020-08-29] MEDS: PHENobarbitaL 30 MG TABLET PO ×2 (09:07→20:54)
[2020-08-29] MEDS: 0.9 % Sodium Chloride Flush 3 ML SYRINGE IVFLUSH ×2 (09:07→17:25)
[2020-08-29] MEDS: buPROPion HCl XL 150 MG TAB.ER.24H PO (09:07)
--- NOTE | 2020-08-29 15:33 | P.PNNP_ITS ---
Subjective Subjective Date of Service: 08/29/20 Interval history: Seen and examined. Events noted Physical Exam Vital Signs: Vital Signs: Last Vital Signs Temp 97.3 F 08/29/20 15:27 Pulse 58 08/29/20 15:27 Resp 18 08/29/20 15:27 BP 168/90 H 08/29/20 15:27 Pulse Ox 97 08/29/20 15:27 Body Mass Index 21.7 Const: General: comfortable Eyes: General: appearance normal, both eyes and all related structures Resp: Effort & Inspection: normal respiratory effort and able to speak in complete sentences Auscultation: clear to auscultation bilaterally and no wheezes Cardio: Jugular venous distension: no JVD Rate: regular rate Rhythm: reg ular rhythm GI: Inspection: Yes normal to inspection Palpation (GI): Soft to palpation, nontender and no guarding Percussion: Yes normal to percussion Auscultation: normal bowel sounds Skin: General skin exam: no rashes or lesions noted Neuro: General: moves all extremities Extrem: General: Yes normal to inspection Psych: Appearance: grossly normal Objective Data Labs CBC & Chem 7: 08/26/20 08:37 08/29/20 05:17 Labs: Laboratory Results - last 24 hr 08/29/20 05:17 Sodium 132 L Potassium 3.6 Chloride 95 L Carbon Dioxide 26 Anion Gap 15 BUN 7 L Creatinine 0.57 Estim Creat Clear Calc 107.4 Estimated GFR > 60 Random Glucose 82 Calcium 8.3 L Assessment & Plan Assessment and plan (1) Chronic hyponatremia: Status: Acute (2) Hyponatremia: Status: Acute (3) Anemia: Status: Acute (4) SIADH (syndrome of inappropriate ADH production): Status: Acute Assessment and Plan: 70 year old male with history of COPD on PRN O2, daily etoh use, HTN, HLD, bipolar disorder, hx hyponatremia 2/2 SIADH on salt tabs, hx CAP, history of Guillain-[place] in 2011 & active smoker who presents to the ED with 1 day history of multiple black loose stools and 4 episodes of dark brown emesis and found to have severe hypOnatremia and urinary retention Sna levels noted and last SNa 132 1. Euvolemic HypoNa: w/u is c/w SIADH which appears to be intermititent pattern of ADH release given low Uosm on adm; SNa remains stable on po nacl and avoidingexcess po fluid intake may need w/u to r/o occult CA as cause odf siadh..usu brain or lung and would need ct scans of both to eval REC: cont NaCl tabs; unfortunately can not use UREA gievn ETOH/liver Dz concerns will folow with team and need to cont with PO fluid restricition Time Spent With Patient Time: Total time spent is greater than 50% in coordination of care (as documented) at patient's floor/unit and/or counseling patient:
--- NOTE | 2020-08-29 15:55 | PC.NURSE ---
Keyes removed at 1230. Emptied 700cc walter urine. Urinal given to patient and told to use urinal. DTV #1 at 1830.
--- NOTE | 2020-08-29 15:57 | MHC.CM.PN ---
Patient has not voided yet, discharge placed on hold until tomorrow. Patient, [facility] from [facility] and nurse are aware. CM will continue to follow for discharge needs.
--- NOTE | 2020-08-29 16:13 | HO.PM.IMPN ---
Subjective Subjective Date of Service: 08/29/20 Interval History: Na improved no complaints Keyes out at 1230; hasn't voided yet Physical Exam Vital Signs: Vital Signs: Last Vital Signs Temp 97.3 F 08/29/20 15:27 Pulse 58 08/29/20 15:27 Resp 18 08/29/20 15:27 BP 168/90 H 08/29/20 15:27 Pulse Ox 97 08/29/20 15:27 Body Mass Index 21.7 Gen: in no acute distress HEENT: sclera anicteric, moist mucus membranes Neck: supple Lungs: clear to auscultation bilaterally Heart: regular rate and rhythm, no murmurs Abd: soft, non-tender, non-distended Ext: no edema Skin: warm/well-perfused Neuro: alert and oriented x3, no focal findings Psych: appropriate affect Objective Data Current Medications Generic Name Dose Route Start Last Admin Trade Name Freq PRN Reason Stop Dose Admin Acetaminophen 650 mg 08/26/20 09:00 08/29/20 09:06 Acetaminophen 325 Mg Tablet PO 650 mg DAILY [facility] Administration Albuterol Sulfate 2 puff 08/25/20 20:22 Albuterol Sulfate 90 Mcg 8 Gm Inhaler INHALE Q4H PRN Wheezing Artificial Tears 1 drop 08/25/20 20:27 Artificial Tears 15 Ml Drops EYE-BOTH DAILY PRN Dry Eyes Aspirin 81 mg 08/26/20 09:00 08/29/20 09:06 Aspirin Enteric Coated 81 Mg Tablet.Dr PO 81 mg DAILY [facility] Administration Atorvastatin Calcium 40 mg 08/25/20 21:00 08/28/20 21:38 Atorvastatin Calcium 40 Mg Tablet PO 40 mg BEDTIME [facility] Administration Bupropion HCl 150 mg 08/26/20 09:00 08/29/20 09:07 Bupropion Hcl Xl 150 Mg Tab.Er.24h PO 150 mg DAILY [facility] Administration Diazepam 5 mg 08/25/20 20:22 Diazepam 5 Mg Tablet PO BEDTIME PRN Anxiety Docusate Sodium 100 mg 08/25/20 21:00 08/29/20 09:06 Docusate Sodium 100 Mg Capsule PO 100 mg BID [facility] Administration Finasteride 5 mg 08/27/20 13:15 08/29/20 09:06 Finasteride 5 Mg Tablet PO 5 mg DAILY [facility] Administration Fluticasone Propionate 2 puff 08/26/20 08:00 08/29/20 07:47 Fluticasone Propionate 250 Mcg Blst.W.Dev INHALE 2 puff RBID [facility] Administration Lactated Ringer's 1,000 mls @ 50 mls/hr 08/27/20 14:30 08/29/20 06:45 Lr IV Not Given .Q20H [facility] Isosorbide Mononitrate 60 mg 08/26/20 09:00 08/29/20 09:06 Isosorbide Mononitrate 60 Mg Tab.Er.24h PO 60 mg DAILY [facility] Administration Protocol Loperamide HCl 4 mg 08/25/20 20:22 Loperamide Hcl 2 Mg Capsule PO DAILY PRN Diarrhea Meclizine HCl 12.5 mg 08/25/20 21:00 08/29/20 14:55 Meclizine Hcl 12.5 Mg Tablet PO 12.5 mg TID [facility]IA Administration Medication 1 each 08/26/20 09:00 No Benzodiazepines MISCELLANE DAILY [facility] Metoprolol Succinate 75 mg 08/28/20 14:05 08/29/20 09:06 Metoprolol Succinate Er 25 Mg Tab.Er.24h PO 75 mg DAILY [facility] Administration Protocol Nitroglycerin 0.4 mg 08/25/20 20:22 Nitroglycerin 0.4 Mg Tab.Subl SUBLINGUAL DAILY PRN Chest Pain Omeprazole 20 mg 08/28/20 16:30 08/29/20 06:25 Omeprazole 20 Mg Capsule.Dr PO 20 mg BID@0630,1630 [facility] Administration Ondansetron HCl 4 mg 08/25/20 17:38 08/25/20 21:37 Ondansetron Hcl 4 Mg/2 Ml Vial IVPUSH 4 mg Q8H PRN Administration Nausea and Vomiting Pharmacy Consult 1 each 08/25/20 12:03 Consult Rx Perform Med Rec MISCELLANE ONCE PRN Consult order Phenobarbital 30 mg 08/28/20 09:00 08/29/20 09:07 Phenobarbital 30 Mg Tablet PO 08/29/20 21:01 30 mg BID [facility] Administration Phenobarbital 15 mg 08/30/20 09:00 Phenobarbital 15 Mg Tablet PO 08/31/20 09:01 DAILY [facility] Risperidone 6 mg 08/25/20 21:00 08/28/20 21:38 Risperidone 3 Mg Tablet PO 6 mg BEDTIME [facility] Administration Sodium Chloride 3 ml 08/26/20 00:00 08/29/20 09:07 0.9 % Sodium Chloride Flush 3 Ml Syringe IVFLUSH 3 ml QSHIFT [facility]IA Administration Sodium Chloride 1 gm 08/28/20 21:00 08/29/20 14:56 Sodium Chloride Tab 1 Gm Tablet PO 1 gm TID [facility] Administration Tamsulosin HCl 0.4 mg 08/26/20 09:00 08/29/20 09:06 Tamsulosin Hcl 0.4 Mg Capsule PO 0.4 mg DAILY [facility] Administration Tiotropium [place] 1 puff 08/28/20 08:00 08/29/20 07:47 Tiotropium Jeffrey 18 Mcg Cap.W.Dev INHALE 1 puff RDAILY [facility] Administration Labs CBC & Chem 7: 08/26/20 08:37 08/29/20 05:17 Labs: Laboratory Results - last 24 hr 08/29/20 05:17 Sodium 132 L Potassium 3.6 Chloride 95 L Carbon Dioxide 26 Anion Gap 15 BUN 7 L Creatinine 0.57 Estim Creat Clear Calc 107.4 Estimated GFR > 60 Random Glucose 82 Calcium 8.3 L Assessment and Plan (1) Hyponatremia: Status: Acute (2) Anemia: Status: Acute Assessment and Plan: hospital d#5 70yo M with COPD on prn O2, daily EtOH use, HTN, HLD, bipolar disease, tobacco abuse, remote GBS, and 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 cortisol pending. improved with fluid restriction and NaCl -> return to prior dose of 1g tid # question of GI bleed - EGD done by Dr Valiente 08/27/20: Larynx:normal Esophagus: GE junction at 40 cm, diaphragm hiatus at 40 cm, esophagitis noted at GEJ, LA grade A. Stomach: Patchy gastric erythema cathy in fundus and antrum. Biopsies were obtained. Grade 2 flap valve on retroflexed examination of the cardia. Duodenum: Normal bulb and descending duodenum, - will change PPI to PO; pt will need f/u with GI as outpt + counseled to avoid NSAIDs + EtOH # urinary retention - hx BPH. Urology consult done- continue tamsulosin, finasteride added. if fails voiding trial, will d/c with Keyes in place. needs outpt Uro f/u # chronic EtOH use with moderate withdrawal risk - phenobarbital taper, thiamine, folate, counseling # CAD - continue statin, nitrate, ASA, B-robert # COPD - not in acute exacerbation; continue LAMA, ICS, prn RAFFI # bipolar disorder - continue bupropion, risperidone # tobacco abuse - nicotine patch # VTE ppx - SCDs # dispo - likely home with VNA tomorrow
[2020-08-29] MEDS: Lactated Ringers 1,000 ML 50 ML IV (18:36)
--- NOTE | 2020-08-29 18:40 | PC.NURSE ---
unable to scan LR ,pharmacy notified
[2020-08-29] MEDS: risperiDONE 3 MG TABLET 6 MG PO (20:54)
[2020-08-29] MEDS: Atorvastatin Calcium 40 MG TABLET PO (20:54)
[2020-08-30 04:00] VITALS: PULSE 100; RESP 18; TEMP 37; O2SAT 98
[2020-08-30 04:34] VITALS: BP 174/89
[2020-08-30] MEDS: Omeprazole 20 MG CAPSULE.DR PO (05:39)
[2020-08-30] MEDS: Fluticasone Propionate 250 MCG BLST.W.DEV 2 PUFF INHALE (07:53)
[2020-08-30 07:57] VITALS: PULSE 107; O2SAT 95
[2020-08-30 08:00] VITALS: BP 172/90; PULSE 92; RESP 20; TEMP 36.4; O2SAT 96
[2020-08-30] MEDS: 0.9 % Sodium Chloride Flush 3 ML SYRINGE IVFLUSH (09:22)
[2020-08-30] MEDS: Sodium Chloride Tab 1 GM TABLET PO (09:23)
[2020-08-30] MEDS: Aspirin Enteric Coated 81 MG TABLET.DR PO (09:23)
[2020-08-30 09:24] VITALS: BP 172/90; PULSE 92
[2020-08-30] MEDS: Meclizine HCl 12.5 MG TABLET PO (09:24)
[2020-08-30] MEDS: Tamsulosin HCL 0.4 MG CAPSULE PO (09:24)
[2020-08-30] MEDS: Metoprolol Succinate ER 25 MG TAB.ER.24H 75 MG PO (09:24)
[2020-08-30] MEDS: Acetaminophen 325 MG TABLET 650 MG PO (09:25)
[2020-08-30] MEDS: PHENobarbitaL 15 MG TABLET PO (09:26)
[2020-08-30] MEDS: Docusate Sodium 100 MG CAPSULE PO (09:26)
[2020-08-30 09:27] VITALS: BP 172/90; PULSE 92
[2020-08-30] MEDS: Isosorbide Mononitrate 60 MG TAB.ER.24H PO (09:27)
[2020-08-30] MEDS: buPROPion HCl XL 150 MG TAB.ER.24H PO (09:27)
[2020-08-30] MEDS: Finasteride 5 MG TABLET PO (09:57)
--- NOTE | 2020-08-30 11:19 | P.DS_ITS ---
DS: Providers Provider Date of Service: 08/30/20 Date of admission: 08/25/20 17:38 Primary care physician: Gabriela Moya MD Consults: 08/25/20 12:06 Consult to Nephrology Stat Consulting Provider: [facility] Reason for consultation: hyponatremia 08/25/20 17:39 Consult to Nephrology Routine Consulting Provider: Esequiel Perez Reason for consultation: Hyponatremia Has provider been notified: No 08/25/20 17:40 Consult to Urology Routine Consulting Provider: Ceasar Randolph Reason for consultation: Urinary retention Has provider been notified: No 08/25/20 17:41 Consult to Gastroenterology Routine Consulting Provider: Sariah Katz Reason for consultation: GI bleed anemia 08/26/20 13:17 Consult to Care Team Routine Comment: Reason for consultation: EtOH DS: Diagnosis Discharge Diagnosis (1) Hyponatremia: Status: Acute (2) SIADH (syndrome of inappropriate ADH production): Status: Acute (3) Coffee ground emesis: Status: Acute (4) Alcohol abuse: Status: Acute (5) Urinary retention due to benign prostatic hyperplasia: Status: Acute (6) Gastritis: Status: Acute DS: Medications Discharge Medications Home Medications: Home Medications Medication Instructions Recorded Confirmed Flovent HFA 2 puff INHALATION BID 04/06/20 08/25/20 acetaminophen 650 mg PO DAILY 04/06/20 08/25/20 aspirin 81 mg PO DAILY 04/06/20 08/25/20 atorvastatin 40 mg PO BEDTIME 04/06/20 08/25/20 bupropion HCl 1 tab PO DAILY 04/06/20 08/25/20 carboxymethylcellulose sodium 0.5 drp OPHTHALMIC (EYE) DAILY PRN 04/06/20 08/25/20 [Refresh Tears] diazepam 1 tab PO BEDTIME PRN 04/06/20 08/25/20 docusate sodium 1 cap PO BID 04/06/20 08/25/20 isosorbide mononitrate 60 mg PO DAILY 04/06/20 08/25/20 loratadine 1 tab PO DAILY 04/06/20 08/25/20 meclizine 12.5 mg PO TID 04/06/20 08/25/20 metoprolol succinate 1 tab PO DAILY 04/06/20 08/25/20 nitroglycerin 0.4 mg SUBLINGUAL DAILY PRN 04/06/20 08/25/20 risperidone 6 mg PO BEDTIME 04/06/20 08/25/20 sodium chloride 1 mg PO DAILY 04/06/20 08/25/20 tamsulosin 1 cap PO DAILY 04/06/20 08/25/20 Spiriva with HandiHaler 1 cap INHALATION DAILY 08/25/20 08/25/20 albuterol sulfate 90 inh INHALATION Q4-6H PRN 08/25/20 08/25/20 loperamide 4 mg PO DAILY PRN 08/25/20 08/25/20 Previous Rx's Medication Instructions Recorded finasteride [Proscar] 5 mg PO DAILY #30 tab 08/30/20 omeprazole 20 mg PO BID@0630,1630 #60 cap 08/30/20 DS: Summary Hospital Course Hospital Course: from admission H+P by hospitalist Quinton Rush, 08/25/20: History obtained from patient and ED physician. 70 year old male with history of COPD on PRN O2, daily etoh use, HTN, HLD, bipolar disorder, hx hyponatremia 2/2 SIADH on salt tabs, hx CAP, history of Guillain-Lexa in 2011 & active smoker who presents to the ED with 1 day history of multiple black loose stools and 4 episodes of dark brown emesis that occurred yesterday. He reports multiple diarrheal of black stool last night. It is associated with dull central abdominal pain. He has a history of GI bleed last year; reports an EGD was performed but no cause was identified. He denies any history of liver disease. He is on baby aspirin, no anticoagulation, no iron. He reports chills yesterday but no fevers. He has a chronic smoker's cough which is unchanged. He denies SOB or chest pain. He reports dizziness since the vomiting and black stools started. Work up in ED is noted for sodium of 118 tht has increased to 121 with IVF, INR is normal, Hgb is 13 and Hct 34. He also reports dificulty voiding for 24 hours and has a mccormack inserted and states he gets something like that once a year. The patient was admitted to the [facility]. Nephrology was consulted. Sodium corrected appropriately with fluid restriction and sodium chloride tablet supplementation. Serum TSH and cortisol were negative. LIkely cause of hyponatremia was SIADH with reset osmostat. However, he should have an outpatient CT of the brain and lungs to rule out underlying carcinoma given his strong smoking history. Regarding the report of coffee-ground emesis, stool guaiac was negative. He underwent EGD by Dr Valiente on 08/27/20, which demonstrated esophagitis at the GE junction and patchy gastric erythema in the f undus and anthrum, which was biopsied and showed gastritis without H pylori organisms. He was given IV PPI and switched to PO PPI. Regarding urinary retention, he was treated with finasteride added to tamsulosin and Mccormack. He passed a voiding trial and was discharged without Mccormack. He was deemed at moderate risk for alcohol withdrawal and as such was treated with phenobarbital taper and vitamins. He was strongly urged to quit drinking and was referred to community resources to establish and maintain sobriety. Smoking cessation was counseled. He was discharged home with VNA services. He should have a repeat BMP in 1 week, and as noted above, CT of the brain and lungs. He should follow up with his primary care doctor, along with Gastroenterology, Urology, and Nephrology. Time Spent with Patient Time attestation: Total time spent providing and/or coordinating discharge services: 40 Discharge coordination time: Greater than 30 minutes Physical Exam Vital Signs: Vital Signs: Last Vital Signs Temp 97.6 F 08/30/20 08:00 Pulse 92 08/30/20 09:27 Resp 20 08/30/20 08:00 BP 172/90 H 08/30/20 09:27 Pulse Ox 96 08/30/20 08:00 Body Mass Index 21.7 Gen: in no acute distress HEENT: sclera anicteric, moist mucus membranes Neck: supple Lungs: clear to auscultation bilaterally Heart: regular rate and rhythm, no murmurs Abd: soft, non-tender, non-distended Ext: no edema Skin: warm/well-perfused Neuro: alert and oriented x3, no focal findings Psych: appropriate affect DS: Data Data Completed and Pending Completed studies during hospitalization [Text1]: Pending at discharge 08/27/20 15:49 Surgical [PTH] Routine Fragment of gastric cardia-type mucosa with active erosive gastritis; gastric antral and body mucosa with mild chronic inactive gastritis; negative for Helicobacter pylori, intestinal metaplasia or dysplasia. Labs on day of discharge: Laboratory Results WBC 9.4 X10*3/uL (4.8-10.8) 08/26/20 08:37 RBC 4.22 X10*6/uL (4.60-5.80) L 08/26/20 08:37 Hgb 14.1 g/dl (14.0-18.0) 08/26/20 08:37 Hct 39.9 % (42-52) L 08/26/20 08:37 MCV 94.5 fL (80-98) 08/26/20 08:37 MCH 33.4 pg (27.0-33.0) H 08/26/20 08:37 MCHC 35.3 g/dl (31.0-36.0) 08/26/20 08:37 RDW 12.2 % (11.0-16.0) 08/26/20 08:37 Plt Count 197 X10*3/uL (160-400) 08/26/20 08:37 MPV 9.2 fL (9.4-12.4) L 08/26/20 08:37 Immature Gran % (Auto) 0.4 % (0.0-0.4) 08/26/20 08:37 Neut % (Auto) 75.4 % (45-73) H 08/26/20 08:37 Lymph % (Auto) 16.0 % (20-40) L 08/26/20 08:37 [place] % (Auto) 8.1 % (2-11) 08/26/20 08:37 Eos % (Auto) 0.0 % (0-4) 08/26/20 08:37 Baso % (Auto) 0.1 % (0-2) 08/26/20 08:37 Lymph # (Auto) 1.5 X10*3/uL (1.2-4.9) 08/26/20 08:37 [place] # (Auto) 0.8 X10*3/uL (0.1-1.2) 08/26/20 08:37 Eos # (Auto) 0.0 X10*3/uL (0.0-0.4) 08/26/20 08:37 Baso # (Auto) 0.0 X10*3/uL (0.0-0.2) 08/26/20 08:37 Abs Immat Gran (auto) 0.04 X10*3/uL (0.00-0.03) H 08/26/20 08:37 Absolute Neuts (auto) 7.1 X10*3/uL (2.0-8.3) 08/26/20 08:37 Absolute Nucleated RBC 0.000 X10*3/uL (0.0-0.012) 08/26/20 08:37 Nucleated RBC % (auto) 0.0 /100WBC (0.0-0.2) 08/26/20 08:37 PT 13.5 SEC (10.8-13.0) H 08/25/20 10:23 INR 1.1 (0.9-1.1) 08/25/20 10:23 APTT 35.5 SEC (24.1-38.0) 08/25/20 10:23 Sodium 132 mmol/L (135-145) L 08/29/20 05:17 Potassium 3.6 mmol/L (3.3-5.1) 08/29/20 05:17 Chloride 95 mmol/L (96-108) L 08/29/20 05:17 Carbon Dioxide 26 mmol/L (22-29) 08/29/20 05:17 Anion Gap 15 (12-20) 08/29/20 05:17 BUN 7 mg/dL (9-16) L 08/29/20 05:17 Creatinine 0.57 mg/dL (0.5-1.4) 08/29/20 05:17 Estim Creat Clear Calc 107.4 08/29/20 05:17 Estimated GFR > 60 08/29/20 05:17 Random Glucose 82 mg/dL (60-115) 08/29/20 05:17 Uric Acid 3.2 mg/dL (3.4-7.0) L 08/26/20 11:24 Calcium 8.3 mg/dL (8.4-10.2) L 08/29/20 05:17 Magnesium 1.8 mg/dL (1.6-2.6) 08/28/20 06:06 Total Bilirubin 0.9 mg/dL (0.0-1.0) 08/28/20 06:06 Direct Bilirubin 0.5 mg/dL (0.0-0.5) 08/25/20 10:23 AST 26 U/L (5-37) 08/28/20 06:06 ALT 14 U/L (0-40) 08/28/20 06:06 Alkaline Phosphatase 62 U/L (39-117) 08/28/20 06:06 Troponin I High Sens 9.8 ng/L (<3.5-35.0) 08/25/20 10:23 Total Protein 5.8 g/dL (6.5-8.0) L 08/28/20 06:06 Albumin 3.3 g/dL (3.5-5.0) L 08/28/20 06:06 TSH 0.53 uIU/mL (0.32-4.0) 08/28/20 06:06 Cortisol 8.7 mcg/dL 08/28/20 06:06 Urine Color YELLOW 08/25/20 11:30 Urine Appearance CLEAR 08/25/20 11:30 Urine pH 7.0 (5.0-8.0) 08/25/20 11:30 Ur Specific [place] <= 1.005 (1.005-1.025) 08/25/20 11:30 Urine Protein NEG MG/DL (NEG-TRACE) 08/25/20 11:30 Urine Glucose (UA) NEG MG/DL (NEG) 08/25/20 11:30 Urine Ketones NEG MG/DL (NEG) 08/25/20 11:30 Urine Blood NEG (NEG) 08/25/20 11:30 Urine Nitrite NEG (NEG) 08/25/20 11:30 Ur Leukocyte Esterase NEG (NEG) 08/25/20 11:30 Urine Osmolality 274 mosm/kg (373-1093) L 08/27/20 02:40 Ur Random Sodium 50.0 mmol/L 08/27/20 02:40 Ur Random Uric Acid 23.5 mg/dL 08/27/20 02:40 Stool Occult Blood NEG (NEG) 08/25/20 10:23 Ethyl Alcohol < 10 mg/dL 08/25/20 10:23 COVID-19 (GARRETT) Negative (Negative) 08/25/20 10:23 COVID-19 Clin Com See Note 08/25/20 10:23 Blood Type O Positive 08/25/20 11:30 Antibody Screen NEGATIVE 08/25/20 11:30 Discharge Plan Discharge Patient Disposition: Home Health Service Referrals: Ceasar Randolph MD [Physician] - Pavel Valiente MD [Physician] - Esequiel Perez MD [Physician] - Discharge Medications: New omeprazole 20 mg capsule,delayed release(DR/EC) 20 mg PO BID@0630,1630 Qty: 60 RF: 0 finasteride [Proscar] 5 mg Tablet 5 mg PO DAILY Qty: 30 RF: 0 nicotine 14 mg/24 hr patch 24 hour 1 patch transdermal DAILY Qty: 28 RF: 0 Continued acetaminophen 650 mg tablet extended release 650 mg PO DAILY RF: 0 atorvastatin 40 mg tablet 40 mg PO BEDTIME RF: 0 bupropion HCl 150 mg tablet sustained-release 12 hr 1 tab PO DAILY RF: 0 metoprolol succinate 50 mg tablet extended release 24 hr 1 tab PO DAILY RF: 0 risperidone 4 mg tablet 6 mg PO BEDTIME RF: 0 isosorbide mononitrate 30 mg tablet extended release 24 hr 60 mg PO DAILY RF: 0 sodium chloride 1 gram tablet 1 mg PO DAILY RF: 0 meclizine 12.5 mg tablet 12.5 mg PO TID RF: 0 aspirin 81 mg tablet,delayed release (DR/EC) 81 mg PO DAILY RF: 0 tamsulosin 0.4 mg capsule 1 cap PO DAILY RF: 0 carboxymethylcellulose sodium [Refresh Tears] 0.5 % drops 0.5 drp ophthalmic (eye) DAILY PRN (Reason: Dry Eyes) RF: 0 nitroglycerin 0.4 mg tablet, sublingual 0.4 mg sublingual DAILY PRN (Reason: Chest Pain) RF: 0 docusate sodium 100 mg capsule 1 cap PO BID RF: 0 Flovent HFA 220 mcg/actuation HFA aerosol inhaler 2 puff inhalation BID RF: 0 loratadine 10 mg tablet 1 tab PO DAILY RF: 0 diazepam 5 mg tablet 1 tab PO BEDTIME PRN (Reason: Anxiety) RF: 0 albuterol sulfate 90 mcg/actuation HFA aerosol inhaler 90 inh inhalation Q4-6H PRN (Reason: Wheezing) RF: 0 loperamide 2 mg capsule 4 mg PO DAILY PRN (Reason: Diarrhea) RF: 0 Spiriva with HandiHaler 18 mcg Capsule, W/Inhalation Device 1 cap INHALATION DAILY RF: 0 Discharge Orders: Discharge Order (Routine); Ordered 03/19/21 Ordered By: Terrance North Diet: other Activity on Discharge: no alcohol Stand Alone Forms: Patient Portal Discharge page Other Ambulatory Orders: Basic Metabolic Panel (Routine) Timeframe: 1 Week Facility: [facility] - Location: Laboratory Ordered By: Terrance North CT chest wo con (Routine) Timeframe: 2 Weeks Facility: [facility] - Location: CT Scan Ordered By: Terrance North CT head/brain wo con (Routine) Timeframe: 2 Weeks Facility: [facility] - Location: CT Scan Ordered By: Terrance North Care Plan Goals: 1. sobriety 2. healthy GI tract 3. safe sodium level 4. relief of urinary symptoms 5. quit smoking Health Concerns: 1. alcohol dependence 2. gastritis 3. hyponatremia 4. urinary retention 5. tobacco abuse Plan of Treatment: 1. avoid alcohol. referred to community resources. 2. avoid alcohol and NSAIDs [ibuprofen, naproxen, etc.] take omeprazole 20 mg twice daily. 3. restrict fluid to 1200 mL/day. take sodium chloride 1 gram 3x a day. recheck labs [non-fasting BMP] in 1 week. please obtain an outpatient CT of the lungs and the had to rule out underlying cancer. 4. continue tamsulosin. add finasteride 5 mg daily. 5. quit smoking. use nicotine patch to help. FOLLOW UP IN 1 WEEK WITH YOUR PRIMARY CARE DOCTOR, DR BANKS FOLLOW UP WITH THESE SPECIALISTS IN 2-4 WEEKS: Ceasar Randolph, Urology [address] [place] [address], [address] [place] [address] Esequiel Perez, Nephrology [address] [place] [address], [address] [place] [address] [phone]) [phone] Pavel Valiente, Gastroenterology [address] [place] [address] [address] [place] [address] Patient Instructions: Gastritis (DC), Urinary Retention in Men (ED), Enlarged Prostate (BPH) (DC), Hyponatremia (DC), Alcohol Dependence (ED)
--- NOTE | 2020-08-30 12:12 | MHC.CM.PN ---
Patient will be discharging home today at 1pm via [facility] transport. Patient will be getting services from [facility], [facility] is aware.
== END 2020-08-30 13:00 | disposition home health service (06) | DRG 368 ==
LOC: HO.ED 13:31 → HO.EDOVER 17:44 → HO.IMC 19:38
PROVIDERS: Internal Medicine; Internal Medicine Gastroenterology; Internal Medicine Nephrology; Physician Assistant; Admitting Provider Internal Medicine; Emergency Provider Emergency Medicine; PCP Internal Medicine; Visit Provider Family Medicine
PROC: 0DJ08ZZ Inspection of Upper Intestinal Tract, Via Natural or Artificial Opening Endoscopic (ICD-10-PCS; CPT 43235; principal; 2020-08-27 10:40)
DX: K20.91 Esophagitis, unspecified with bleeding (principal); K29.71 Gastritis, unspecified, with bleeding; E22.2 Syndrome of inappropriate secretion of antidiuretic hormone; N40.1 Benign prostatic hyperplasia with lower urinary tract symptoms; F31.9 Bipolar disorder, unspecified; I25.10 Atherosclerotic heart disease of native coronary artery without angina pectoris; J44.9 Chronic obstructive pulmonary disease, unspecified; K44.9 Diaphragmatic hernia without obstruction or gangrene; F10.10 Alcohol abuse, uncomplicated; R33.8 Other retention of urine; E78.5 Hyperlipidemia, unspecified; Z99.81 Dependence on supplemental oxygen; F17.210 Nicotine dependence, cigarettes, uncomplicated; Z71.6 Tobacco abuse counseling; Z79.82 Long term (current) use of aspirin; Z79.899 Other long term (current) drug therapy
CPT/HCPCS: 36415; 80048; 80051; 80053; 80076; 80320; 81003; 82272; 82533; 83735; 83935; 84295; 84300; 84443; 84484; 84550; 84560; 85025; 85610; 85730; 86850; 86900; 87635; 88305; 88342; 93005; 96361; 96374; 97116; 97161; 99285; 99291; C1758; J2405; J2560